=== PATIENT | male | born 1945 | race Caucasian/White ===

== ENCOUNTER 2018-02-15 22:03 | Emergency (ER) | payer MEDICARE ==
[2018-02-15 22:18] VITALS: RESP 20; TEMP 99.1
[2018-02-15] MEDS ORDERED: ORPHENADRINE 30 MG/ML 2 ML VIAL IVP STA (22:25)
--- NOTE | 2018-02-15 22:31 | ED ---
Back Pain HPI <BiankaosmelJakub - Last Filed: 02/16/18 02:01> - General Source: patient, RN notes reviewed Mode of arrival: EMS Limitations: no limitations <Teagan Rodney - Last Filed: 02/16/18 03:31> - General Chief Complaint: Back Pain/Injury Stated Complaint: lower back pain Time Seen by Provider: 02/15/18 22:05 - History of Present Illness Initial Comments: This is a 73-year-old male who presents to the emergency department with chief complaint of low back pain. Patient was transported to the emergency department via EMS. Patient does have mild dementia but is able to answer all questions appropriately. Patient reports a history of low back pain. He denies any recent injuries or trauma. Patient states this evening he was lying in bed, reached over to grab food and felt pain in his low back. He states pain is positional. Denies saddle paresthesias or loss of bladder or bowel function. Denies numbness or tingling or radiation of pain down the legs. Denies recent fevers or chills, chest pain or shortness of breath, abdominal pain, nausea or vomiting. EMS reports that patient was ambulatory. (Teagan Rodney) - Related Data Home Medications Medication Instructions Recorded Confirmed Acetaminophen [Tylenol] 1,000 mg PO Q6H PRN 02/15/18 02/15/18 Albuterol Inhaler [Ventolin Hfa 2 puff INHALATION RT-Q4H PRN 02/15/18 02/15/18 Inhaler] Ascorbic Acid [Vitamin C] 500 mg PO DAILY 02/15/18 02/15/18 Atorvastatin [Lipitor] 20 mg PO DAILY 02/15/18 02/15/18 Chlorhexidine Gluconate [Peridex] 15 ml PO BID 02/15/18 02/15/18 Cyanocobalamin (Vitamin B-12) 500 mcg PO DAILY 02/15/18 02/15/18 [Vitamin B-12] Diltiazem HCl [Diltiazem 24Hr ER] 120 mg PO DAILY 02/15/18 02/15/18 Ferrous Sulfate [Iron] 325 mg PO DAILY 02/15/18 02/15/18 Folic Acid 0.8 mg PO DAILY 02/15/18 02/15/18 Pantoprazole Sodium [Protonix] 40 mg PO HS 02/15/18 02/15/18 Polymyxin B-Trimeth Sulf Ophth 1 drop BOTH EYES Q3H 02/15/18 02/15/18 [Polytrim Opthalmic] QUEtiapine [SEROquel] 50 mg PO HS 02/15/18 02/15/18 Sucralfate [Carafate] 1 gm PO QID 02/15/18 02/15/18 Sulfamethoxazole/Trimethoprim 1 tab PO BID 02/15/18 02/15/18 [Bactrim DS 800-160 mg] levETIRAcetam [Keppra] 500 mg PO Q12HR 02/15/18 02/15/18 traZODone HCL [Desyrel] 100 mg PO HS 02/15/18 02/15/18 Allergies Allergy/AdvReac Type Severity Reaction Status Date / Time No Known Allergies Allergy Verified 02/15/18 22:41 Review of Systems ROS Other: All systems not noted in ROS Statement are negative. <Jakub Gramajo - Last Filed: 02/16/18 02:01> ROS Other: All systems not noted in ROS Statement are negative. <Teagan Rodney - Last Filed: 02/16/18 03:31> ROS Statement: Those systems with pertinent positive or pertinent negative responses have been documented in the HPI. Past Medical History Past Medical History: CVA/TIA, GERD/Reflux, Hyperlipidemia, Hypertension History of Any Multi-Drug Resistant Organisms: None Reported Past Psychological History: No Psychological Hx Reported Smoking Status: Never smoker Past Alcohol Use History: Occasional Past Drug Use History: None Reported <Teagan Rodney - Last Filed: 02/16/18 03:31> General Exam <Jakub Gramajo - Last Filed: 02/16/18 02:01> Limitations: no limitations Back exam: Present: normal inspection, other (Bilateral SI joint tenderness). Absent: paraspinal tenderness, vertebral tenderness <Teagan Rodney - Last Filed: 02/16/18 03:31> - General Exam Comments Initial Comments: General: Awake and alert, well-developed; in no apparent distress. Pleasant elderly male with moments of confusion. HEENT: Head atraumatic, normocephalic. Pupils are equal, round and reactive to light. Extraocular movements intact. Oropharynx moist without erythema or exudate. Neck: Supple. Normal ROM. Cardiovascular: Regular rate and rhythm. No murmurs, rubs or gallops. Chest symmetrical. Respiratory: Lungs clear to auscultation bilaterally. No wheezes, rales or rhonchi. Normal respiratory effort with no use of accessory muscles. Abdomen: Soft, non-tender, non-distended. No rigidity, rebound or guarding. Normal bowel sounds in all 4 quadrants. Musculoskeletal: Normal ROM, no tenderness bilateral upper and lower extremities. Ambulating normally. Skin: [place], warm and dry without rashes or lesions. Neurological: Alert and oriented x3 with moments of confusion. CN II-XII grossly intact. Speech is fluent and answers are appropriate. No focal neuro deficits. Psychiatric: Normal mood and affect. No overt signs of depression or anxiety noted. (Teagan Rodney) Vital Signs 02/15/18 02/16/18 22:11 01:10 Temperature 99.1 F 99.1 F Pulse Rate 87 90 Respiratory 20 20 Rate Blood Pressure 140/66 144/68 O2 Sat by Pulse 98 99 Oximetry Medical Decision Making <Jakub Gramajo - Last Filed: 02/16/18 02:01> - Radiology Data Radiology results: report reviewed <Teagan Rodney - Last Filed: 02/16/18 03:31> - Medical Decision Making I saw this patient in conjunction with the physician household personal assistant. I performed independent history and physical exam. Agree with case management. (Jakub Gramajo) This is a 73-year-old male who presents to the emergency department via EMS with chief complaint of low back pain. Patient denies any recent falls, injuries or trauma. 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 His son was contacted who stated that patient has been complaining of low back pain for a couple of days. There is mild tenderness on palpation of bilateral SI joints. An x-ray of the lumbar spine was obtained which revealed an old mild L4 compression fracture, however no acute abnormalities. Patient has been ambulatory in the emergency department. His vital signs are stable. He has no other complaints. He was given Norflex and patient states his symptoms have improved. He will be discharged back home at this time. All questions answered. (Teagan Rodney) - Radiology Data Lumbar spine x-ray impression: Old mild L4 compression fracture. No acute bony abnormality. (Teagan Rodney) Disposition <Jakub Gramajo - Last Filed: 02/16/18 02:01> Is patient prescribed a controlled substance at d/c from ED?: No Time of Disposition: 23:38 <Teagan Rodney - Last Filed: 02/16/18 03:31> Clinical Impression: Mechanical back pain Disposition: HOME SELF-CARE Condition: Good Instructions: Acute Low Back Pain (ED) Additional Instructions: Please follow up with primary care provider within 1-2 days. Return to emergency department if symptoms should worsen or any concerns arise. Referrals: None,Stated [Primary Care Provider] - 1-2 days Toy Benitez DO [Doctor of Osteopathic Medicine] - 1-2 days
--- NOTE | 2018-02-15 23:32 | XR ---
EXAMINATION TYPE: XR lumbar spine 2 or 3V DATE OF EXAM: 02/15/2018 COMPARISON: NONE HISTORY: Back pain TECHNIQUE: 3 views FINDINGS: There is 25% anterior wedging of L4. Vertebra have normal alignment. There is mild spurring of the endplates. Posterior elements are intact. Sacroiliac joints are normal. IMPRESSION: Old mild L4 compression fracture. No acute bony abnormality.
[2018-02-16 02:44] VITALS: BP 144/68; PULSE 90
== END 2018-02-16 01:10 | disposition home or self-care (01) ==
LOC: EC 22:03
DX: M54.5 Low back pain (principal); G30.0 Alzheimer's disease with early onset; F02.80 Dementia in other diseases classified elsewhere, unspecified severity, without behavioral disturbance, psychotic disturbance, mood disturbance, and anxiety; E78.5 Hyperlipidemia, unspecified; I10 Essential (primary) hypertension; K21.9 Gastro-esophageal reflux disease without esophagitis; Z79.899 Other long term (current) drug therapy
CPT/HCPCS: 72100; 99284; 96374; J2360

== ENCOUNTER 2019-03-26 14:31 | Emergency (ER) | payer MEDICARE, OTHER ==
[2019-03-26 14:40] VITALS: RESP 16; TEMP 98.1
[2019-03-26] MEDS ORDERED: MECLIZINE 12.5 MG TAB PO STA (15:34)
[2019-03-26] MEDS ORDERED: SODIUM CHLORIDE 0.9% 500 ML 500 ML IV STA (15:34)
--- NOTE | 2019-03-26 16:03 | ED ---
Dizziness HPI - General Chief Complaint: Dizziness Stated Complaint: dizziness Time Seen by Provider: 03/26/19 15:34 Source: patient, EMS, RN notes reviewed Mode of arrival: EMS Limitations: no limitations - History of Present Illness Initial Comments: This a 74-year-old male presents emergency Department from [facility] chief complaint episode of dizziness. Patient states that he was dizzy earlier today. Patient states he attempted to stand him up and states that he did have blood pressure or pulse was low. Patient states that currently he has no symptoms. Patient states that shortly after they tried to stand him all the symptoms had resolved. He has no current headache. He states when he was dizzy he had some blurred vision but that had resolved. Patient does have a history of dementia, prior CVA. General the room states that he seems to be at his normal baseline at this time. There is no focal weakness. Patient does have difficulty ambulating normally secondary to chronic knee pain. Patient had no reports of chest pain, shortness breath, nausea, vomiting, diarrhea constipation no recent fevers or chills. - Related Data Home Medications Medication Instructions Recorded Confirmed Atorvastatin [Lipitor] 20 mg PO HS 02/15/18 03/26/19 Ferrous Sulfate [Iron] 325 mg PO HS 02/15/18 03/26/19 Pantoprazole Sodium [Protonix] 40 mg PO HS 02/15/18 03/26/19 traZODone HCL [Desyrel] 100 mg PO HS 02/15/18 03/26/19 Albuterol Sulfate [Proair 2 puff PO RT-Q4H PRN 03/26/19 03/26/19 Respiclick] Artificial Tears-Hypromellose 2 drops BOTH EYES TID PRN 03/26/19 03/26/19 [Artificial Tear Drops] Aspirin EC [Ecotrin Low Dose] 81 mg PO HS 03/26/19 03/26/19 Donepezil [Aricept] 2.5 mg PO HS 03/26/19 03/26/19 Gabapentin [Neurontin] 300 mg PO BID 03/26/19 03/26/19 HYDROcodone/APAP 5-325MG [[place] 1 tab PO Q8H PRN 03/26/19 03/26/19 5-325] HYDROcodone/APAP 5-325MG [[place] 1 tab PO TID@0700,1300,1900 03/26/19 03/26/19 5-325] Ipratropium Nebulized [Atrovent 0.5 mg INHALATION RT-Q4H PRN 03/26/19 03/26/19 Nebulized 0.2 MG/ML] Ketoconazole 2% Cream [Nizoral 2%] 1 applic TOPICAL BID@0700,1600 03/26/19 03/26/19 Ketoconazole 2% Shampoo [Nizoral] 1 applic TOPICAL DIRECTED 03/26/19 03/26/19 LORazepam [Ativan] 0.5 mg PO TID@0000,0700,1600 03/26/19 03/26/19 LORazepam [Ativan] 1 mg PO DAILY@1700 03/26/19 03/26/19 Lidocaine HCl [Aspercreme] 1 applic TOPICAL TID 03/26/19 03/26/19 Magnesium Hydroxide [Milk of 2,400 mg PO Q72H PRN 03/26/19 03/26/19 Magnesia] Melatonin 3 mg PO HS PRN 03/26/19 03/26/19 Menthol [Biofreeze] 1 applic TOPICAL Q8H PRN 03/26/19 03/26/19 Mylanta 30 ml PO Q6H PRN 03/26/19 03/26/19 Polyethylene Glycol 3350 [Miralax] 17 gram PO DAILY@1600 03/26/19 03/26/19 Potassium Chloride 8 meq PO BID 03/26/19 03/26/19 Sennosides [Senna] 8.6 mg PO HS 03/26/19 03/26/19 Torsemide [Demadex] 40 mg PO BID 03/26/19 03/26/19 amLODIPine [Norvasc] 10 mg PO DAILY 03/26/19 03/26/19 risperiDONE [RisperDAL] 0.25 mg PO HS 03/26/19 03/26/19 Allergies Allergy/AdvReac Type Severity Reaction Status Date / Time cat dander Allergy Dyspnea Verified 03/26/19 16:11 Review of Systems ROS Statement: Those systems with pertinent positive or pertinent negative responses have been documented in the HPI. ROS Other: All systems not noted in ROS Statement are negative. Past Medical History Past Medical History: CVA/TIA, GERD/Reflux, Hyperlipidemia, Hypertension History of Any Multi-Drug Resistant Organisms: None Reported Past Surgical History: No Surgical Hx Reported Past Psychological History: No Psychological Hx Reported Smoking Status: Never smoker Past Alcohol Use History: Occasional Past Drug Use History: None Reported General Exam Limitations: no limitations General appearance: alert, in no apparent distress Head exam: Present: atraumatic, normocephalic, normal inspection Eye exam: Present: normal appearance, PERRL, EOMI. Absent: scleral icterus, conjunctival injection, periorbital swelling ENT exam: Present: normal exam, normal oropharynx, mucous membranes moist Neck exam: Present: normal inspection, full ROM. Absent: tenderness, meningismus, lymphadenopathy Respiratory exam: Present: normal lung sounds bilaterally. Absent: respiratory distress, wheezes, rales, rhonchi, stridor Cardiovascular Exam: Present: regular rate, normal rhythm, normal heart sounds. Absent: systolic murmur, diastolic murmur, rubs, gallop, clicks Neurological exam: Present: alert, oriented X3, CN II-XII intact, reflexes normal, other (Finger to nose intact bilaterally without over shooting). Absent: motor sensory deficit Skin exam: Present: warm, dry, intact, normal color. Absent: rash Course Vital Signs 03/26/19 14:33 Temperature 98.1 F Pulse Rate 83 Respiratory 16 Rate Blood Pressure 144/86 O2 Sat by Pulse 98 Oximetry Medical Decision Making - Medical Decision Making Patient's found to be mildly dehydrated was given a fluid bolus. Patient is asy mptomatic. Patient had a near syncopal episode at [facility]. Patient was symptom-free prior arrival. Patient's blood pressure, heart rate has been within normal limits. I did perform a CT, x-ray, urinalysis and labs. Patient will be discharged back to [facility]. Patient and family agree. - Lab Data Result diagrams: 03/26/19 15:49 03/26/19 15:49 Lab Results 03/26/19 03/26/19 03/26/19 Range/Units 15:49 15:49 15:49 WBC 6.7 (3.8-10.6) k/uL RBC 4.43 (4.30-5.90) m/uL Hgb 14.0 (13.0-17.5) gm/dL Hct 40.8 (39.0-53.0) % MCV 92.1 (80.0-100.0) fL MCH 31.6 (25.0-35.0) pg MCHC 34.3 (31.0-37.0) g/dL RDW 13.0 (11.5-15.5) % Plt Count 184 (150-450) k/uL Neutrophils % 66 % Lymphocytes % 20 % Monocytes % 9 % Eosinophils % 3 % Basophils % 1 % Neutrophils # 4.5 (1.3-7.7) k/uL Lymphocytes # 1.3 (1.0-4.8) k/uL Monocytes # 0.6 (0-1.0) k/uL Eosinophils # 0.2 (0-0.7) k/uL Basophils # 0.1 (0-0.2) k/uL Sodium 139 (137-145) mmol/L Potassium 3.9 (3.5-5.1) mmol/L Chloride 102 (98-107) mmol/L Carbon Dioxide 26 (22-30) mmol/L Anion Gap 11 mmol/L BUN 27 H (9-20) mg/dL Creatinine 1.59 H (0.66-1.25) mg/dL Est GFR (CKD-EPI)AfAm 49 (>60 ml/min/1.73 sqM) Est GFR (CKD-EPI)NonAf 42 (>60 ml/min/1.73 sqM) Glucose 118 H (74-99) mg/dL Calcium 9.1 (8.4-10.2) mg/dL Total Bilirubin 0.8 (0.2-1.3) mg/dL AST 35 (17-59) U/L ALT 20 L (21-72) U/L Alkaline Phosphatase 63 (38-126) U/L Troponin I <0.012 (0.000-0.034) ng/mL Total Protein 8.0 (6.3-8.2) g/dL Albumin 4.3 (3.5-5.0) g/dL Urine Color Urine Appearance (Clear) Urine pH (5.0-8.0) Ur Specific [place] (1.001-1.035) Urine Protein (Negative) Urine Glucose (UA) (Negative) Urine Ketones (Negative) Urine Blood (Negative) Urine Nitrite (Negative) Urine Bilirubin (Negative) Urine Urobilinogen (<2.0) mg/dL Ur Leukocyte Esterase (Negative) 03/26/19 Range/Units 16:30 WBC (3.8-10.6) k/uL RBC (4.30-5.90) m/uL Hgb (13.0-17.5) gm/dL Hct (39.0-53.0) % MCV (80.0-100.0) fL MCH (25.0-35.0) pg MCHC (31.0-37.0) g/dL RDW (11.5-15.5) % Plt Count (150-450) k/uL Neutrophils % % Lymphocytes % % Monocytes % % Eosinophils % % Basophils % % Neutrophils # (1.3-7.7) k/uL Lymphocytes # (1.0-4.8) k/uL Monocytes # (0-1.0) k/uL Eosinophils # (0-0.7) k/uL Basophils # (0-0.2) k/uL Sodium (137-145) mmol/L Potassium (3.5-5.1) mmol/L Chloride (98-107) mmol/L Carbon Dioxide (22-30) mmol/L Anion Gap mmol/L BUN (9-20) mg/dL Creatinine (0.66-1.25) mg/dL Est GFR (CKD-EPI)AfAm (>60 ml/min/1.73 sqM) Est GFR (CKD-EPI)NonAf (>60 ml/min/1.73 sqM) Glucose (74-99) mg/dL Calcium (8.4-10.2) mg/dL Total Bilirubin (0.2-1.3) mg/dL AST (17-59) U/L ALT (21-72) U/L Alkaline Phosphatase (38-126) U/L Troponin I (0.000-0.034) ng/mL Total Protein (6.3-8.2) g/dL Albumin (3.5-5.0) g/dL Urine Color Light Yellow Urine Appearance Clear (Clear) Urine pH 7.0 (5.0-8.0) Ur Specific [place] 1.008 (1.001-1.035) Urine Protein Negative (Negative) Urine Glucose (UA) Negative (Negative) Urine Ketones Negative (Negative) Urine Blood Negative (Negative) Urine Nitrite Negative (Negative) Urine Bilirubin Negative (Negative) Urine Urobilinogen <2.0 (<2.0) mg/dL Ur Leukocyte Esterase Negative (Negative) Disposition Clinical Impression: Dehydration, Near syncope Disposition: HOME SELF-CARE Condition: Stable Instructions (If sedation given, give patient instructions): Dizziness (ED) Additional Instructions: Please return to the Emergency Department if symptoms worsen or any other con cerns. Is patient prescribed a controlled substance at d/c from ED?: No Referrals: Jordi Oliver MD [Primary Care Provider] - 1-2 days Time of Disposition: 16:55
[2019-03-26 16:07] LABS: Basophils # (A) 0.1 k/uL (0-0.2); Basophils % (A) 1 %; Eosinophils # (A) 0.2 k/uL (0-0.7); Eosinophils % (A) 3 %; HCT 40.8 % (39.0-53.0); Lymphocytes # (A) 1.3 k/uL (1.0-4.8); Lymphocytes % (A) 20 %; MCH 31.6 pg (25.0-35.0); MCHC 34.3 g/dL (31.0-37.0); MCV 92.1 fL (80.0-100.0); Mean Platelet Volume 7.5; Monocytes # (A) 0.6 k/uL (0-1.0); Monocytes % (A) 9 %; Neutrophils # (A) 4.5 k/uL (1.3-7.7); Neutrophils % (A) 66 %; Platelet Count 184 k/uL (150-450); RBC 4.43 m/uL (4.30-5.90); WBC 6.7 k/uL (3.8-10.6)
--- NOTE | 2019-03-26 16:08 | XR ---
EXAMINATION TYPE: XR chest 2V DATE OF EXAM: 03/26/2019 COMPARISON: NONE HISTORY: Dizziness and weakness. TECHNIQUE: Frontal and lateral views of the chest are obtained. FINDINGS: There is chronic parenchymal change without suspicious focal air space opacity, pleural ef fusion, or pneumothorax seen. The cardiac silhouette size is enlarged. The osseous structures are demineralized. 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 Overlying epicardial pacer wires. Metallic density near aortic root of uncertain etiology perhaps fractured stent. IMPRESSION: Chronic changes and cardiomegaly without acute pulmonary process.
[2019-03-26 16:17] LABS: Albumin 4.3 g/dL (3.5-5.0); Calcium 9.1 mg/dL (8.4-10.2); Total Bilirubin 0.8 mg/dL (0.2-1.3)
[2019-03-26 16:24] LABS: Potassium 3.9 mmol/L (3.5-5.1)
--- NOTE | 2019-03-26 16:24 | CT ---
EXAMINATION TYPE: CT brain wo con DATE OF EXAM: 03/26/2019 HISTORY: Dizziness. CT DLP: 1143.4 mGycm. Automated Exposure Control for Dose Reduction was Utilized. TECHNIQUE: CT scan of the head is performed without contrast. COMPARISON: None. FINDINGS: There is no acute intracranial hemorrhage or midline shift identified. There is diffuse v entricular and sulcal prominence consistent with diffuse age-related cerebral atrophy. There is low- attenuation in the periventricular white matter consistent with chronic small vessel ischemic change. There is small mucous retention cyst or polyp in the posterior left ethmoid sinus axial image 41. Re mainder of visualized sinuses are clear. Globes are intact bilaterally. Vascular calcification distal internal carotid arteries bilaterally. IMPRESSION: No acute intracranial hemorrhage or midline shift. There is mild to moderate diffuse ag e-related cerebral atrophy and chronic small vessel ischemic change noted.
[2019-03-26 16:48] LABS: Appearance,Urine Clear (Clear); Bilirubin,Urine Negative (Negative); Blood,Urine Negative (Negative); Color,Urine Light Yellow; Glucose,Urine (UA) Negative (Negative); Ketones,Urine Negative (Negative); Leukocyte Esterase,Urine Negative (Negative); Nitrite,Urine Negative (Negative); Protein,Urine Negative (Negative); Specific Gravity,Urine 1.008 (1.001-1.035); Urobilinogen,Urine <2.0 mg/dL (<2.0)
[2019-03-26 17:09] VITALS: BP 141/79; PULSE 70
== END 2019-03-26 17:10 | disposition home or self-care (01) ==
LOC: EC 14:31
DX: E86.0 Dehydration (principal); R55 Syncope and collapse; G89.29 Other chronic pain; M25.569 Pain in unspecified knee; K21.9 Gastro-esophageal reflux disease without esophagitis; E78.5 Hyperlipidemia, unspecified; I10 Essential (primary) hypertension; Z91.048 Other nonmedicinal substance allergy status; Z79.82 Long term (current) use of aspirin; Z79.891 Long term (current) use of opiate analgesic; Z79.899 Other long term (current) drug therapy; Z86.73 Personal history of transient ischemic attack (TIA), and cerebral infarction without residual deficits
CPT/HCPCS: 36415; 70450; 71046; 80053; 81003; 84484; 85025; 99285

== ENCOUNTER 2020-06-09 04:39 | Inpatient (IN) | payer MEDICARE, OTHER ==
[2020-06-09] MEDS ORDERED: ACETAMINOPHEN TAB 325 MG TAB PO PRN ×2 (04:42→09:32)
--- NOTE | 2020-06-09 04:47 | ED ---
Recheck HPI - General Chief Complaint: Shortness of Breath Stated Complaint: SOB, +COVID Time Seen by Provider: 06/09/20 04:42 Source: patient, EMS, RN notes reviewed, old records reviewed Mode of arrival: EMS Limitations: altered mental status, physical limitation - History of Present Illness Initial Comments: This is a 75 show male DF for evaluation patient Dese for evaluation of known coronavirus infection with hypoxia. Patient requiring supplemental O2 which is a new symptom for him. Patient himself is a poor strain secondary severe dementia history obtained from chart MD Complaint: other (Known coronavirus with hypoxia) -: unknown Returns Today for: persistent/worsening pain related to initial visit, other (Worsening oxygenation) Symptoms Since Prior Visit: fever Associated Symptoms: none Treatments Prior to Arrival: other medications - Related Data Home Medications Medication Instructions Recorded Confirmed Atorvastatin [Lipitor] 20 mg PO HS 02/15/18 03/26/19 Ferrous Sulfate [Iron] 325 mg PO HS 02/15/18 03/26/19 Pantoprazole Sodium [Protonix] 40 mg PO HS 02/15/18 03/26/19 traZODone HCL [Desyrel] 100 mg PO HS 02/15/18 03/26/19 Albuterol Sulfate [Proair 2 puff PO RT-Q4H PRN 03/26/19 03/26/19 Respiclick] Artificial Tears-Hypromellose 2 drops BOTH EYES TID PRN 03/26/19 03/26/19 [Artificial Tear Drops] Aspirin EC [Ecotrin Low Dose] 81 mg PO HS 03/26/19 03/26/19 Donepezil [Aricept] 2.5 mg PO HS 03/26/19 03/26/19 Gabapentin [Neurontin] 300 mg PO BID 03/26/19 03/26/19 HYDROcodone/APAP 5-325MG [[place] 1 tab PO Q8H PRN 03/26/19 03/26/19 5-325] HYDROcodone/APAP 5-325MG [[place] 1 tab PO TID@0700,1300,1900 03/26/19 03/26/19 5-325] Ipratropium Nebulized [Atrovent 0.5 mg INHALATION RT-Q4H PRN 03/26/19 03/26/19 Nebulized 0.2 MG/ML] Ketoconazole 2% Cream [Nizoral 2%] 1 applic TOPICAL BID@0700,1600 03/26/19 03/26/19 Ketoconazole 2% Shampoo [Nizoral] 1 applic TOPICAL DIRECTED 03/26/19 03/26/19 LORazepam [Ativan] 0.5 mg PO TID@0000,0700,1600 03/26/19 03/26/19 LORazepam [Ativan] 1 mg PO DAILY@1700 03/26/19 03/26/19 Lidocaine HCl [Aspercreme] 1 applic TOPICAL TID 03/26/19 03/26/19 Magnesium Hydroxide [Milk of 2,400 mg PO Q72H PRN 03/26/19 03/26/19 Magnesia] Melatonin 3 mg PO HS PRN 03/26/19 03/26/19 Menthol [Biofreeze] 1 applic TOPICAL Q8H PRN 03/26/19 03/26/19 Mylanta 30 ml PO Q6H PRN 03/26/19 03/26/19 Potassium Chloride 8 meq PO BID 03/26/19 03/26/19 Sennosides [Senna] 8.6 mg PO HS 03/26/19 03/26/19 Torsemide [Demadex] 40 mg PO BID 03/26/19 03/26/19 amLODIPine [Norvasc] 10 mg PO DAILY 03/26/19 03/26/19 polyethylene glycoL 3350 [Miralax] 17 gram PO DAILY@1600 03/26/19 03/26/19 risperiDONE [RisperDAL] 0.25 mg PO HS 03/26/19 03/26/19 Allergies Allergy/AdvReac Type Severity Reaction Status Date / Time cat dander Allergy Dyspnea Verified 03/26/19 16:11 Review of Systems ROS Statement: Those systems with pertinent positive or pertinent negative responses have been documented in the HPI. ROS Other: All systems not noted in ROS Statement are negative. Past Medical History Past Medical History: CVA/TIA, GERD/Reflux, Hyperlipidemia, Hypertension History of Any Multi-Drug Resistant Organisms: None Reported Past Surgical History: No Surgical Hx Reported Past Psychological History: No Psychological Hx Reported Smoking Status: Unknown if ever smoked Past Alcohol Use History: Occasional Past Drug Use History: None Reported General Exam Limitations: altered mental status, physical limitation General appearance: alert, in no apparent distress Head exam: Present: atraumatic, normocephalic, normal inspection Eye exam: Present: normal appearance, PERRL, EOMI. Absent: scleral icterus, conjunctival injection, periorbital swelling ENT exam: Present: normal exam, mucous membranes moist Neck exam: Present: normal inspection. Absent: tenderness, meningismus, lymphadenopathy Respiratory exam: Present: normal lung sounds bilaterally. Absent: respiratory distress, wheezes, rales, rhonchi, stridor Cardiovascular Exam: Present: regular rate, normal rhythm, normal heart sounds. Absent: systolic murmur, diastolic murmur, rubs, gallop, clicks GI/Abdominal exam: Present: soft, normal bowel sounds. Absent: distended, tende rness, guarding, rebound, rigid Extremities exam: Present: normal inspection, full ROM, normal capillary refill. Absent: tenderness, pedal edema, joint swelling, calf tenderness Back exam: Present: normal inspection Neurological exam: Present: alert, oriented X3, CN II-XII intact Psychiatric exam: Present: normal affect, normal mood Skin exam: Present: warm, dry, intact, normal color. Absent: rash Course Vital Signs 06/09/20 04:41 Temperature 98.7 F Pulse Rate 100 Respiratory 18 Rate Blood Pressure 144/95 O2 Sat by Pulse 93 L Oximetry - Reevaluation(s) Reevaluation #1: 06/09/20 06:17 Medical record is reviewed Reevaluation #2: 06/09/20 06:17 Patient again oxygen improved with supplemental O2 Medical Decision Making - Medical Decision Making 75 male DEL with known coronavirus now with coronavirus and hypoxia. Improving with supplemental O2. Patient will place of - Lab Data Result diagrams: 06/09/20 05:03 06/09/20 05:03 Lab Results 06/09/20 06/09/20 06/09/20 Range/Units 05:03 05:03 05:03 WBC 11.1 H (3.8-10.6) k/uL RBC 5.16 (4.30-5.90) m/uL Hgb 16.0 (13.0-17.5) gm/dL Hct 47.9 (39.0-53.0) % MCV 92.8 (80.0-100.0) fL MCH 31.0 (25.0-35.0) pg MCHC 33.4 (31.0-37.0) g/dL RDW 13.8 (11.5-15.5) % Plt Count 189 (150-450) k/uL MPV 8.6 Neutrophils % 89 % Lymphocytes % 2 % Monocytes % 6 % Eosinophils % 1 % Basophils % 2 % Neutrophils # 9.9 H (1.3-7.7) k/uL Lymphocytes # 0.2 L (1.0-4.8) k/uL Monocytes # 0.6 (0-1.0) k/uL Eosinophils # 0.1 (0-0.7) k/uL Basophils # 0.2 (0-0.2) k/uL PT 11.3 (9.0-12.0) sec INR 1.1 (<1.2) APTT 26.0 (22.0-30.0) sec D-Dimer 1.00 H (<0.60) mg/L FEU Sodium 144 (137-145) mmol/L Potassium 5.5 H (3.5-5.1) mmol/L Chloride 103 (98-107) mmol/L Carbon Dioxide 30 (22-30) mmol/L Anion Gap 11 mmol/L BUN 63 H (9-20) mg/dL Creatinine 2.38 H (0.66-1.25) mg/dL Est GFR (CKD-EPI)AfAm 30 (>60 ml/min/1.73 sqM) Est GFR (CKD-EPI)NonAf 26 (>60 ml/min/1.73 sqM) Glucose 120 H (74-99) mg/dL Plasma Lactic Acid Dain (0.7-2.0) mmol/L Calcium 9.3 (8.4-10.2) mg/dL Magnesium 3.1 H (1.6-2.3) mg/dL Total Bilirubin 1.2 (0.2-1.3) mg/dL AST 60 H (17-59) U/L ALT 22 (4-49) U/L Alkaline Phosphatase 62 (38-126) U/L Lactate Dehydrogenase 1173 H (313-618) U/L C-Reactive Protein 67.6 H (<10.0) mg/L Total Protein 8.8 H (6.3-8.2) g/dL Albumin 4.3 (3.5-5.0) g/dL 06/09/20 Range/Units 05:03 WBC (3.8-10.6) k/uL RBC (4.30-5.90) m/uL Hgb (13.0-17.5) gm/dL Hct (39.0-53.0) % MCV (80.0-100.0) fL MCH (25.0-35.0) pg MCHC (31.0-37.0) g/dL RDW (11.5-15.5) % Plt Count (150-450) k/uL MPV Neutrophils % % Lymphocytes % % Monocytes % % Eosinophils % % Basophils % % Neutrophils # (1.3-7.7) k/uL Lymphocytes # (1.0-4.8) k/uL Monocytes # (0-1.0) k/uL Eosinophils # (0-0.7) k/uL Basophils # (0-0.2) k/uL PT (9.0-12.0) sec INR (<1.2) APTT (22.0-30.0) sec D-Dimer (<0.60) mg/L FEU Sodium (137-145) mmol/L Potassium (3.5-5.1) mmol/L Chloride (98-107) mmol/L Carbon Dioxide (22-30) mmol/L Anion Gap mmol/L BUN (9-20) mg/dL Creatinine (0.66-1.25) mg/dL Est GFR (CKD-EPI)AfAm (>60 ml/min/1.73 sqM) Est GFR (CKD-EPI)NonAf (>60 ml/min/1.73 sqM) Glucose (74-99) mg/dL Plasma Lactic Acid Dain 1.4 (0.7-2.0) mmol/L Calcium (8.4-10.2) mg/dL Magnesium (1.6-2.3) mg/dL Total Bilirubin (0.2-1.3) mg/dL AST (17-59) U/L ALT (4-49) U/L Alkaline Phosphatase (38-126) U/L Lactate Dehydrogenase (313-618) U/L C-Reactive Protein (<10.0) mg/L Total Protein (6.3-8.2) g/dL Albumin (3.5-5.0) g/dL - EKG Data -: EKG Interpreted by Me (EKG is sinus rhythm 87 [place] 184 QRS 84 QTc 442) - Radiology Data Radiology results: report reviewed (Chest x-rays negative for significant acute disease maybe retrocardiac opacity), image reviewed Critical Care Time Critical Care Time: Yes Total Critical Care Time: 31 Disposition Clinical Impression: COVID-19, Hypoxia, Weakness, Dementia Disposition: ADMITTED IP TO THIS [facility] Condition: Fair Is patient prescribed a controlled substance at d/c from ED?: No Referrals: Jordi Oliver MD [Primary Care Provider] - 1-2 days
[2020-06-09] MEDS: ACETAMINOPHEN TAB 500 MG TAB PO STA ×2 (05:11→05:14)
[2020-06-09] MEDS: IBUPROFEN 600 MG TAB PO STA ×2 (05:12→05:15)
[2020-06-09 05:17] LABS: Basophils # (A) 0.2 k/uL (0-0.2); Basophils % (A) 2 %; Eosinophils # (A) 0.1 k/uL (0-0.7); Eosinophils % (A) 1 %; HCT 47.9 % (39.0-53.0); Lymphocytes # (A) 0.2 k/uL (1.0-4.8); Lymphocytes % (A) 2 %; MCHC 33.4 g/dL (31.0-37.0); MCV 92.8 fL (80.0-100.0); Mean Platelet Volume 8.6; Monocytes # (A) 0.6 k/uL (0-1.0); Monocytes % (A) 6 %; Neutrophils # (A) 9.9 k/uL (1.3-7.7); Neutrophils % (A) 89 %; Platelet Count 189 k/uL (150-450); RBC 5.16 m/uL (4.30-5.90); RDW 13.8 % (11.5-15.5); WBC 11.1 k/uL (3.8-10.6)
[2020-06-09 05:30] LABS: INR 1.1 (<1.2); Prothrombin Time 11.3 sec (9.0-12.0)
[2020-06-09 05:32] LABS: Albumin 4.3 g/dL (3.5-5.0); C Reactive Protein 67.6 mg/L (<10.0); Calcium 9.3 mg/dL (8.4-10.2); Magnesium 3.1 mg/dL (1.6-2.3); Potassium 5.5 mmol/L (3.5-5.1); Total Bilirubin 1.2 mg/dL (0.2-1.3); Total Protein 8.8 g/dL (6.3-8.2)
--- NOTE | 2020-06-09 05:47 | XR ---
EXAM: XR Chest, 1 View CLINICAL HISTORY: ITS.REASON XR Reason: Suspected COVID-19 pneumonia TECHNIQUE: Frontal view of the chest. COMPARISON: 03/26/2019 FINDINGS: Lungs: Patchy retrocardiac opacity, new from 03/29/2019. Pleural space: Unchanged blunting of the left costophrenic angle. No pneumothorax. Heart: Mild cardiomegaly. Median sternotomy wires and surgical clips along the left heart border consistent with prior CABG. Mediastinum: Unremarkable. Bones/joints: Unremarkable. IMPRESSION: Patchy retrocardiac opacity which may represent aspiration or infection.
[2020-06-09] MEDS ORDERED: NALOXONE 0.4 MG/ML 1 ML VIAL IV PRN (06:14)
[2020-06-09] MEDS ORDERED: SODIUM CHLORIDE 0.9% 1,000 ML IV STA ×2 (06:15)
[2020-06-09] MEDS ORDERED: ENOXAPARIN 40 MG/0.4 ML SYRINGE SQ SCH (09:00)
[2020-06-09] MEDS ORDERED: ARTIFICIAL TEARS-HYPROMELLOSE DROPS 15 ML BTL BOTH EYES PRN (09:32)
[2020-06-09] MEDS ORDERED: MAG HYDROX/AL HYDROX/SIMETH 30 ML CUP PO PRN (09:32)
[2020-06-09] MEDS ORDERED: ALBUTEROL HFA INHALER INHALATION PRN (09:32)
[2020-06-09] MEDS ORDERED: MAGNESIUM HYDROXIDE 2,400 MG/10 ML CUP PO PRN (09:32)
[2020-06-09] MEDS ORDERED: SPIRONOLACTONE 25 MG TAB PO SCH (09:45)
[2020-06-09] MEDS: amLODIPine 10 MG TAB PO SCH (09:52)
[2020-06-09] MEDS: CHOLECALCIFEROL 1,000 UNIT TAB PO SCH (09:52)
[2020-06-09 10:08] LABS: Ferritin 1248.6 ng/mL (22.0-322.0)
[2020-06-09] MEDS: HYDROcodone/APAP 5-325MG 1 EACH TAB PO SCH ×2 (12:27→21:43)
--- NOTE | 2020-06-09 13:57 | NM ---
EXAMINATION TYPE: NM pul perfusion DATE OF EXAM: 06/09/2020 COMPARISON: Chest x-ray same date HISTORY: Covid, shortness of breath Following administration of 5.3 mCi Tc 99m MAA. Images obtained post injection. FINDINGS: Homogenous uptake of radiopharmaceutical. IMPRESSION: Low probability for pulmonary embolus
[2020-06-09] MEDS: LORazepam 0.5 MG TAB PO SCH (14:49)
[2020-06-09] MEDS: LORazepam 1 MG TAB PO SCH (14:50)
--- NOTE | 2020-06-09 15:17 | P.CNPUL ---
History of Present Illness Consult date: 06/09/20 Requesting physician: Michi Sullivan Reason for consult: dyspnea, abnormal CXR/CT Chief complaint: Altered mental status, hypoxemia History of present illness: This is a 75-year-old male patient with a history of previous CVA/TIA, gastroesophageal reflux disease, hyperlipidemia, hypertension, dementia. He was tested positive for CoVID 19 in the outpatient setting he was developing increasing shortness of breath and hypoxemia and seen in the emergency room earlier this morning for the same. Chest x-ray revealed patchy retrocardiac opacity possible aspiration versus infection. White count 11.1. Hemoglobin 16.0. Lymphocytes 0.2. D-dimer 1.00. INR 1.1. Sodium 134. Potassium 5.5. Creatinine 2.38. Ferritin 1248. LDH 1173. C-reactive proteins 67.6. VQ scan revealed low probability for pulmonary embolus. He did receive Lovenox. Initiated on dexamethasone. He is seen today in consultation on the regular medical floor. He is currently awake and alert. Continue O2 saturations in the 90s on 3 L/m per nasal cannula. He is afebrile. Swallow evaluation in progress. The patient is a poor historian. Review of Systems ROS unobtainable: due to mental status Past Medical History Past Medical History: CVA/TIA, Dementia, GERD/Reflux, Hyperlipidemia, Hypertension Additional Past Medical History / Comment(s): Per [facility] pt had +rapid covid test on 06/01/20 and + covid throat swab on 06/03/20. Other hx: Vascular dementia, TIA, chronic pain bilateral knees and back, unsteady gait, muscle weakness, falls, bilateral leg edema, anemia History of Any Multi-Drug Resistant Organisms: None Reported Past Surgical History: Coronary Bypass/CABG, Heart Catheterization, Heart Catheterization With Stent Additional Past Surgical History / Comment(s): Salo believes pt has 1-2 vessel CABG approximately 8-10 yrs ago in [place] and has had PCI/stent but salo does not know date. Past Anesthesia/Blood Transfusion Reactions: No Reported Reaction Date of Last Stent Placement:: unkn Smoking Status: Never smoker - Past Family History Father History Unknown: Yes Mother History Unknown: Yes Medications and Allergies Home Medications Medication Instructions Recorded Confirmed Type Atorvastatin [Lipitor] 20 mg PO HS 02/15/18 06/09/20 History Pantoprazole Sodium [Protonix] 40 mg PO AC-SUPPER 02/15/18 06/09/20 History Albuterol Sulfate [Proair 2 puff INHALATION RT-Q4H PRN 03/26/19 06/09/20 History Respiclick] Artificial Tears-Hypromellose 2 drops BOTH EYES Q8H PRN 03/26/19 06/09/20 History [Artificial Tear Drops] Aspirin EC [Ecotrin Low Dose] 81 mg PO HS 03/26/19 06/09/20 History Donepezil [Aricept] 2.5 mg PO HS 03/26/19 06/09/20 History HYDROcodone/APAP 5-325MG [[place] 1 tab PO Q8H PRN 03/26/19 06/09/20 History 5-325] HYDROcodone/APAP 5-325MG [[place] 1 tab PO TID@0700,1300,1900 03/26/19 06/09/20 History 5-325] LORazepam [Ativan] 0.5 mg PO TID@0000,0700,1600 03/26/19 06/09/20 History LORazepam [Ativan] 1 mg PO DAILY@1700 03/26/19 06/09/20 History Magnesium Hydroxide [Milk of 2,400 mg PO Q72H PRN 03/26/19 06/09/20 History Magnesia] Potassium Chloride 8 meq PO BID 03/26/19 06/09/20 History Torsemide [Demadex] 40 mg PO DIRECTED 03/26/19 06/09/20 History amLODIPine [Norvasc] 10 mg PO DAILY 03/26/19 06/09/20 History polyethylene glycoL 3350 [Miralax] 17 gram PO DAILY@1600 03/26/19 06/09/20 History Acetaminophen Tab [Tylenol] 650 mg PO Q6H PRN 06/09/20 06/09/20 History Cholecalciferol [Vitamin D3 (25 3,000 unit PO DAILY 06/09/20 06/09/20 History Mcg = 1000 Iu)] Mag Hydrox/Aluminum Hyd/Simeth 30 ml PO Q6H PRN 06/09/20 06/09/20 History [Mylanta Maximum Strength Liq] Spironolactone [Aldactone] 25 mg PO DAILY 06/09/20 06/09/20 History traZODone HCL 150 mg PO HS@2000 06/09/20 06/09/20 History Allergies Allergy/AdvReac Type Severity Reaction Status Date / Time cat dander Allergy Dyspnea Verified 03/26/19 16:11 Physical Exam Vitals: Vital Signs Temp Pulse Pulse Resp BP BP Pulse Ox 06/09/20 14:00 98.2 F 85 19 126/74 93 L 06/09/20 10:00 98.0 F 95 18 129/81 94 L 06/09/20 06:54 80 18 124/77 97 06/09/20 06:28 80 18 144/95 94 L 06/09/20 04:41 98.7 F 100 18 144/95 93 L Intake and Output 06/09/20 06/09/20 06/09/20 06:59 14:59 22:59 Other: Voiding Method Diaper # Voids 1 Weight 90.718 kg 90.718 kg GENERAL EXAM: Alert, pleasant 75-year-old gentleman, on 3 L nasal cannula, comfortable in no apparent distress. HEAD: Normocephalic. EYES: Normal reaction of pupils, equal size. NOSE: Clear with pink turbinates. THROAT: No erythema or exudates. NECK: No masses, no JVD. CHEST: No chest wall deformity. LUNGS: Equal air entry with bilateral scattered rhonchi CVS: S1 and S2 normal with no audible murmur, regular rhythm. ABDOMEN: No hepatosplenomegaly, normal bowel sounds, no guarding or rigidity. SPINE: No scoliosis or deformity SKIN: No rashes CENTRAL NERVOUS SYSTEM: No focal deficits, tone is normal in all 4 extremities. EXTREMITIES: There is no peripheral edema. No clubbing, no cyanosis. Peripheral pulses are intact. Results - Laboratory Findings CBC and BMP: 06/09/20 05:03 06/09/20 05:03 PT/INR, D-dimer PT 11.3 sec (9.0-12.0) 06/09/20 05:03 INR 1.1 (<1.2) 06/09/20 05:03 D-Dimer 1.00 mg/L FEU (<0.60) H 06/09/20 05:03 Abnormal lab findings: Abnormal Labs 06/09/20 06/09/20 06/09/20 05:03 05:03 05:03 WBC 11.1 H Neutrophils # 9.9 H Lymphocytes # 0.2 L D-Dimer 1.00 H Potassium 5.5 H BUN 63 H Creatinine 2.38 H Glucose 120 H Magnesium 3.1 H Ferritin 1248.6 H AST 60 H Lactate Dehydrogenase 1173 H C-Reactive Protein 67.6 H Total Protein 8.8 H - Diagnostic Findings Chest x-ray: image reviewed Assessment and Plan Assessment: 1 Acute hypoxic respiratory failure secondary to CoVID 19 pneumonia 2 Elevated inflammatory markers secondary to above 3 History of dementia 4 History of CVA/TIA 5 Gastroesophageal reflux disease 6 Hyperlipidemia 7 Hypertension Plan: The patient was seen and evaluated by Dr. Angulo Chest x-ray, VQ scan and labs reviewed Continue Decadron for a total of 10 days Lovenox for DVT prophylaxis Continue saline at 75 ML's per hour Titrate down the FiO2 as tolerated Code status to be addressed We will continue to follow and make further recommendations based on his clinical status I, the cosigning physician, performed a history & physical examination of the patient. Lungs sounds with bilateral scattered rhonchi. Maintaining good O2 saturations in the 90s on 2 L/m per nasal cannula. I discussed the assessment and plan of care with my nurse practitioner, Linh Mahan. I attest to the above consultation as dictated by her. Time with Patient: Greater than 30
[2020-06-09] MEDS: dexAMETHasone 2 MG TAB PO SCH (15:41)
[2020-06-09] MEDS: PANTOPRAZOLE 40 MG TABLET PO SCH (15:42)
[2020-06-09] MEDS: HEPARIN SODIUM,PORCINE 5,000 UNIT/ML 1 ML VIAL SQ SCH (15:42)
[2020-06-09] MEDS: ASCORBIC ACID 500 MG TAB PO SCH (15:42)
[2020-06-09] MEDS: polyethylene glycoL 3350 17 GM POWD.PACK PO SCH (15:42)
--- NOTE | 2020-06-09 15:45 | HP ---
HISTORY AND PHYSICAL DATE OF SERVICE: 06/09/2020 CHIEF COMPLAINT: Shortness of breath. HISTORY OF PRESENT ILLNESS: This 75-year-old gentleman with a past medical history of multiple medical problems including CVA, TIA, dementia, GERD, hypertension, hyperlipidemia, history of CAD, CABG, stent being followed by Dr. Oliver. He is a resident of [facility]. Apparently the patient tested positive for COVID on 05/30 and the patient was complaining of progressive shortness of breath and cough and the patient taken to [facility] and admitted for further evaluation and treatment. Patient is actually minimally communicative, unable to give coherent history, most of the history taken by my discussion with staff and also reviewed the notes. The chest x-ray showed bilateral COVID pneumonia. Patient admitted for further evaluation and treatment. Patient also had acute renal failure with creatinine 2.38 and hyperkalemia with potassium 5.5. There is no history of any trauma at this time. PAST MEDICAL HISTORY: History of CVA, TIA, dementia, GERD, hypertension, hyperlipidemia, history of CAD, CABG, stent. MEDICATIONS: Medications prior to admission include: 1. Trazodone. 2. MiraLAX. 3. Norvasc. 4. Demadex. 5. Aldactone. 6. KCl. 7. Protonix. 8. Milk of magnesia. 9. Mylanta. 10.Ativan. 11.Magnolia. 12.Aricept. 13.Vitamin D3. 14.Lipitor. 15.Ecotrin. 16.Artificial Tears. 17.Tylenol. ALLERGIES: CAT DANDER. FAMILY HISTORY, SOCIAL HISTORY AND REVIEW OF SYSTEMS: Could not be taken because of the patient's change in mental status. Per chart no history of smoking. Occasional alcohol intake. PHYSICAL EXAMINATION: The patient is conscious, oriented, nonverbal. Pulse 95, blood pressure 129/81, respiration 18, temperature 98 degrees, pulse ox 94% on 4 L. HEENT: Conjunctivae normal. Oral mucosa moist. NECK: No jugular venous distention. No carotid bruit. No lymph node enlargement. CARDIOVASCULAR: S1, S2 muffled. RESPIRATORY: Breath sounds diminished at the bases. Bilateral scattered rhonchi and crackles. ABDOMEN: Soft, nontender. LEGS: No edema, no swelling. NERVOUS SYSTEM: Higher functions as mentioned earlier. Moves all 4 limbs. Diffusely weak. LYMPHATICS: No lymphadenopathy of the neck, axillae or groin. SKIN: No ulcer, rash or bleeding. JOINTS: No active deforming arthropathy. LABS: Labs are at this time shows WBC 11.1, hemoglobin 16, and D-dimer is 1, potassium 5.5 creatinine is 2.38. Other labs are reviewed. Chest x-ray personally reviewed, bilateral pneumonia mostly in the lower lobes. ASSESSMENT: 1. Acute COVID-19 infection as well as bilateral viral interstitial COVID-19 pneumonia. 2. Increased WBC. 3. Elevated D-dimer with no evidence of pulmonary embolism with low probability of V/Q scan. 4. Acute renal failure, possible acute tubular necrosis, prerenal renal factors. 5. Hyperkalemia secondary to renal failure. 6. Elevated ferritin. 7. Elevated AST. 8. Elevated LDH. 9. Elevated CRP. 10.History of cerebrovascular accident, transient ischemic attack. 11.Dementia. 12.Gastroesophageal reflux disease. 13.Hypertension. 14.Hyperlipidemia. 15.History of vascular dementia. 16.History of degenerative joint disease. 17.History of coronary artery disease, coronary artery bypass grafting, stent. 18.History of anxiety. 19.FULL CODE. RECOMMENDATIONS AND DISCUSSION: This 75-year-old gentleman presented with multiple complex medical issues, at this time I recommend to continue current medications, continue with symptomatic treatment. Otherwise, I would recommend cautious IV fluids. Hold nephrotoxic medications. Bronchodilators. Symptomatic treatment for the COVID including zinc and dexamethasone. Infectious disease evaluation for possible consideration of remdesivir. Pulmonary consultation. Overall prognosis extremely guarded because of multiple complex medical issues. Further recommendations to follow. A copy of dictation forwarded to Dr. Oliver, who is the primary physician. MMODL / IJN: [id number] /
[2020-06-09] MEDS: SODIUM CHLORIDE 0.9% 1,000 ML IV SCH (15:48)
--- NOTE | 2020-06-09 16:08 | CONS ---
CONSULTATION This is a 75-year-old male who was admitted to the hospital from [facility]. Apparently patient is COVID positive. I believe this is prior to his admission. He is a poor historian. Blood pressure post admission has been around 124 to 129 mmHg systolic. Serum creatinine was 2.38 on 06/09/2020. Previous creatinine was 1.59 in 2019. The patient is currently incontinent and is wearing a diaper. Urine output is not charted. He has just come up from the ER. PAST MEDICAL HISTORY: CKD stage 3, hypertension, gastroesophageal reflux disease, history of TIA, hyperlipidemia. PAST SURGICAL HISTORY: None reported. SOCIAL HISTORY: Negative for smoking, drug abuse or alcohol abuse. MEDICATIONS: Medications prior to admission is a long list. Please see the list. No AMI inhibitors or NSAIDs. Patient was on Demadex and Aldactone. REVIEW OF SYSTEMS: As per HPI, other systems apparently negative. PHYSICAL EXAMINATION: Blood pressure was 129/81, heart rate 95 per minute. Patient is afebrile. Examination of the leg shows no significant edema. Abdomen is soft, nontender. Heart and lungs are not examined as patient is COVID positive. INSTRUMENTATION MANAGER exam shows patient has been moving his extremities. Detailed INSTRUMENTATION MANAGER exam is not performed. LABS: Labs show sodium 144, potassium 5.5, chloride 103, CO2 is 30. BUN 63, serum creatinine 2.38. Hemoglobin of 16, white cell count 11.1. ASSESSMENT: 1. Acute kidney injury, most likely prerenal, currently maintained on IV fluids which I will continue. 2. Hyperkalemia associated with acute kidney injury. Hold off on potassium and Demadex. I will also discontinue the Aldactone. Expect improvement and potassium with improving renal function. I would avoid Kayexalate at this time. Monitor urine output and rule out urine retention. 3. Chronic kidney disease stage 3. Previous creatinine 1.5 in 2019. Check urinalysis. 4. Hypermagnesemia associated with acute kidney injury. Discontinue milk of magnesia. 5. Hypertension currently controlled. Hold Norvasc for systolic blood pressure less than 105. PLAN: Agree with discontinuation of Motrin. I will also hold off on the Aldactone. Check postvoid residual. Check urinalysis. Repeat labs in a.m. Continue IV fluids. Discontinue milk of magnesia as well. Thank you for this consultation. Will continue to follow the patient with you during his hospitalization. MMODL / IJN: [id number] /
[2020-06-09 16:13] LABS: Appearance,Urine Clear (Clear); Bilirubin,Urine Negative (Negative); Blood,Urine Small (Negative); Color,Urine Yellow; Glucose,Urine (UA) Negative (Negative); Ketones,Urine Negative (Negative); Leukocyte Esterase,Urine Negative (Negative); Nitrite,Urine Negative (Negative); PH, Urine 6.5 (5.0-8.0); Protein,Urine 1+ (Negative); RBC,Urine 7 /hpf (0-5); Specific Gravity,Urine 1.014 (1.001-1.035); Squamous Epithelial Cell,Urine 2 /hpf (0-4); Urobilinogen,Urine <2.0 mg/dL (<2.0); WBC,Urine 1 /hpf (0-5)
[2020-06-09 17:04] LABS: Glucose,Whole Blood 107 mg/dL (75-99)
[2020-06-09] MEDS: INSULIN ASPART (NovoLOG) 100 UNIT/ML VIAL SQ SCH ×2 (17:34→21:44)
--- NOTE | 2020-06-09 18:16 | CT ---
EXAMINATION TYPE: CT chest wo con DATE OF EXAM: 06/09/2020 COMPARISON: None HISTORY: patient poor historian. Short of breath. CT DLP: 490.3 mGycm Automated exposure control for dose reduction was used. Images obtained from the thoracic inlet to the diaphragm with no contrast. There is coarse interstitial infiltrate and subsegmental atelectasis in the posterior lung silva. Up per lung silva are relatively clear. There is no mediastinal adenopathy. Thoracic aorta is atheromat ous. There are no hilar masses. Heart size is fairly normal. There is coronary artery calcification. There is previous cardiac surgery. There is no pleural effusion. Upper abdominal soft tissues appear intact. There is 20% anterior wedging of T4 vertebra that is probably old. IMPRESSION: Coarse infiltrates in atelectasis in the posterior lung silva consistent with inflammatory disease. No suspicious pulmonary mass. Atherosclerotic vascular disease. Old mild T4 compression fracture.
[2020-06-09 20:22] LABS: Glucose,Whole Blood 124 mg/dL (75-99)
[2020-06-09] MEDS: traZODone HCL 50 MG TAB PO SCH (21:42)
[2020-06-09] MEDS: ASPIRIN 81 MG PO SCH (21:43)
[2020-06-09] MEDS: ATORVASTATIN 20 MG TAB PO SCH (21:43)
[2020-06-09] MEDS: DONEPEZIL 5 MG TAB PO SCH (21:46)
[2020-06-10] MEDS: LORazepam 0.5 MG TAB PO SCH ×3 (00:34→16:07)
[2020-06-10] MEDS: HEPARIN SODIUM,PORCINE 5,000 UNIT/ML 1 ML VIAL SQ SCH ×3 (00:34→16:06)
--- NOTE | 2020-06-10 01:27 | CONS ---
CONSULTATION DATE OF SERVICE: 06/09/2020 REASON FOR CONSULTATION: Covid 19 pneumonia. HISTORY OF PRESENT ILLNESS: The patient is a 75-year-old male who is currently a resident of [facility]. The patient has been sent to the ER at [facility] this morning for evaluation of increasing shortness of breath in this patient apparently started getting sick on May 31 and has been tested June 04, 2020 came back positive for COVID- 19. The patient has been initially managed at the intermediate however with worsening hypoxemia, the patient has been sent to the [facility] ER for further evaluation. On arrival to the ER, patient sating 93% is documented. Is currently 90% on 3 L nasal cannula. No fever has been reported. The patient did have a white count 11.1 with mild lymphopenia. D-dimer was 1.0, creatinine is 2.38. Ferritin was 1248 and LDH was 1173. UA has been negative. The patient did have a chest x-ray, patchy retrocardiac culture which may represent aspiration or infection. CT of the chest shows coarse infiltrate in the posterior lung silva consistent with inflammatory disease. The patient has been started on dexamethasone, Lovenox. Infectious Disease was consulted for further management of antibiotic therapy. Most of the information has been obtained from review of the chart as the patient himself is not a very good historian and unable to provide reliable history. REVIEW OF SYMPTOMS: Review of systems could not be obtained. The positive points have been mentioned in HPI. PAST MEDICAL HISTORY: CVA, TIA, gastroesophageal reflux disease, hypertension, hyperlipidemia. PAST SURGICAL HISTORY: No major surgery reported. SOCIAL HISTORY: No history of smoking. No drinking. No drug use. Currently a intermediate resident. ALLERGIES: CAT DANDER. No known drug allergies. MEDICATIONS: The patient is currently on Desyrel, IV fluid, he is on MiraLAX, Protonix, Narcan, Ativan, NovoLog, heparin 5000 q8, dexamethasone 6 mg p.o. daily, Ascorbic acid, Maalox and [place]. PHYSICAL EXAMINATION: Blood pressure 126/74 with a pulse of 85, temperature 98.2. She is 93% on 3 L nasal cannula. General description is an elderly male lying in bed in no distress. No tachypnea or accessory muscles of respiration use. HEENT: Examination shows no pallor or scleral icterus. Oral mucosal membranes dry. Neck: Trachea central. No thyromegaly. Lungs unlabored breathing, decreased intensity in breath sounds. No wheeze. Heart S1, S2. Regular rate. ABDOMEN: Soft, no tenderness. No rigidity. Extremities: No edema of the feet. Skin examination: No rash or mass palpable. Neurological: The patient is awake, alert, oriented x1 wound. Mood and affect normal. LABS: Hemoglobin 16, white count 11.1, BUN of 63, creatinine 2.38, with elevated inflammatory markers. CT report mentioned above. DIAGNOSTIC IMPRESSION AND PLAN: Patient admitted to the hospital with hypoxemia, source likely acute COVID-19 pneumonia in this patient unfortunately, presented to the hospital day 9 of his symptoms started and also have renal insufficiency with a creatinine clearance around 30. Both of these factors will devoid us from use of Remdesivir to help this patient. PLAN: 1. The patient is currently covered with dexamethasone, heparin, ascorbic acid, to continue. 2. Droplet isolation/social support. 3. We will follow on his clinical condition to further adjust medication if needed. Thank you for this consultation. Will follow this patient along with you. MMODL / IJN: [id number] /
[2020-06-10] MEDS: SODIUM CHLORIDE 0.9% 1,000 ML IV SCH ×2 (05:24→16:08)
[2020-06-10 06:32] LABS: Basophils % (A) 0 %; Eosinophils % (A) 0 %; HCT 44.7 % (39.0-53.0); Lymphocytes # (A) 0.3 k/uL (1.0-4.8); Lymphocytes % (A) 6 %; MCH 31.6 pg (25.0-35.0); MCHC 33.5 g/dL (31.0-37.0); MCV 94.3 fL (80.0-100.0); Mean Platelet Volume 8.7; Monocytes # (A) 0.3 k/uL (0-1.0); Monocytes % (A) 7 %; Neutrophils # (A) 4.3 k/uL (1.3-7.7); Neutrophils % (A) 86 %; Platelet Count 200 k/uL (150-450); RBC 4.74 m/uL (4.30-5.90); RDW 13.8 % (11.5-15.5)
[2020-06-10 07:06] LABS: Glucose,Whole Blood 111 mg/dL (75-99)
[2020-06-10] MEDS: INSULIN ASPART (NovoLOG) 100 UNIT/ML VIAL SQ SCH ×4 (07:11→21:03)
[2020-06-10] MEDS: HYDROcodone/APAP 5-325MG 1 EACH TAB PO SCH ×3 (08:16→17:57)
[2020-06-10] MEDS: CHOLECALCIFEROL 1,000 UNIT TAB PO SCH (08:17)
[2020-06-10] MEDS: ASCORBIC ACID 500 MG TAB PO SCH (08:17)
[2020-06-10] MEDS: amLODIPine 10 MG TAB PO SCH (08:17)
[2020-06-10] MEDS: dexAMETHasone 2 MG TAB PO SCH (08:17)
--- NOTE | 2020-06-10 08:37 | XR ---
EXAMINATION TYPE: XR chest 1V portable DATE OF EXAM: 06/10/2020 COMPARISON: Prior chest x-ray 06/09/2020 HISTORY: Covid positive, abnormal chest x-ray, question CHF TECHNIQUE: Single frontal view of the chest is obtained. FINDINGS: Patient is post median sternotomy. There is no evident pneumothorax or pleural effusion. H eart size is upper limit of normal. Patchy basilar density noted. IMPRESSION: Correlate for lower lobe pneumonia.
[2020-06-10] MEDS: ZINC SULFATE 220 MG CAP PO SCH (09:19)
[2020-06-10] MEDS ORDERED: ONDANSETRON 4 MG/2 ML VIAL IVP PRN (11:02)
--- NOTE | 2020-06-10 11:17 | P.CRDCN ---
History of Present Illness Consult date: 06/10/20 History of present illness: CHIEF COMPLAINT: Elevated troponins HISTORY OF PRESENT ILLNESS: This is a 75-year-old male with a past medical history significant for hypertension, hyperlipidemia, GERD, CVA, and dementia. We have been asked to see the patient in consultation for abnormal troponin. The patient is currently admitted to the hospital secondary to Covid 19. Per nursing, the patient is confused. He denies any chest pain or pressure. He is on 3 L nasal cannula with oxygen saturations greater than 92%. Blood pressure 133/81. Heart rate in the 70s. DIAGNOSTICS: EKG reveals sinus rhythm with no evidence of acute ischemia Chest xray lower lobe pneumonia Laboratory data: WBC 5.0. Hemoglobin 15.0. Platelet count 200. D-dimer 0.68. Sodium 144. Potassium 5.5. BUN 63. Creatinine 2.38. Troponin 0.042. BNP 775. Current home cardiac medications include Norvasc 10 mg daily, Aldactone 25 mg daily, Lipitor 20 mg daily, aspirin 81 mg daily VQ scan: Negative for pulmonary emboli REVIEW OF SYSTEMS: Thorough review of systems not completed secondary to limited eval uation/examination and due to Covid19 PHYSICAL EXAM: Thorough physical exam not completed secondary to limited evaluation/examination and due to Covid19 ASSESSMENT: Covid 19 pneumonia Acute hypoxic respiratory failure Abnormal troponin, secondary to Covid 19 Hypertension Hyperlipidemia History of CVA/TIA GERD Dementia PLAN: An acute coronary event has been ruled out No further troponins are necessary. Mild troponin abnormality common with Covid 19. Continue current cardiac medications Obtain 2-D echo to assess cardiac structure and function We will follow on an as-needed basis. Please call with questions or concerns. Nurse practitioner note has been reviewed by physician. Signing provider agrees with the documented findings, assessment, and plan of care. Past Medical History Past Medical History: CVA/TIA, Dementia, GERD/Reflux, Hyperlipidemia, Hypertens ion Additional Past Medical History / Comment(s): Per [facility] pt had +rapid covid test on 06/01/20 and + covid throat swab on 06/03/20. Other hx: Vascular dementia, TIA, chronic pain bilateral knees and back, unsteady gait, muscle weakness, falls, bilateral leg edema, anemia History of Any Multi-Drug Resistant Organisms: None Reported Past Surgical History: Coronary Bypass/CABG, Heart Catheterization, Heart Catheterization With Stent Additional Past Surgical History / Comment(s): Salo believes pt has 1-2 vessel CABG approximately 8-10 yrs ago in [place] and has had PCI/stent but salo does not know date. Past Anesthesia/Blood Transfusion Reactions: No Reported Reaction Date of Last Stent Placement:: unkn Smoking Status: Never smoker - Past Family History Father History Unknown: Yes Mother History Unknown: Yes Medications and Allergies Home Medications Medication Instructions Recorded Confirmed Type Atorvastatin [Lipitor] 20 mg PO HS 02/15/18 06/09/20 History Pantoprazole Sodium [Protonix] 40 mg PO AC-SUPPER 02/15/18 06/09/20 History Albuterol Sulfate [Proair 2 puff INHALATION RT-Q4H PRN 03/26/19 06/09/20 History Respiclick] Artificial Tears-Hypromellose 2 drops BOTH EYES Q8H PRN 03/26/19 06/09/20 History [Artificial Tear Drops] Aspirin EC [Ecotrin Low Dose] 81 mg PO HS 03/26/19 06/09/20 History Donepezil [Aricept] 2.5 mg PO HS 03/26/19 06/09/20 History HYDROcodone/APAP 5-325MG [[place] 1 tab PO Q8H PRN 03/26/19 06/09/20 History 5-325] HYDROcodone/APAP 5-325MG [[place] 1 tab PO TID@0700,1300,1900 03/26/19 06/09/20 History 5-325] LORazepam [Ativan] 0.5 mg PO TID@0000,0700,1600 03/26/19 06/09/20 History LORazepam [Ativan] 1 mg PO DAILY@1700 03/26/19 06/09/20 History Magnesium Hydroxide [Milk of 2,400 mg PO Q72H PRN 03/26/19 06/09/20 History Magnesia] Potassium Chloride 8 meq PO BID 03/26/19 06/09/20 History Torsemide [Demadex] 40 mg PO DIRECTED 03/26/19 06/09/20 History amLODIPine [Norvasc] 10 mg PO DAILY 03/26/19 06/09/20 History polyethylene glycoL 3350 [Miralax] 17 gram PO DAILY@1600 03/26/19 06/09/20 History Acetaminophen Tab [Tylenol] 650 mg PO Q6H PRN 06/09/20 06/09/20 History Cholecalciferol [Vitamin D3 (25 3,000 unit PO DAILY 06/09/20 06/09/20 History Mcg = 1000 Iu)] Mag Hydrox/Aluminum Hyd/Simeth 30 ml PO Q6H PRN 06/09/20 06/09/20 History [Mylanta Maximum Strength Liq] Spironolactone [Aldactone] 25 mg PO DAILY 06/09/20 06/09/20 History traZODone HCL 150 mg PO HS@199906/09/20 06/09/20 History Allergies Allergy/AdvReac Type Severity Reaction Status Date / Time cat dander Allergy Dyspnea Verified 03/26/19 16:11 Physical Exam Vitals: Vital Signs Temp Pulse Resp BP Pulse Ox 06/10/20 10:00 97.5 F L 86 21 153/79 92 L 06/10/20 05:44 98.2 F 78 18 133/81 93 L 06/10/20 02:00 98.0 F 76 17 135/84 95 06/09/20 22:07 98.2 F 85 18 157/92 93 L 06/09/20 20:30 76 17 06/09/20 14:00 98.2 F 85 19 126/74 93 L Intake and Output 06/09/20 06/10/20 06/10/20 22:59 06:59 14:59 Output Total 600 1 Balance -600 -1 Output: Urine 600 Straight 300 Post Void Residual 1 Other: Voiding Method Diaper # Voids 1 1 Results 06/10/20 06:09 06/09/20 05:03 Cardiac Enzymes 06/09/20 Range/Units 15:18 Troponin I 0.042 H* (0.000-0.034) ng/mL CBC 06/10/20 Range/Units 06:09 WBC 5.0 (3.8-10.6) k/uL RBC 4.74 (4.30-5.90) m/uL Hgb 15.0 (13.0-17.5) gm/dL Hct 44.7 (39.0-53.0) % Plt Count 200 (150-450) k/uL Current Medications Generic Name Dose Route Start Last Admin Trade Name Freq PRN Reason Stop Dose Admin Acetaminophen 650 mg 06/09/20 09:32 Acetaminophen Tab 325 Mg Tab PO Q6H PRN Pain/FEVER>101 Hydrocodone Bitart/Acetaminophen 1 each 06/09/20 09:32 Hydrocodone/Apap 5-325mg 1 Each Tab PO Q8H PRN Pain Hydrocodone Bitart/Acetaminophen 1 each 06/09/20 13:00 06/10/20 08:16 Hydrocodone/Apap 5-325mg 1 Each Tab PO 1 each TID@0700,1300,1900 HARSHAL Administration Al Hydroxide/Mg Hydroxide 30 ml 06/09/20 09:32 Mag Hydrox/Al Hydrox/Simeth 30 Ml Cup PO Q6H PRN Indigestion Albuterol Sulfate 2 puff 06/09/20 09:32 Albuterol Hfa Inhaler INHALATION RT-Q4H PRN Shortness Of Breath Amlodipine Besylate 10 mg 06/09/20 09:45 06/10/20 08:17 Amlodipine 10 Mg Tab PO 10 mg DAILY HARSHAL Administration Artificial Tears 2 drops 06/09/20 09:32 Artificial Tears-Hypromellose Drops 15 Ml Btl BOTH EYES Q8H PRN Dry Eye(s) Ascorbic Acid 500 mg 06/09/20 15:00 06/10/20 08:17 Ascorbic Acid 500 Mg Tab PO 500 mg DAILY HARSHAL Administration Aspirin 81 mg 06/09/20 21:00 06/09/20 21:43 Aspirin 81 Mg PO 81 mg HS HARSHAL Administration Atorvastatin Calcium 20 mg 06/09/20 21:00 06/09/20 21:43 Atorvastatin 20 Mg Tab PO 20 mg HS HARSHAL Administration Cholecalciferol 3,000 unit 06/09/20 09:45 06/10/20 08:17 Cholecalciferol 1,000 Unit Tab PO 3,000 unit DAILY HARSHAL Administration Dexamethasone 6 mg 06/09/20 15:00 06/10/20 08:17 Dexamethasone 2 Mg Tab PO 6 mg DAILY HARSHAL Administration Donepezil HCl 2.5 mg 06/09/20 21:00 06/09/20 21:46 Donepezil 5 Mg Tab PO 2.5 mg HS HARSHAL Administration Heparin Sodium (Porcine) 5,000 unit 06/09/20 16:00 06/10/20 08:16 Heparin Sodium,Porcine 5,000 Unit/Ml 1 Ml Vial SQ 5,000 unit Q8HR HARSHAL Administration Sodium Chloride 1,000 mls @ 75 mls/hr 06/09/20 15:00 06/10/20 05:24 Saline 0.9% IV Not Given .[id number] [facility] Insulin Aspart 0 unit 06/09/20 17:30 06/10/20 07:11 Insulin Aspart (Novolog) 100 Unit/Ml Vial SQ Not Given ACHS [facility] Protocol Lorazepam 0.5 mg 06/09/20 16:00 06/10/20 08:17 Lorazepam 0.5 Mg Tab PO 0.5 mg TID@0000,0700,1600 [facility] Administration Lorazepam 1 mg 06/09/20 17:00 06/09/20 14:50 Lorazepam 1 Mg Tab PO Not Given DAILY@1700 [facility] Naloxone HCl 0.2 mg 06/09/20 06:14 Naloxone 0.4 Mg/Ml 1 Ml Vial IV Q2M PRN Opioid Reversal Ondansetron HCl 4 mg 06/10/20 11:02 Ondansetron 4 Mg/2 Ml Vial IVP Q6HR PRN Nausea And Vomiting Pantoprazole Sodium 40 mg 06/09/20 17:30 06/09/20 15:42 Pantoprazole 40 Mg Tablet PO 40 mg AC-SUPPER [facility] Administration Polyethylene Glycol 17 gm 06/09/20 16:00 06/09/20 15:42 Polyethylene Glycol 3350 17 Gm Powd.Pack PO 17 gm DAILY@1600 [facility] Administration Trazodone HCl 150 mg 06/09/20 20:00 06/09/20 21:42 Trazodone Hcl 50 Mg Tab PO 150 mg HS@2000 [facility] Administration Zinc Sulfate 220 mg 06/10/20 09:00 06/10/20 09:19 Zinc Sulfate 220 Mg Cap PO 220 mg DAILY HARSHAL Administration Intake and Output 06/09/20 06/10/20 06/10/20 22:59 06:59 14:59 Output Total 600 1 Balance -600 -1 Output: Urine 600 Straight 300 Post Void Residual 1 Other: Voiding Method Diaper # Voids 1 1 06/10/20 06:09 06/09/20 05:03
[2020-06-10 11:34] LABS: Glucose,Whole Blood 110 mg/dL (75-99)
[2020-06-10 11:43] VITALS: BMI 25.7
--- NOTE | 2020-06-10 12:45 | P.PN ---
Subjective Progress Note Date: 06/10/20 Principal diagnosis: Acute hypoxic respiratory failure secondary to CoVID 19 pneumonia This is a 75-year-old male patient with a history of previous CVA/TIA, gastroesophageal reflux disease, hyperlipidemia, hypertension, dementia. He was tested positive for CoVID 19 in the outpatient setting he was developing increasing shortness of breath and hypoxemia and seen in the emergency room earlier this morning for the same. Chest x-ray revealed patchy retrocardiac opacity possible aspiration versus infection. White count 11.1. Hemoglobin 16.0. Lymphocytes 0.2. D-dimer 1.00. INR 1.1. Sodium 134. Potassium 5.5. Creatinine 2.38. Ferritin 1248. LDH 1173. C-reactive proteins 67.6. VQ scan revealed low probability for pulmonary embolus. He did receive Lovenox. Init iated on dexamethasone. He is seen today in consultation on the regular medical floor. He is currently awake and alert. Continue O2 saturations in the 90s on 3 L/m per nasal cannula. He is afebrile. Swallow evaluation in progress. The patient is a poor historian. The patient is seen today 06/10/2020 in follow-up on the regular medical floor. He is currently resting in bed. Awake and alert in no acute distress. Maintaining O2 saturations in the 90s on 2 L/m per nasal cannula. He is cur rently afebrile. Blood cultures reveal no growth. White count 5.0. Hemoglobin 15.0. Lymphocytes 0.3. D-dimer 0.68. Glucose 111. He is currently on dexamethasone. Heparin subcutaneous for DVT prophylaxis. Vitamin supplements. Objective - Vital Signs Vital signs: Vital Signs Temp 97.5 F L 06/10/20 10:00 Pulse 86 06/10/20 10:00 Resp 21 06/10/20 10:00 BP 153/79 06/10/20 10:00 Pulse Ox 92 L 06/10/20 10:00 Intake & Output 06/09/20 06/10/20 06/10/20 18:59 06:59 18:59 Output Total 600 1 Balance -600 -1 Weight 90.718 kg 90.718 kg Output: Urine 600 Straight 300 Post Void Residual 1 Other: Voiding Method Diaper Diaper # Voids 1 1 1 - Exam GENERAL EXAM: Alert, pleasant 75-year-old gentleman, on 2 L nasal cannula, c omfortable in no apparent distress. HEAD: Normocephalic. EYES: Normal reaction of pupils, equal size. NOSE: Clear with pink turbinates. THROAT: No erythema or exudates. NECK: No masses, no JVD. CHEST: No chest wall deformity. LUNGS: Equal air entry with bilateral scattered rhonchi CVS: S1 and S2 normal with no audible murmur, regular rhythm. ABDOMEN: No hepatosplenomegaly, normal bowel sounds, no guarding or rigidity. SPINE: No scoliosis or deformity SKIN: No rashes CENTRAL NERVOUS SYSTEM: No focal deficits, tone is normal in all 4 extremities. EXTREMITIES: There is no peripheral edema. No clubbing, no cyanosis. Peripheral pulses are intact. - Labs CBC & Chem 7: 06/10/20 06:09 06/09/20 05:03 Labs: Abnormal Lab Results - Last 24 Hours (Table) 06/09/20 06/09/20 06/09/20 Range/Units 15:18 15:18 15:48 Lymphocytes # (1.0-4.8) k/uL D-Dimer (<0.60) mg/L FEU POC Glucose (mg/dL) (75-99) mg/dL Troponin I 0.042 H* (0.000-0.034) ng/mL Procalcitonin 0.34 H (0.02-0.09) ng/mL Urine Protein 1+ H (Negative) Urine Blood Small H (Negative) Urine RBC 7 H (0-5) /hpf 06/09/20 06/09/20 06/10/20 Range/Units 17:01 20:19 06:09 Lymphocytes # 0.3 L (1.0-4.8) k/uL D-Dimer (<0.60) mg/L FEU POC Glucose (mg/dL) 107 H 124 H (75-99) mg/dL Troponin I (0.000-0.034) ng/mL Procalcitonin (0.02-0.09) ng/mL Urine Protein (Negative) Urine Blood (Negative) Urine RBC (0-5) /hpf 06/10/20 06/10/20 06/10/20 Range/Units 06:09 07:04 11:33 Lymphocytes # (1.0-4.8) k/uL D-Dimer 0.68 H (<0.60) mg/L FEU POC Glucose (mg/dL) 111 H 110 H (75-99) mg/dL Troponin I (0.000-0.034) ng/mL Procalcitonin (0.02-0.09) ng/mL Urine Protein (Negative) Urine Blood (Negative) Urine RBC (0-5) /hpf Microbiology - Last 24 Hours (Table) 06/09/20 05:08 Blood Culture - Preliminary Blood No Growth after 24 hours 06/09/20 05:03 Blood Culture - Preliminary Blood No Growth after 24 hours Assessment and Plan Assessment: 1 Acute hypoxic respiratory failure secondary to CoVID 19 pneumonia 2 Elevated inflammatory markers secondary to above 3 History of dementia 4 History of CVA/TIA 5 Gastroesophageal reflux disease 6 Hyperlipidemia 7 Hypertension Plan: The patient was seen and evaluated by Dr. Kev Blake for a total of 10 days Heparin subcutaneous for DVT prophylaxis Vitamin supplements Titrate down the FiO2 as tolerated Code status to be addressed We will continue to follow and make further recommendations based on his clinical status I, the cosigning physician, performed a history & physical examination of the patient. Lungs sounds with bilateral scattered rhonchi. Maintaining good O2 saturations in the 90s on 2 L/m per nasal cannula. I discussed the assessment and plan of care with my nurse practitioner, Linh Mahan. I attest to the above note as dictated by her.
--- NOTE | 2020-06-10 15:25 | PN ---
PROGRESS NOTE Patient is seen for followup for acute kidney injury. The patient is currently maintained on IV fluids. I do not have any labs from today. Serum creatinine was 2.38 yesterday from a previous creatinine of 1.59 although from 2019. Overnight patient has been voiding. He is wearing a diaper/briefs. He is maintained on IV fluids. This morning, patient denies any significant complaints. PHYSICAL EXAMINATION: Today blood pressure was 153/79, heart rate 86 per minute. Patient is afebrile. ABDOMEN: Soft nontender. Exam of lower extremities shows no evidence of edema. Heart and lungs are not examined secondary to underlying Covid infection. LABS: Not available yet from today. CBC shows hemoglobin 15.0. ASSESSMENT: 1. Acute kidney injury prerenal associated with volume depletion, maintained on IV fluids. No labs available yet from today. The patient was also on nonsteroidal anti-inflammatory agents, which are now discontinued. Underlying Covid infection can also be contributing to the acute kidney injury. 2. Hyperkalemia associated with acute kidney injury, now off Aldactone, potassium supplementation. 3. Chronic kidney disease stage 3 previous creatinine 1.5 in 2019, etiology likely nephrosclerosis. UA shows 1+ protein, small blood is seen. 4. COVID-19 pneumonia, maintained on steroids. 5. Hypertension, currently on Norvasc. PLAN: Check labs today and then again in a.m. Encourage increased oral intake. Continue to avoid nonsteroidal anti-inflammatory agents. MMODL / IJN: [id number] /
[2020-06-10] MEDS: PANTOPRAZOLE 40 MG TABLET PO SCH (16:07)
[2020-06-10] MEDS: polyethylene glycoL 3350 17 GM POWD.PACK PO SCH (16:07)
[2020-06-10 16:51] LABS: Glucose,Whole Blood 114 mg/dL (75-99)
[2020-06-10] MEDS: LORazepam 1 MG TAB PO SCH (17:16)
--- NOTE | 2020-06-10 17:26 | PN ---
PROGRESS NOTE DATE OF SERVICE: 06/10/2020 This 75-year-old gentleman who was admitted with acute COVID-19 infection and bilateral interstitial pneumonia is being closely monitored at this time. The patient is not receiving remdesivir at this time. Multiple consultants are following the patient closely. The most recent chest x-ray, which was done today and reviewed personally by me, showed bilateral lesions, right more than left. Past medical history reviewed. REVIEW OF SYSTEMS: CARDIOVASCULAR SYSTEM: No angina, palpitations. RESPIRATORY SYSTEM: As mentioned earlier. GI: As mentioned earlier. : No dysuria or retention. NERVOUS SYSTEM: No numbness, weakness. CURRENT MEDICATIONS: Reviewed. They include Tylenol, [place], Maalox, Ventolin. Vitamin C, Lipitor. Doses are reviewed. PHYSICAL EXAMINATION: Patient is alert, oriented x2. Pulse 90, blood pressure 163/80, respiration 20, temperature 97.8, pulse ox 98% on 2 L. HEENT: Conjunctivae normal. NECK: No jugular venous distention. CARDIOVASCULAR SYSTEM: S1, S2 muffled. RESPIRATORY SYSTEM: Breath sounds diminished at the bases. Scattered rhonchi and crackles. ABDOMEN: Soft, non-tender. LEGS: No edema. No swelling. NERVOUS SYSTEM: No focal deficit. LABS: D-dimer is 0.68, glucose 111. ASSESSMENT: 1. Acute COVID-19 infection with bilateral interstitial pneumonia, right more than the left, with possible sepsis. 2. Increased white count. 3. Elevated D-dimer with no evidence of pulmonary embolism, with low probability V/Q scan. 4. Acute renal failure, possibly acute tubular necrosis, prerenal factors. 5. Hyperkalemia from renal failure. 6. Elevated ferritin. 7. Increased AST. 8. Increased LDH. 9. Increased CRP. 10.History of cerebrovascular accident, transient ischemic attack. 11.Dementia. 12.Gastroesophageal reflux disease. 13.Hypertension. 14.Hyperlipidemia. 15.History of vascular dementia. 16.History of degenerative joint disease. 17.History of coronary artery disease, coronary artery bypass grafting, stent. 18.History of anxiety. 19.FULL CODE. RECOMMENDATIONS AND DISCUSSION: In this 75-year-old gentleman who presented with multiple complex medical issues, we will monitor the patient closely, continue the current medications, continue symptomatic treatment. Patient is apparently not a candidate for remdesivir because of the at this time. I recommend to continue other consultations and management, including dexamethasone, zinc and heparin. The creatinine was elevated to 0.38. The most recent creatinine is not available at this time. Continue to monitor. Prognosis guarded because of multiple complex medical issues. Further recommendations to follow. MMODL / IJN: [id number] / MTDD
[2020-06-10] MEDS: ASPIRIN 81 MG PO SCH (20:18)
[2020-06-10] MEDS: DONEPEZIL 5 MG TAB PO SCH (20:18)
[2020-06-10] MEDS: traZODone HCL 50 MG TAB PO SCH (20:19)
[2020-06-10] MEDS: ATORVASTATIN 20 MG TAB PO SCH (20:19)
[2020-06-10 20:35] LABS: African American GFR (CKD) 44.4 (60.0-200.0); Albumin 3.9 g/dL (3.80-4.90); Albumin/Globulin Ratio 1.34 (1.60-3.17); C Reactive Protein 6.7 mg/dL (0.0-0.8); Calcium 8.6 mg/dL (8.7-10.3); Globulin 2.9 g/dL (1.6-3.3); Non-African American GFR(CKD) 38.3 (60.0-200.0); Potassium 4.5 mmol/L (3.5-5.5); Total Bilirubin 0.8 mg/dL (0.3-1.2); Total Protein 6.8 g/dL (6.2-8.2)
[2020-06-10 20:55] LABS: Glucose,Whole Blood 108 mg/dL (75-99)
--- NOTE | 2020-06-10 22:38 | PN ---
PROGRESS NOTE DATE OF SERVICE: 06/10/2020 REASON FOR FOLLOWUP: COVID-19 pneumonia. INTERVAL HISTORY: The patient is currently afebrile. The patient is pleasantly confused. He is unable to provide any history. The patient is hemodynamically stable and is currently on room air. No vomiting, diarrhea or any other changes reported by the nursing staff. PHYSICAL EXAMINATION: Blood pressure 158/80 with a pulse of 82, temperature 98. He is 99% on room air. General description is an elderly male lying in bed in no distress. RESPIRATORY SYSTEM: Unlabored breathing with decreased intensity of breath sounds. No wheeze. HEART: S1, S2. Regular rate and rhythm. ABDOMEN: Soft. No tenderness. LABS: Hemoglobin is 15, white count 5.0. BUN of 51, creatinine 1.7. DIAGNOSTIC IMPRESSION AND PLAN: Patient admitted to hospital with acute COVID-19 pneumonia in this patient currently remdesivir. The patient is covered with zinc, vitamin C, dexamethasone, and heparin; to continue along with respiratory support and monitor his clinical course closely. MMODL / IJN: [id number] / MTDD
[2020-06-11] MEDS: SODIUM CHLORIDE 0.9% 1,000 ML IV SCH ×2 (00:15→13:04)
[2020-06-11] MEDS: LORazepam 0.5 MG TAB PO SCH ×4 (01:17→23:24)
[2020-06-11] MEDS: HEPARIN SODIUM,PORCINE 5,000 UNIT/ML 1 ML VIAL SQ SCH ×4 (01:17→23:24)
[2020-06-11 06:43] LABS: Basophils % (A) 0 %; Eosinophils % (A) 0 %; HCT 42.9 % (39.0-53.0); HGB 14.3 gm/dL (13.0-17.5); Lymphocytes # (A) 0.5 k/uL (1.0-4.8); Lymphocytes % (A) 4 %; MCH 31.3 pg (25.0-35.0); MCHC 33.4 g/dL (31.0-37.0); MCV 93.6 fL (80.0-100.0); Mean Platelet Volume 8.5; Monocytes # (A) 0.6 k/uL (0-1.0); Monocytes % (A) 5 %; Neutrophils # (A) 10.5 k/uL (1.3-7.7); Neutrophils % (A) 89 %; Platelet Count 246 k/uL (150-450); RBC 4.59 m/uL (4.30-5.90); RDW 13.7 % (11.5-15.5); WBC 11.7 k/uL (3.8-10.6)
[2020-06-11] MEDS: HYDROcodone/APAP 5-325MG 1 EACH TAB PO SCH ×3 (07:22→19:16)
[2020-06-11] MEDS: amLODIPine 10 MG TAB PO SCH (07:22)
[2020-06-11] MEDS: CHOLECALCIFEROL 1,000 UNIT TAB PO SCH (07:22)
[2020-06-11] MEDS: dexAMETHasone 2 MG TAB PO SCH (07:22)
[2020-06-11] MEDS: ZINC SULFATE 220 MG CAP PO SCH (07:22)
[2020-06-11] MEDS: ASCORBIC ACID 500 MG TAB PO SCH (07:23)
[2020-06-11 07:29] LABS: Glucose,Whole Blood 108 mg/dL (75-99)
[2020-06-11] MEDS: INSULIN ASPART (NovoLOG) 100 UNIT/ML VIAL SQ SCH ×4 (08:42→20:41)
[2020-06-11 09:41] LABS: African American GFR (CKD) 61.4 (60.0-200.0); Anion Gap 9.8 mmol/L (4.00-12.00); C Reactive Protein 2.3 mg/dL (0.0-0.8); Calcium 8.6 mg/dL (8.7-10.3); Carbon Dioxide 19.2 mmol/L (21.6-31.8); Potassium 4.9 mmol/L (3.5-5.5)
[2020-06-11 12:21] LABS: Glucose,Whole Blood 111 mg/dL (75-99)
--- NOTE | 2020-06-11 12:42 | P.PN ---
Subjective Progress Note Date: 06/11/20 Principal diagnosis: Acute hypoxic respiratory failure secondary to CoVID 19 pneumonia This is a 75-year-old male patient with a history of previous CVA/TIA, gastroesophageal reflux disease, hyperlipidemia, hypertension, dementia. He was tested positive for CoVID 19 in the outpatient setting he was developing increasing shortness of breath and hypoxemia and seen in the emergency room earlier this morning for the same. Chest x-ray revealed patchy retrocardiac opacity possible aspiration versus infection. White count 11.1. Hemoglobin 16.0. Lymphocytes 0.2. D-dimer 1.00. INR 1.1. Sodium 134. Potassium 5.5. Creatinine 2.38. Ferritin 1248. LDH 1173. C-reactive proteins 67.6. VQ scan revealed low probability for pulmonary embolus. He did receive Lovenox. Init iated on dexamethasone. He is seen today in consultation on the regular medical floor. He is currently awake and alert. Continue O2 saturations in the 90s on 3 L/m per nasal cannula. He is afebrile. Swallow evaluation in progress. The patient is a poor historian. The patient is seen today 06/10/2020 in follow-up on the regular medical floor. He is currently resting in bed. Awake and alert in no acute distress. Maintaining O2 saturations in the 90s on 2 L/m per nasal cannula. He is cur rently afebrile. Blood cultures reveal no growth. White count 5.0. Hemoglobin 15.0. Lymphocytes 0.3. D-dimer 0.68. Glucose 111. He is currently on dexamethasone. Heparin subcutaneous for DVT prophylaxis. Vitamin supplements. The patient is seen today 06/11/2019 in follow-up on the regular medical floor. He is awake and alert. Resting comfortably in bed. Currently maintaining O2 saturations in the low 90s on room air. Afebrile. Hemodynamically stable. White count 11.7. Hemoglobin 14.3. Lymphocytes 0.5. D-dimer 0.7. Sodium 140. Potassium 4.9. Creatinine 1.3. Protein 2.3. He remains on dexamethasone, Heparin subcutaneous for DVT prophylaxis. Vitamin supplements. Objective - Vital Signs Vital signs: Vital Signs Temp 97.9 F 06/11/20 05:30 Pulse 77 06/11/20 05:30 Resp 20 06/11/20 05:30 BP 166/77 06/11/20 05:30 Pulse Ox 90 L 06/11/20 05:30 Intake & Output 06/10/20 06/11/20 06/11/20 18:59 06:59 18:59 Intake Total 600 100 Output Total 123 Balance 477 100 Weight 90.718 kg Intake: IV 600 Sodium Chloride 0.9% 1, 600 000 ml @ 75 mls/hr IV . [id number] HARSHAL Rx#:[id number] Oral 100 Output: Post Void Residual 123 Other: Voiding Method Diaper Diaper Incontinent Incontinent # Voids 1 2 - Exam GENERAL EXAM: Alert, pleasant 75-year-old gentleman, on room air, comfortable in no apparent distress. HEAD: Normocephalic. EYES: Normal reaction of pupils, equal size. NOSE: Clear with pink turbinates. THROAT: No erythema or exudates. NECK: No masses, no JVD. CHEST: No chest wall deformity. LUNGS: Equal air entry with bilateral scattered rhonchi CVS: S1 and S2 normal with no audible murmur, regular rhythm. ABDOMEN: No hepatosplenomegaly, normal bowel sounds, no guarding or rigidity. SPINE: No scoliosis or deformity SKIN: No rashes CENTRAL NERVOUS SYSTEM: No focal deficits, tone is normal in all 4 extremities. EXTREMITIES: There is no peripheral edema. No clubbing, no cyanosis. Peripheral pulses are intact. - Labs CBC & Chem 7: 06/11/20 06:28 06/11/20 06:28 Labs: Abnormal Lab Results - Last 24 Hours (Table) 06/10/20 06/10/20 06/10/20 Range/Units 06:09 16:48 20:43 WBC (3.8-10.6) k/uL Neutrophils # (1.3-7.7) k/uL Lymphocytes # (1.0-4.8) k/uL D-Dimer (<0.60) mg/L FEU Sodium 146 H (135-145) mmol/L Chloride 111 H (96-109) mmol/L Carbon Dioxide (21.6-31.8) mmol/L BUN 51.0 H (9.0-27.0) mg/dL Creatinine 1.7 H (0.6-1.5) mg/dL Est GFR (CKD-EPI)AfAm 44.4 L (60.0-200.0) Est GFR (CKD-EPI)NonAf 38.3 L (60.0-200.0) BUN/Creatinine Ratio 30.00 H (12.00-20.00) Ratio Glucose 125 H (70-110) mg/dL POC Glucose (mg/dL) 114 H 108 H (75-99) mg/dL Calcium 8.6 L (8.7-10.3) mg/dL C-Reactive Protein 6.7 H (0.0-0.8) mg/dL Albumin/Globulin Ratio 1.34 L (1.60-3.17) g/dL 06/11/20 06/11/20 06/11/20 Range/Units 06:28 06:28 06:28 WBC 11.7 H (3.8-10.6) k/uL Neutrophils # 10.5 H (1.3-7.7) k/uL Lymphocytes # 0.5 L (1.0-4.8) k/uL D-Dimer 0.70 H (<0.60) mg/L FEU Sodium (135-145) mmol/L Chloride 111 H (96-109) mmol/L Carbon Dioxide 19.2 L (21.6-31.8) mmol/L BUN 39.0 H (9.0-27.0) mg/dL Creatinine (0.6-1.5) mg/dL Est GFR (CKD-EPI)AfAm (60.0-200.0) Est GFR (CKD-EPI)NonAf 53.0 L (60.0-200.0) BUN/Creatinine Ratio 30.00 H (12.00-20.00) Ratio Glucose (70-110) mg/dL POC Glucose (mg/dL) (75-99) mg/dL Calcium 8.6 L (8.7-10.3) mg/dL C-Reactive Protein 2.3 H (0.0-0.8) mg/dL Albumin/Globulin Ratio (1.60-3.17) g/dL 06/11/20 06/11/20 Range/Units 07:26 12:18 WBC (3.8-10.6) k/uL Neutrophils # (1.3-7.7) k/uL Lymphocytes # (1.0-4.8) k/uL D-Dimer (<0.60) mg/L FEU Sodium (135-145) mmol/L Chloride (96-109) mmol/L Carbon Dioxide (21.6-31.8) mmol/L BUN (9.0-27.0) mg/dL Creatinine (0.6-1.5) mg/dL Est GFR (CKD-EPI)AfAm (60.0-200.0) Est GFR (CKD-EPI)NonAf (60.0-200.0) BUN/Creatinine Ratio (12.00-20.00) Ratio Glucose (70-110) mg/dL POC Glucose (mg/dL) 108 H 111 H (75-99) mg/dL Calcium (8.7-10.3) mg/dL C-Reactive Protein (0.0-0.8) mg/dL Albumin/Globulin Ratio (1.60-3.17) g/dL Microbiology - Last 24 Hours (Table) 06/09/20 05:08 Blood Culture - Preliminary Blood No Growth after 48 hours 06/09/20 05:03 Blood Culture - Preliminary Blood No Growth after 48 hours Assessment and Plan Assessment: 1 Acute hypoxic respiratory failure secondary to CoVID 19 pneumonia 2 Elevated inflammatory markers secondary to above 3 History of dementia 4 History of CVA/TIA 5 Gastroesophageal reflux disease 6 Hyperlipidemia 7 Hypertension Plan: The patient was seen and evaluated by Dr. Kev Blake for a total of 10 days Heparin subcutaneous for DVT prophylaxis Vitamin supplements Repeat chest x-ray in a.m. We will continue to follow and make further recommendations based on his clinical status I, the cosigning physician, performed a history & physical examination of the patient. Lungs sounds with bilateral scattered rhonchi. Maintaining good O2 saturations in the 90s on room air. I discussed the assessment and plan of care with my nurse practitioner, Linh Mahan. I attest to the above note as dictated by her.
[2020-06-11] MEDS: polyethylene glycoL 3350 17 GM POWD.PACK PO SCH (15:01)
--- NOTE | 2020-06-11 16:21 | PN ---
PROGRESS NOTE Patient is seen for followup for acute kidney injury. He is currently lying in bed. Patient has underlying COVID-19 pneumonia. His renal function has improved with creatinine going down to 1.3 from 2.38 on initial admission. The patient is maintained on IV fluids. PHYSICAL EXAMINATION: On examination today, blood pressure is 134/63, heart rate 82 per minute, he is afebrile. Examination of the lower extremities shows no significant edema. Abdomen is soft, nontender. G[employer]OLINE CATALYST OPERATOR exam grossly intact. Heart and lungs not examined due to COVID pneumonia. GASOLINE CATALYST OPERATOR exam is grossly intact. LABS: Show sodium 140, potassium 4.9, chloride 111. CO2 is 19.2, BUN 39, creatinine 1.3, hemoglobin of 14.3 g/dL. ASSESSMENT: 1. Acute kidney injury, prerenal, currently improving. The patient is maintained on IV fluids. 2. COVID-19 pneumonia, fairly stable, maintained on steroids. 3. Hypertension, blood pressure is slightly on the high side secondary to steroids. The patient is maintained on Norvasc. 4. Hyperkalemia associated with acute kidney injury, currently off Aldactone and potassium supplementation. 5. Chronic kidney disease stage 3. Previous creatinine 1.5 in 2019. UA shows 1+ protein, small blood is seen. Etiology is likely nephrosclerosis. UA will be repeated down the road. Previous UA showed no protein in 2019. PLAN: Continue IV fluids. Continue to encourage increased oral intake. Repeat labs in a.m. MMODL / IJN: [id number] /
--- NOTE | 2020-06-11 17:21 | PN ---
PROGRESS NOTE DATE OF SERVICE: 06/11/2020 REASON FOR FOLLOWUP: COVID-19 pneumonia. INTERVAL HISTORY: Patient is currently afebrile. The patient seemed to be slightly more awake and alert today. He is breathing comfortably on room air, not a very good historian. No vomiting or diarrhea has been reported. PHYSICAL EXAMINATION: Blood pressure is 166/77, pulse of 77, temperature 97.9, 92% on room air. General description is an elderly male lying in bed in no distress. Respiratory system: Unlabored breathing with decreased breath sounds at bases, no wheeze. Heart S1, S2. Regular rate and rhythm. Abdomen is soft, no tenderness. LABS: Hemoglobin 14.8, white count 11.7, BUN of 39, creatinine 1.3. Blood culture has been negative. DIAGNOSTIC IMPRESSION AND PLAN: Patient with acute COVID-19 infection, mild pneumonia. Patient clinically responded to the dexamethasone, Lovenox and zinc to continue along with respiratory support and monitor clinical course closely. MMODL / IJN: [id number] /
[2020-06-11 17:35] LABS: Glucose,Whole Blood 121 mg/dL (75-99)
[2020-06-11] MEDS: PANTOPRAZOLE 40 MG TABLET PO SCH (17:51)
[2020-06-11] MEDS: LORazepam 1 MG TAB PO SCH (17:51)
--- NOTE | 2020-06-11 18:42 | PN ---
PROGRESS NOTE DATE OF SERVICE: 06/11/2020 This 75-year-old gentleman admitted with acute COVID-19 infection and as well as bilateral pneumonia, continues to be confused. The patient also had multiple medical issues, including renal failure, as well. The patient is being treated symptomatically at this point. Multiple consultants following the patient closely. The most recent chest x-ray done yesterday which was reviewed personally by me, showed evidence of some infiltrate, right more than the left. The patient closely monitored. Patient is a custodial resident. Past medical history reviewed. REVIEW OF SYSTEMS: Could not be taken. CURRENT MEDICATIONS ARE: Current medications are reviewed and include: Tylenol, Freedom, Maalox, Ventolin. Norvasc. Vitamin C, Lipitor, Hexadrol, Aricept, other medication and doses reviewed. PHYSICAL EXAM: Patient is conscious, confused. Pulse 77, blood pressure 160/77, respiration 20, temperature 97.2, pulse ox 98% on room air. HEENT: Conjunctivae normal. NECK: No JVD. CARDIOVASCULAR: S1, S2 muffled. RESPIRATORY SYSTEM: Breath sounds diminished at the bases. A few scattered rhonchi and crackles. ABDOMEN: Soft. Nontender. Legs are no edema, no swelling. NERVOUS SYSTEM: No focal deficits. LAB STUDIES: WBC 11.7. D-dimer is 0.7 and BUN and creatinine noted. C-reactive protein is procalcitonin 0.34. CRP is 2.3, much improved. ASSESSMENT: 1. Acute COVID-19 infection with bilateral interstitial pneumonia, right more than the left with possible sepsis present on admission. 2. Possible suppurative bacterial pneumonia. 3. Increased WBC. 4. Elevated D-dimer with no evidence of pulmonary embolism with low probability V/Q scan. 5. Acute renal failure, possibly acute tubular necrosis, prerenal factors. 6. Hyperkalemia from renal failure. 7. Elevated ferritin. 8. Increased AST. 9. Increased LDH. 10.Increased CRP. 11.Elevated inflammatory markers of Covid 19. 12.History of cerebrovascular accident/transient ischemic attack. 13.Dementia. 14.Gastroesophageal reflux disease. 15.Hypertension. 16.Hyperlipidemia. 17.History of vascular dementia. 18.History of degenerative joint disease. 19.History of coronary artery disease/coronary artery bypass grafting/stent. 20.History of anxiety. 21.FULL CODE. RECOMMENDATIONS AND DISCUSSION: Recommend to continue current medications, management and symptomatic treatment. Continue with continue the rest of medication, Decadron for 10 days. Prognosis guarded. Further recommendations to follow. MMODL / IJN: [id number] /
[2020-06-11 20:31] LABS: Glucose,Whole Blood 103 mg/dL (75-99)
[2020-06-11] MEDS: DONEPEZIL 5 MG TAB PO SCH (20:45)
[2020-06-11] MEDS: ATORVASTATIN 20 MG TAB PO SCH (20:45)
[2020-06-11] MEDS: ASPIRIN 81 MG PO SCH (20:45)
[2020-06-11] MEDS: traZODone HCL 50 MG TAB PO SCH (20:45)
[2020-06-12] MEDS: HYDROcodone/APAP 5-325MG 1 EACH TAB PO PRN ×2 (01:52→14:58)
[2020-06-12 06:34] LABS: Basophils # (A) 0.1 k/uL (0-0.2); Basophils % (A) 1 %; Eosinophils % (A) 0 %; HCT 44.4 % (39.0-53.0); HGB 14.8 gm/dL (13.0-17.5); Lymphocytes # (A) 0.4 k/uL (1.0-4.8); Lymphocytes % (A) 3 %; MCH 31.4 pg (25.0-35.0); MCHC 33.4 g/dL (31.0-37.0); Mean Platelet Volume 8.7; Monocytes # (A) 0.6 k/uL (0-1.0); Monocytes % (A) 5 %; Neutrophils # (A) 11.7 k/uL (1.3-7.7); Neutrophils % (A) 91 %; Platelet Count 254 k/uL (150-450); RBC 4.73 m/uL (4.30-5.90); RDW 13.6 % (11.5-15.5); WBC 12.9 k/uL (3.8-10.6)
--- NOTE | 2020-06-12 06:45 | XR ---
EXAMINATION TYPE: XR chest 1V portable DATE OF EXAM: 06/12/2020 CLINICAL HISTORY: Difficulty breathing progress study. Covid 19 positive possible CHF. TECHNIQUE: Single AP portable upright view of the chest is obtained. COMPARISON: Chest x-ray from 2 days earlier and older studies. CT chest 3 days ago. FINDINGS: Overlying sternal wires and mediastinal clips redemonstrated. Chronic parenchymal changes and low lung volumes with increased multifocal lower lung opacities bilaterally redemonstrated. No pl eural effusion or pneumothorax seen. Cardiac silhouette size stable and upper limits of normal. [place] structures remain intact. IMPRESSION: Chronic changes with multifocal bilateral lower lung acute infiltrates consistent with co vid 19 infection. No significant change from most recent prior studies.
[2020-06-12 07:15] LABS: Glucose,Whole Blood 97 mg/dL (75-99)
--- NOTE | 2020-06-12 07:59 | P.PN ---
Subjective Progress Note Date: 06/12/20 Principal diagnosis: this is a 75-year-old male admitted with Quan pneumonia and followed up for acute kidney injury and chronic kidney disease. He is a prison resident and is somewhat confused and has dementia other than that he is known with hypertension and heart disease. Currently he is awake alert confused denies any complaints no chest pain shortness of breath fever chills nausea vomiting. He is on room air. The nursing staff tells me that he is eating poorly. NO diarrhea. on admission his creatinine was 2.38 and is down to 1.3 as of yesterday dict ated he has 1+ proteinuria His baseline creatinine is 1.59 as of 03/26/2019. Objective - Vital Signs Vital signs: Vital Signs Temp 98 F 06/12/20 06:23 Pulse 55 L 06/12/20 06:23 Resp 20 06/12/20 06:23 BP 159/77 06/12/20 06:23 Pulse Ox 95 06/12/20 06:23 Intake & Output 06/11/20 06/12/20 06/12/20 18:59 06:59 18:59 Intake Total 400 Output Total 2 Balance -2 400 Intake: Oral 400 Output: Stool 2 Other: Voiding Method Diaper Incontinent # Voids 3 3 # Bowel Movements 1 1 examination awake alert this oriented but able to answer many questions. HEENT exam no JVP neck is supple no facial asymmetry Lungs are clear to auscultation good air entry bilaterally Heart sounds are unremmarkable no murmur rub gallop abdomen soft nontender no organomegaly status masses Extremity exam was no edema Skin shows scratching call Neurologically awake alert but disoriented - Labs CBC & Chem 7: 06/12/20 06:17 06/11/20 06:28 Labs: Abnormal Lab Results - Last 24 Hours (Table) 06/11/20 06/11/20 06/11/20 Range/Units 06:28 12:18 17:33 WBC (3.8-10.6) k/uL Neutrophils # (1.3-7.7) k/uL Lymphocytes # (1.0-4.8) k/uL D-Dimer (<0.60) mg/L FEU Chloride 111 H (96-109) mmol/L Carbon Dioxide 19.2 L (21.6-31.8) mmol/L BUN 39.0 H (9.0-27.0) mg/dL Est GFR (CKD-EPI)NonAf 53.0 L (60.0-200.0) BUN/Creatinine Ratio 30.00 H (12.00-20.00) Ratio POC Glucose (mg/dL) 111 H 121 H (75-99) mg/dL Calcium 8.6 L (8.7-10.3) mg/dL C-Reactive Protein 2.3 H (0.0-0.8) mg/dL 06/11/20 06/12/20 06/12/20 Range/Units 20:11 06:17 06:17 WBC 12.9 H (3.8-10.6) k/uL Neutrophils # 11.7 H (1.3-7.7) k/uL Lymphocytes # 0.4 L (1.0-4.8) k/uL D-Dimer 0.88 H (<0.60) mg/L FEU Chloride (96-109) mmol/L Carbon Dioxide (21.6-31.8) mmol/L BUN (9.0-27.0) mg/dL Est GFR (CKD-EPI)NonAf (60.0-200.0) BUN/Creatinine Ratio (12.00-20.00) Ratio POC Glucose (mg/dL) 103 H (75-99) mg/dL Calcium (8.7-10.3) mg/dL C-Reactive Protein (0.0-0.8) mg/dL Microbiology - Last 24 Hours (Table) 06/09/20 05:08 Blood Culture - Preliminary Blood No Growth after 72 hours 06/09/20 05:03 Blood Culture - Preliminary Blood No Growth after 72 hours Assessment and Plan Assessment: impression 1. acute kidney injury secondary to colon pneumonia improved with hydration creatinine down from 2.38-1.3 2. History of Covid pneumonia. Stable. 3. Chronic kidney disease , stage III Baseline creatinine was 1.59 03/26/2019 1+ proteinuria likely nephrosclerosis 4. Hypertension slightly about target 5. Mild review of non-gap acidosis from acute kidney injury and chronic kidney disease likely made worse by the normal saline 6. Hyperkalemia resolved etiology was acute kidney injury. Recommendation 1. Continue IV normal saline and this intake is adequate 2. Will watch his bicarb and see if it will improve otherwise start him on sodium bicarb
[2020-06-12] MEDS: CHOLECALCIFEROL 1,000 UNIT TAB PO SCH (08:05)
[2020-06-12] MEDS: amLODIPine 10 MG TAB PO SCH (08:05)
[2020-06-12] MEDS: ZINC SULFATE 220 MG CAP PO SCH (08:05)
[2020-06-12] MEDS: INSULIN ASPART (NovoLOG) 100 UNIT/ML VIAL SQ SCH ×4 (08:05→20:27)
[2020-06-12] MEDS: LORazepam 0.5 MG TAB PO SCH ×3 (08:05→23:06)
[2020-06-12] MEDS: HYDROcodone/APAP 5-325MG 1 EACH TAB PO SCH ×3 (08:05→19:12)
[2020-06-12] MEDS: ASCORBIC ACID 500 MG TAB PO SCH (08:05)
[2020-06-12] MEDS: dexAMETHasone 2 MG TAB PO SCH (08:05)
[2020-06-12] MEDS: HEPARIN SODIUM,PORCINE 5,000 UNIT/ML 1 ML VIAL SQ SCH ×3 (08:06→23:06)
[2020-06-12 09:36] LABS: African American GFR (CKD) 56.2 (60.0-200.0); Anion Gap 9.4 mmol/L (4.00-12.00); BUN/Creat Ratio 26.43 Ratio (12.00-20.00); C Reactive Protein 0.9 mg/dL (0.0-0.8); Carbon Dioxide 17.6 mmol/L (21.6-31.8); Non-African American GFR(CKD) 48.5 (60.0-200.0); Potassium 5.3 mmol/L (3.5-5.5)
[2020-06-12 11:31] LABS: Glucose,Whole Blood 97 mg/dL (75-99)
--- NOTE | 2020-06-12 13:00 | P.PN ---
Subjective Progress Note Date: 06/12/20 Principal diagnosis: Acute hypoxic respiratory failure secondary to CoVID 19 pneumonia This is a 75-year-old male patient with a history of previous CVA/TIA, gastroesophageal reflux disease, hyperlipidemia, hypertension, dementia. He was tested positive for CoVID 19 in the outpatient setting he was developing increasing shortness of breath and hypoxemia and seen in the emergency room earlier this morning for the same. Chest x-ray revealed patchy retrocardiac opacity possible aspiration versus infection. White count 11.1. Hemoglobin 16.0. Lymphocytes 0.2. D-dimer 1.00. INR 1.1. Sodium 134. Potassium 5.5. Creatinine 2.38. Ferritin 1248. LDH 1173. C-reactive proteins 67.6. VQ scan revealed low probability for pulmonary embolus. He did receive Lovenox. Init iated on dexamethasone. He is seen today in consultation on the regular medical floor. He is currently awake and alert. Continue O2 saturations in the 90s on 3 L/m per nasal cannula. He is afebrile. Swallow evaluation in progress. The patient is a poor historian. The patient is seen today 06/10/2020 in follow-up on the regular medical floor. He is currently resting in bed. Awake and alert in no acute distress. Maintaining O2 saturations in the 90s on 2 L/m per nasal cannula. He is cur rently afebrile. Blood cultures reveal no growth. White count 5.0. Hemoglobin 15.0. Lymphocytes 0.3. D-dimer 0.68. Glucose 111. He is currently on dexamethasone. Heparin subcutaneous for DVT prophylaxis. Vitamin supplements. The patient is seen today 06/11/2019 in follow-up on the regular medical floor. He is awake and alert. Resting comfortably in bed. Currently maintaining O2 saturations in the low 90s on room air. Afebrile. Hemodynamically stable. White count 11.7. Hemoglobin 14.3. Lymphocytes 0.5. D-dimer 0.7. Sodium 140. Potassium 4.9. Creatinine 1.3. Protein 2.3. He remains on dexamethasone, Heparin subcutaneous for DVT prophylaxis. Vitamin supplements. The patient is seen today 06/12/2019 in follow-up on the regular medical floor. He is currently resting comfortably in bed. Awake and alert in no acute distress. Maintaining O2 saturations in the low 90s on room air. He's been afebrile. Hemodynamically stable. The cultures reveal no growth. White count 12.9. Hemoglobin 14.8. Lymphocytes 0.4. D-dimer 0.88. Sodium 141. Potassium 5.3. Creatinine 1.4. C-reactive protein 0.9. Pro-Calcitonin 0.14. Chest x- ray continues show chronic changes with multifocal bilateral lower lung acute infiltrates consistent with CoVID 19 infection. No significant change compared to previous. He remains on dexamethasone, Heparin subcutaneous for DVT prophyla xis. Vitamin supplements. Objective - Vital Signs Vital signs: Vital Signs Temp 98.2 F 06/12/20 10:05 Pulse 75 06/12/20 10:05 Resp 18 06/12/20 10:05 BP 142/81 06/12/20 10:05 Pulse Ox 92 L 06/12/20 10:05 Intake & Output 06/11/20 06/12/20 06/12/20 18:59 06:59 18:59 Intake Total 400 Output Total 2 Balance -2 400 Intake: Oral 400 Output: Stool 2 Other: Voiding Method Diaper Incontinent # Voids 3 3 # Bowel Movements 1 1 - Exam GENERAL EXAM: Alert, pleasant 75-year-old gentleman, on room air, comfortable in no apparent distress. HEAD: Normocephalic. EYES: Normal reaction of pupils, equal size. NOSE: Clear with pink turbinates. THROAT: No erythema or exudates. NECK: No masses, no JVD. CHEST: No chest wall deformity. LUNGS: Equal air entry with bilateral scattered rhonchi CVS: S1 and S2 normal with no audible murmur, regular rhythm. ABDOMEN: No hepatosplenomegaly, normal bowel sounds, no guarding or rigidity. SPINE: No scoliosis or deformity SKIN: No rashes CENTRAL NERVOUS SYSTEM: No focal deficits, tone is normal in all 4 extremities. EXTREMITIES: There is no peripheral edema. No clubbing, no cyanosis. Peripheral pulses are intact. - Labs CBC & Chem 7: 06/12/20 06:17 06/12/20 06:17 Labs: Abnormal Lab Results - Last 24 Hours (Table) 06/11/20 06/11/20 06/12/20 Range/Units 17:33 20:11 06:17 WBC (3.8-10.6) k/uL Neutrophils # (1.3-7.7) k/uL Lymphocytes # (1.0-4.8) k/uL D-Dimer (<0.60) mg/L FEU Chloride (96-109) mmol/L Carbon Dioxide (21.6-31.8) mmol/L BUN (9.0-27.0) mg/dL Est GFR (CKD-EPI)AfAm (60.0-200.0) Est GFR (CKD-EPI)NonAf (60.0-200.0) BUN/Creatinine Ratio (12.00-20.00) Ratio POC Glucose (mg/dL) 121 H 103 H (75-99) mg/dL C-Reactive Protein (0.0-0.8) mg/dL Procalcitonin 0.14 H (0.02-0.09) ng/mL 06/12/20 06/12/20 06/12/20 Range/Units 06:17 06:17 06:17 WBC 12.9 H (3.8-10.6) k/uL Neutrophils # 11.7 H (1.3-7.7) k/uL Lymphocytes # 0.4 L (1.0-4.8) k/uL D-Dimer 0.88 H (<0.60) mg/L FEU Chloride 114 H (96-109) mmol/L Carbon Dioxide 17.6 L (21.6-31.8) mmol/L BUN 37.0 H (9.0-27.0) mg/dL Est GFR (CKD-EPI)AfAm 56.2 L (60.0-200.0) Est GFR (CKD-EPI)NonAf 48.5 L (60.0-200.0) BUN/Creatinine Ratio 26.43 H (12.00-20.00) Ratio POC Glucose (mg/dL) (75-99) mg/dL C-Reactive Protein 0.9 H (0.0-0.8) mg/dL Procalcitonin (0.02-0.09) ng/mL Microbiology - Last 24 Hours (Table) 06/09/20 05:08 Blood Culture - Preliminary Blood No Growth after 72 hours 06/09/20 05:03 Blood Culture - Preliminary Blood No Growth after 72 hours Assessment and Plan Assessment: 1 Acute hypoxic respiratory failure secondary to CoVID 19 pneumonia, improving on room air 2 Elevated inflammatory markers secondary to above 3 History of dementia 4 History of CVA/TIA 5 Gastroesophageal reflux disease 6 Hyperlipidemia 7 Hypertension Plan: The patient was seen and evaluated by Dr. Angulo Chest x-ray and labs reviewed Continue Decadron for a total of 10 days Heparin subcutaneous for DVT prophylaxis Vitamin supplements Discharge once cleared medically I, the cosigning physician, performed a history & physical examination of the p atient. Lungs sounds with bilateral scattered rhonchi. Maintaining good O2 saturations in the 90s on room air. I discussed the assessment and plan of care with my nurse practitioner, Linh Mahan. I attest to the above note as dictated by her.
[2020-06-12] MEDS: SODIUM CHLORIDE 0.9% 1,000 ML IV SCH (13:15)
--- NOTE | 2020-06-12 15:58 | PN ---
PROGRESS NOTE DATE OF SERVICE: 06/12/2020 INTERVAL HISTORY: This is a 75-year-old gentleman who was admitted with acute COVID-19 infection, also had bilateral interstitial pneumonia. The patient also had possible super added bacterial pneumonia also. Patient on broad spectrum IV antibiotics. Most recent chest x-ray which was reviewed personally by me showed bilateral infiltrates, right more than the left and the patient continues to be confused. PAST MEDICAL HISTORY: Reviewed. REVIEW OF SYMPTOMS: Could not be taken. The patient is confused. CURRENT MEDICATIONS: Noted including Tylenol, [place], Lanoxin, Norvasc, vitamin C, aspirin, Hexadrol, Narcan Protonix. Medication doses are reviewed. PHYSICAL EXAM: GENERAL: Patient is conscious but confused. VITAL SIGNS: Pulse 75, blood pressure 143/81, respirations 18, temperature 98.2, pulse ox 92% on room air HEENT: Conjunctivae normal. Oral mucosa moist. NECK: No jugular venous distention. No carotid bruits. No lymph node enlargement. RESPIRATORY: Breath sounds diminished at the bases. No rhonchi, no crackles. HEART: S1 and S2, muffled. ABDOMEN: Soft, no tenderness. No masses palpable. EXTREMITIES: No edema, no swelling. NERVOUS: No focal deficits. LAB STUDIES: WBC 12.9. D-dimer is 0.88 and procalcitonin 0.14. ASSESSMENT: 1. Acute COVID-19 infection with bilateral interstitial pneumonia, right more than the left with possible sepsis present on admission. 2. Possible super added bacterial pneumonia. 3. Increased WBC. 4. Elevated D-dimer with no evidence of pulmonary embolism and low probability V/Q scan. 5. Acute renal failure possible acute tubular necrosis with prerenal factors. 6. Hyperkalemia from renal failure. 7. Elevated ferritin. 8. Increased AST. 9. Increase LDH. 10.Increased CRP. 11.Elevated inflammatory markers of COVID-19 .. 12.History of cerebrovascular accident, transient ischemic attack. 13.Dementia. 14.Gastroesophageal reflux disease. 15.Hypertension. 16.Hyperlipidemia. 17.History of vascular dementia. 18.History of degenerative joint disease. 19.History of coronary artery disease with coronary artery bypass graft and stent. 20.History of anxiety. 21.FULL CODE. RECOMMENDATIONS AND DISCUSSION: Recommend to continue current medications, management and symptomatic treatment. Otherwise, at this time I recommend to continue with current medications and continue the broad-spectrum IV antibiotics. Repeat labs. I would also recommend antibiotics. Guarded prognosis. Further recommendations to follow. MMODL / IJN: [id number] /
[2020-06-12 16:18] LABS: Glucose,Whole Blood 113 mg/dL (75-99)
[2020-06-12] MEDS: polyethylene glycoL 3350 17 GM POWD.PACK PO SCH (16:25)
[2020-06-12] MEDS: LORazepam 1 MG TAB PO SCH (16:48)
[2020-06-12] MEDS: PANTOPRAZOLE 40 MG TABLET PO SCH (16:48)
[2020-06-12 20:13] LABS: Glucose,Whole Blood 127 mg/dL (75-99)
[2020-06-12] MEDS: DONEPEZIL 5 MG TAB PO SCH (20:29)
[2020-06-12] MEDS: traZODone HCL 50 MG TAB PO SCH (20:29)
[2020-06-12] MEDS: ATORVASTATIN 20 MG TAB PO SCH (20:29)
[2020-06-12] MEDS: ASPIRIN 81 MG PO SCH (20:29)
--- NOTE | 2020-06-12 23:20 | PN ---
PROGRESS NOTE DATE OF SERVICE: 06/12/2020 REASON FOR FOLLOWUP: COVID-19 pneumonia. The patient is currently afebrile. The patient is breathing comfortably. He seems to be slightly more awake and alert however, not a very good historian to provide any information. No vomiting, diarrhea or any other changes reported by nursing staff. PHYSICAL EXAMINATION: Blood pressure 124/70 with a pulse of 68, temperature 98.8. He is 94% on room air. General description: The patient is an elderly male lying in bed in no distress. Respiratory system: Unlabored breathing, decreased breath sounds at bases. No wheeze. HEART: S1, S2. Regular rate and rhythm. ABDOMEN: Soft, no tenderness. LABS: Hemoglobin 14, white count 12.9. Procalcitonin 0.14, CRP 0.9. DIAGNOSTIC IMPRESSION/PLAN: The patient admitted to the hospital with Covid 19 infection, treated conservatively. The patient is currently not hypoxic and is on Dexamethasone, Lovenox with Rocephin and Zithromax. to continue and monitor clinical course closely. MMJEROMEL / IJN: [id number] / MTDD
[2020-06-13] MEDS: HYDROcodone/APAP 5-325MG 1 EACH TAB PO PRN ×2 (03:47→10:42)
[2020-06-13 07:09] LABS: Glucose,Whole Blood 101 mg/dL (75-99)
[2020-06-13] MEDS: amLODIPine 10 MG TAB PO SCH (08:13)
[2020-06-13] MEDS: ZINC SULFATE 220 MG CAP PO SCH (08:13)
[2020-06-13] MEDS: HYDROcodone/APAP 5-325MG 1 EACH TAB PO SCH ×3 (08:14→20:32)
[2020-06-13] MEDS: CHOLECALCIFEROL 1,000 UNIT TAB PO SCH (08:14)
[2020-06-13] MEDS: ASCORBIC ACID 500 MG TAB PO SCH (08:14)
[2020-06-13] MEDS: HEPARIN SODIUM,PORCINE 5,000 UNIT/ML 1 ML VIAL SQ SCH ×3 (08:14→23:07)
[2020-06-13] MEDS: LORazepam 0.5 MG TAB PO SCH ×3 (08:14→23:07)
[2020-06-13] MEDS: dexAMETHasone 2 MG TAB PO SCH (08:14)
[2020-06-13] MEDS: INSULIN ASPART (NovoLOG) 100 UNIT/ML VIAL SQ SCH ×4 (09:00→20:18)
[2020-06-13] MEDS: SODIUM CHLORIDE 0.9% 1,000 ML IV SCH ×2 (09:00→13:32)
--- NOTE | 2020-06-13 09:23 | P.PN ---
Subjective Progress Note Date: 06/13/20 Principal diagnosis: this is a 75-year-old male admitted with Covid pneumonia and followed up for acute kidney injury and chronic kidney disease. 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 Other than that he is known with hypertension and heart disease. Currently he is awake alert confused denies any complaints no chest pain shortness of breath fever chills nausea vomiting. Spoke to the nurse who stated that she his complaining of right-sided shoulder and jaw pain. He is eating very little he has an external [place] on admission his creatinine was 2.38 and is down to 1.3 > 1.4 as of yesterday, he has 1+ proteinuria His baseline creatinine is 1.59 as of 03/26/2019. Objective - Vital Signs Vital signs: Vital Signs Temp 97.6 F 06/13/20 06:16 Pulse 79 06/13/20 06:16 Resp 22 06/13/20 06:16 BP 158/89 06/13/20 06:16 Pulse Ox 94 L 06/13/20 06:16 Intake & Output 06/12/20 06/13/20 06/13/20 18:59 06:59 18:59 Output Total 500 1600 Balance -500 -1600 Output: Urine 500 1600 Other: Voiding Method Diaper Diaper Incontinent Incontinent External Catheter # Voids 4 # Bowel Movements 1 Patient was examined from the door of the room because of the Covid He is awake alert but complaining of pain. He has no edema Vital signs are stable. Adequate urine output He remains confused - Labs CBC & Chem 7: 06/12/20 06:17 06/12/20 06:17 Labs: Abnormal Lab Results - Last 24 Hours (Table) 06/12/20 06/12/20 06/12/20 Range/Units 06:17 06:17 16:14 Chloride 114 H (96-109) mmol/L Carbon Dioxide 17.6 L (21.6-31.8) mmol/L BUN 37.0 H (9.0-27.0) mg/dL Est GFR (CKD-EPI)AfAm 56.2 L (60.0-200.0) Est GFR (CKD-EPI)NonAf 48.5 L (60.0-200.0) BUN/Creatinine Ratio 26.43 H (12.00-20.00) Ratio POC Glucose (mg/dL) 113 H (75-99) mg/dL C-Reactive Protein 0.9 H (0.0-0.8) mg/dL Procalcitonin 0.14 H (0.02-0.09) ng/mL 06/12/20 06/13/20 Range/Units 20:11 07:07 Chloride (96-109) mmol/L Carbon Dioxide (21.6-31.8) mmol/L BUN (9.0-27.0) mg/dL Est GFR (CKD-EPI)AfAm (60.0-200.0) Est GFR (CKD-EPI)NonAf (60.0-200.0) BUN/Creatinine Ratio (12.00-20.00) Ratio POC Glucose (mg/dL) 127 H 101 H (75-99) mg/dL C-Reactive Protein (0.0-0.8) mg/dL Procalcitonin (0.02-0.09) ng/mL Microbiology - Last 24 Hours (Table) 06/09/20 05:08 Blood Culture - Preliminary Blood No Growth after 96 hours 06/09/20 05:03 Blood Culture - Preliminary Blood No Growth after 96 hours 06/11/20 18:24 Blood Culture - Preliminary Blood No Growth after 24 hours Assessment and Plan Assessment: impression 1. acute kidney injury secondary to Covid pneumonia improved with hydration creatinine down from 2.38-1.3 > 1.4 on 06/12/2020. No labs available yet today 2. History of Covid pneumonia. Stable. on room air 3. Chronic kidney disease , stage III Baseline creatinine was 1.59 03/26/2019 1+ proteinuria likely nephrosclerosis 4. Hypertension slightly about target 5. Mild review of non-gap acidosis from acute kidney injury and chronic kidney disease likely made worse by the normal saline 6. Hyperkalemia resolved etiology was acute kidney injury. Recommendation 1. Continue IV normal saline as hisintake is inadequate 2. Start oral bicarb 650 4 times a day
[2020-06-13] MEDS: SODIUM BICARBONATE TAB 650 MG TAB PO SCH ×4 (10:41→23:07)
[2020-06-13 11:34] LABS: Glucose,Whole Blood 103 mg/dL (75-99)
--- NOTE | 2020-06-13 12:07 | P.PN ---
Subjective Progress Note Date: 06/13/20 Principal diagnosis: Acute hypoxic respiratory failure secondary to CoVID 19 pneumonia This is a 75-year-old male patient with a history of previous CVA/TIA, gastroesophageal reflux disease, hyperlipidemia, hypertension, dementia. He was tested positive for CoVID 19 in the outpatient setting he was developing increasing shortness of breath and hypoxemia and seen in the emergency room earlier this morning for the same. Chest x-ray revealed patchy retrocardiac opacity possible aspiration versus infection. White count 11.1. Hemoglobin 16.0. Lymphocytes 0.2. D-dimer 1.00. INR 1.1. Sodium 134. Potassium 5.5. Creatinine 2.38. Ferritin 1248. LDH 1173. C-reactive proteins 67.6. VQ scan revealed low probability for pulmonary embolus. He did receive Lovenox. Init iated on dexamethasone. He is seen today in consultation on the regular medical floor. He is currently awake and alert. Continue O2 saturations in the 90s on 3 L/m per nasal cannula. He is afebrile. Swallow evaluation in progress. The patient is a poor historian. The patient is seen today 06/10/2020 in follow-up on the regular medical floor. He is currently resting in bed. Awake and alert in no acute distress. Maintaining O2 saturations in the 90s on 2 L/m per nasal cannula. He is cur rently afebrile. Blood cultures reveal no growth. White count 5.0. Hemoglobin 15.0. Lymphocytes 0.3. D-dimer 0.68. Glucose 111. He is currently on dexamethasone. Heparin subcutaneous for DVT prophylaxis. Vitamin supplements. The patient is seen today 06/11/2019 in follow-up on the regular medical floor. He is awake and alert. Resting comfortably in bed. Currently maintaining O2 saturations in the low 90s on room air. Afebrile. Hemodynamically stable. White count 11.7. Hemoglobin 14.3. Lymphocytes 0.5. D-dimer 0.7. Sodium 140. Potassium 4.9. Creatinine 1.3. Protein 2.3. He remains on dexamethasone, Heparin subcutaneous for DVT prophylaxis. Vitamin supplements. The patient is seen today 06/12/2019 in follow-up on the regular medical floor. He is currently resting comfortably in bed. Awake and alert in no acute distress. Maintaining O2 saturations in the low 90s on room air. He's been afebrile. Hemodynamically stable. The cultures reveal no growth. White count 12.9. Hemoglobin 14.8. Lymphocytes 0.4. D-dimer 0.88. Sodium 141. Potassium 5.3. Creatinine 1.4. C-reactive protein 0.9. Pro-Calcitonin 0.14. Chest x- ray continues show chronic changes with multifocal bilateral lower lung acute infiltrates consistent with CoVID 19 infection. No significant change compared to previous. He remains on dexamethasone, Heparin subcutaneous for DVT prophyla xis. Vitamin supplements. The patient is seen today 06/13/2019 in follow-up on the regular medical floor. He is awake and alert in no acute distress. Maintaining O2 saturations in the 90s on room air. 0.9 normal saline at 75 ML's per hour. He is confused. He is a poor historian. Blood glucose 103. He remains on dexamethasone. Heparin subcu for DVT prophylaxis. Vitamin supplements. Objective - Vital Signs Vital signs: Vital Signs Temp 97.2 F L 06/13/20 10:32 Pulse 74 06/13/20 10:32 Resp 18 06/13/20 10:32 BP 149/77 06/13/20 10:32 Pulse Ox 92 L 06/13/20 10:32 Intake & Output 06/12/20 06/13/20 06/13/20 18:59 06:59 18:59 Output Total 500 1600 550 Balance -500 -1600 -550 Output: Urine 500 1600 550 Other: Voiding Method Diaper Diaper Incontinent Incontinent External Catheter # Voids 4 # Bowel Movements 1 - Exam GENERAL EXAM: Alert, pleasant , confused 75-year-old gentleman, on room air, comfortable in no apparent distress. HEAD: Normocephalic. EYES: Normal reaction of pupils, equal size. NOSE: Clear with pink turbinates. THROAT: No erythema or exudates. NECK: No masses, no JVD. CHEST: No chest wall deformity. LUNGS: Equal air entry with bilateral scattered rhonchi CVS: S1 and S2 normal with no audible murmur, regular rhythm. ABDOMEN: No hepatosplenomegaly, normal bowel sounds, no guarding or rigidity. SPINE: No scoliosis or deformity SKIN: No rashes CENTRAL NERVOUS SYSTEM: No focal deficits, tone is normal in all 4 extremities. EXTREMITIES: There is no peripheral edema. No clubbing, no cyanosis. P eripheral pulses are intact. - Labs CBC & Chem 7: 06/12/20 06:17 06/12/20 06:17 Labs: Abnormal Lab Results - Last 24 Hours (Table) 06/12/20 06/12/20 06/13/20 Range/Units 16:14 20:11 07:07 POC Glucose (mg/dL) 113 H 127 H 101 H (75-99) mg/dL 06/13/20 Range/Units 11:32 POC Glucose (mg/dL) 103 H (75-99) mg/dL Microbiology - Last 24 Hours (Table) 06/09/20 05:08 Blood Culture - Preliminary Blood No Growth after 96 hours 06/09/20 05:03 Blood Culture - Preliminary Blood No Growth after 96 hours 06/11/20 18:24 Blood Culture - Preliminary Blood No Growth after 24 hours Assessment and Plan Assessment: 1 Acute hypoxic respiratory failure secondary to CoVID 19 pneumonia, improving on room air 2 Elevated inflammatory markers secondary to above 3 History of dementia 4 History of CVA/TIA 5 Gastroesophageal reflux disease 6 Hyperlipidemia 7 Hypertension Plan: The patient was seen and evaluated by Dr. Kev Blake for a total of 10 days Heparin subcutaneous for DVT prophylaxis Vitamin supplements Discharge once cleared medically I, the cosigning physician, performed a history & physical examination of the patient. Lungs sounds with bilateral scattered rhonchi. Maintaining good O2 saturations in the 90s on room air. I discussed the assessment and plan of care with my nurse practitioner, Linh Mahan. I attest to the above note as dictated by her.
[2020-06-13] MEDS: polyethylene glycoL 3350 17 GM POWD.PACK PO SCH (15:15)
[2020-06-13 16:26] LABS: Glucose,Whole Blood 118 mg/dL (75-99)
--- NOTE | 2020-06-13 16:50 | PN ---
PROGRESS NOTE DATE OF SERVICE: 06/13/2020 This 75-year-old gentleman who was admitted with acute Covid 19 showed bilateral interstitial pneumonia. The patient also super added bacterial pneumonia, which is being treated with IV antibiotics also. Most recent chest x-ray reviewed personally by me. Patient being closely monitored. Patient is rather emotional at this time. Patient is confused. Past medical history reviewed. REVIEW OF SYSTEMS: Could not be taken, the patient is confused as baseline. CURRENT MEDICATIONS: Tylenol, [place], Maalox, Ventolin. Norvasc, Artificial Tears, vitamin C, aspirin, Lipitor. Doses are reviewed. PHYSICAL EXAM: Patient is conscious, confused. Pulse 74, blood pressure 149/76, respiration 18, temperature 97.2, pulse ox 92 percent room air. HEENT: Conjunctivae normal. Neck: No JVD. CARDIOVASCULAR: S1, S2 muffled. Respiration: Breath sounds diminished in the bases. A few scattered rhonchi and crackles. ABDOMEN: Soft. Nontender. Legs no edema. Nervous system: Diffusely weak. LAB: Accu-Cheks 103. WBC 12.9. Other labs are noted. ASSESSMENT: 1. Acute COVID-19 infection with bilateral interstitial pneumonia, right more the left with possible sepsis, present on admission. 2. Possible super added bacterial pneumonia. 3. Increased WBC. 4. Elevated D-dimer with no evidence of pulmonary embolism, low probability V/Q scan. 5. Acute renal failure with possible acute tubular necrosis with prerenal factors. 6. Hyperkalemia from renal failure. 7. Elevated ferritin. 8. Increased AST. 9. Increased LDH. 10.Increased CRP. 11.Elevated inflammatory markers of Covid 19. 12.History of cerebrovascular accident, transient ischemic attack. 13.Dementia. 14.Gastroesophageal reflux disease. 15.Hypertension. 16.Hyperlipidemia. 17.History of vascular dementia. 18.History of degenerative joint disease. 19.History of coronary artery disease/coronary artery bypass grafting/stent. 20.History of anxiety. 21.FULL CODE. RECOMMENDATIONS AND DISCUSSION: I recommend to continue current management and symptomatic treatment. Otherwise, at this time, I recommend to follow closely. Empiric antibiotics. I would also recommend ultrasound of the both legs, to rule out DVT to complete the workup. Prognosis guarded. Further recommendations to follow. The patient has multiple complex medical issues related to COVID-19 infection. MMODL / IJN: [id number] /
[2020-06-13] MEDS: LORazepam 1 MG TAB PO SCH (17:04)
[2020-06-13] MEDS: PANTOPRAZOLE 40 MG TABLET PO SCH (17:04)
--- NOTE | 2020-06-13 17:20 | US ---
EXAMINATION TYPE: US venous doppler duplex LE BI DATE OF EXAM: 06/13/2020 5:02 PM COMPARISON: NONE CLINICAL HISTORY: covid, sob SIDE PERFORMED: Bilateral TECHNIQUE: The lower extremity deep venous system is examined utilizing real time linear array sonog [place] with graded compression, doppler sonography and color-flow sonography. VESSELS IMAGED: Common Femoral Vein Deep Femoral Vein Greater Saphenous Vein * Femoral Vein Popliteal Vein Small Saphenous Vein * Proximal Calf Veins (* superficial vessels) Right Leg: Negative for DVT Left Leg: Negative for DVT IMPRESSION: No sign of deep vein thrombosis in both legs.
[2020-06-13 20:16] LABS: Glucose,Whole Blood 104 mg/dL (75-99)
[2020-06-13] MEDS: ASPIRIN 81 MG PO SCH (20:32)
[2020-06-13] MEDS: traZODone HCL 50 MG TAB PO SCH (20:32)
[2020-06-13] MEDS: ATORVASTATIN 20 MG TAB PO SCH (20:33)
[2020-06-13] MEDS: DONEPEZIL 5 MG TAB PO SCH (20:33)
[2020-06-13 22:22] VITALS: RESP 18
--- NOTE | 2020-06-13 22:41 | PN ---
PROGRESS NOTE DATE OF SERVICE: 06/13/2020 REASON FOR FOLLOWUP: COVID-19 pneumonia. INTERVAL HISTORY: Patient is currently afebrile. Patient is breathing comfortably on room air. He seems to be slightly more awake, however, remains to be pleasantly confused, unable to provide any history. No vomiting or diarrhea has been reported. PHYSICAL EXAMINATION: Blood pressure 153/96. Pulse of 81, temperature 98.8. He is 94% on room air. General description is an elderly male lying in bed in no distress. Respiratory system: Unlabored breathing, decreased breath sounds at bases. No wheeze. Heart S1, S2. Regular rate and rhythm. Abdomen soft. No tenderness. LABS: No new labs have been obtained today. DIAGNOSTIC IMPRESSION AND PLAN: Patient with acute COVID-19 infection in this patient overall improvement. Currently on dexamethasone, Lovenox and zinc, Rocephin and Zithromax. Continue showing overall clinical improvement and continue supportive care. MMODL / IJN: [id number] / MTDD
[2020-06-14 06:39] LABS: Basophils % (A) 0 %; Eosinophils % (A) 0 %; HCT 43.8 % (39.0-53.0); Lymphocytes # (A) 0.5 k/uL (1.0-4.8); Lymphocytes % (A) 5 %; MCH 31.6 pg (25.0-35.0); MCHC 34.3 g/dL (31.0-37.0); MCV 92.3 fL (80.0-100.0); Mean Platelet Volume 8.8; Monocytes # (A) 0.7 k/uL (0-1.0); Monocytes % (A) 6 %; Neutrophils # (A) 9.5 k/uL (1.3-7.7); Neutrophils % (A) 88 %; Platelet Count 253 k/uL (150-450); RBC 4.75 m/uL (4.30-5.90); RDW 13.2 % (11.5-15.5); WBC 10.8 k/uL (3.8-10.6)
[2020-06-14 07:23] LABS: Glucose,Whole Blood 85 mg/dL (75-99)
[2020-06-14] MEDS: INSULIN ASPART (NovoLOG) 100 UNIT/ML VIAL SQ SCH ×2 (08:57→11:45)
[2020-06-14] MEDS: LORazepam 0.5 MG TAB PO SCH (09:22)
[2020-06-14] MEDS: HYDROcodone/APAP 5-325MG 1 EACH TAB PO SCH ×2 (09:22→14:47)
[2020-06-14] MEDS: ZINC SULFATE 220 MG CAP PO SCH (09:23)
[2020-06-14] MEDS: ASCORBIC ACID 500 MG TAB PO SCH (09:23)
[2020-06-14] MEDS: SODIUM BICARBONATE TAB 650 MG TAB PO SCH (09:23)
[2020-06-14] MEDS: HEPARIN SODIUM,PORCINE 5,000 UNIT/ML 1 ML VIAL SQ SCH (09:23)
[2020-06-14] MEDS: dexAMETHasone 2 MG TAB PO SCH (09:23)
[2020-06-14] MEDS: amLODIPine 10 MG TAB PO SCH (09:23)
[2020-06-14] MEDS: CHOLECALCIFEROL 1,000 UNIT TAB PO SCH (09:23)
[2020-06-14] MEDS: SODIUM CHLORIDE 0.9% 1,000 ML IV SCH (09:24)
[2020-06-14 09:27] VITALS: BP 141/89; PULSE 87; TEMP 97.6
[2020-06-14 09:43] LABS: African American GFR (CKD) 75.2 (60.0-200.0); Anion Gap 10.1 mmol/L (4.00-12.00); BUN/Creat Ratio 25.45 Ratio (12.00-20.00); Calcium 8.8 mg/dL (8.7-10.3); Carbon Dioxide 17.9 mmol/L (21.6-31.8); Non-African American GFR(CKD) 64.9 (60.0-200.0); Potassium 4.8 mmol/L (3.5-5.5)
[2020-06-14 11:40] LABS: Glucose,Whole Blood 109 mg/dL (75-99)
[2020-06-14] MEDS ORDERED: SODIUM BICARB 8.4% 50 ML SYR (1 MEQ/ML) IV STA (12:06)
--- NOTE | 2020-06-14 12:33 | P.DS ---
Providers Date of admission: 06/09/20 06:14 Expected date of discharge: 06/14/20 Attending physician: Michi Sullivan Consults: 06/09/20 06:15 Consult Physician Routine Consulting Provider: Vivian Laughlin Consult Reason/Comments: covidHypoxia Do you want consulting provider notified?: Yes Consult Physician Urgent Consulting Provider: Jory Vasquez Consult Reason/Comments: arf Do you want consulting provider notified?: Yes 06/09/20 12:06 Consult Physician Routine Consulting Provider: Pradeep Macias Consult Reason/Comments: COVID + Do you want consulting provider notified?: Yes 06/09/20 16:27 Consult Physician Urgent Consulting Provider: Shelton Bravo Consult Reason/Comments: ELEVATED TROPS Do you want consulting provider notified?: Yes Primary care physician: Jordi Oliver [facility] Course: Final diagnosis Acute code with 19 infection with bilateral interstitial pneumonia, right more than left with possible sepsis, present on admission Possible superadded bacterial pneumonia Increased white blood count Elevated d-dimer with no evidence of pulmonary embolism, low probability VQ scan Acute renal failure with possible acute tubular necrosis with prerenal factors Hyperkalemia from renal failure Elevated ferritin Increased AST Increased LDH Increased CRP Elevated inflammatory markers of Covid 19 History of CVA, TIA Dementia Gastroesophageal reflux disease Hypertension Hyperlipidemia history of vascular dementia History of degenerative joint disease History of coronary artery disease, CABG, stent history of anxiety Full code Discharge disposition Patient is being discharged in a stable condition with guarded prognosis to [facility]. Patient will follow-up with Dr. Oliver upon discharge. Patient will continue with a short course of oral antibiotics in the form of Ceftin 500 mg twice daily next 4 days to complete the course. Patient will also continue with dexamethasone 6 mg daily for the next 4 days to complete the course. Total time taken is greater than 35 minutes. History of present illness This is an 75-year-old male who was recently admitted with acute code with 19 pneumonia and was being closely monitored. Chest x-ray showed bilateral interstitial pneumonia as well as bacterial pneumonia and was placed on IV antibiotics. Infectious disease was following. Patient will continue with oral antibiotics in the form of Ceftin 500 mg twice daily for next 4 days to complete the course along with oral dexamethasone 6 mg daily. Currently no reports of chest pain, shortness of breath, or palpitations. Patient is afebrile. No reports of nausea or vomiting and patient is tolerating diet. Patient will be going to [facility]. Guarded prognosis. On exam vital signs are stable. Temp is 97.6F, pulse is 87, respirations are 18, blood pressure is 141/89, oxygen saturation is 92-94% on room air. Cardio S1, S2 are muffled. Respiratory shows diminished breath sounds at the bases with a few scattered rhonchi noted. Abdomen is soft and nontender. Nervous system shows mild diffuse weakness. Please refer to medication reconciliation sheet for a list of medications. Patient Condition at Discharge: Fair Plan - Discharge Summary Discharge Rx Participant: No New Discharge Prescriptions: New Cefuroxime Axetil [Ceftin] 500 mg PO BID 4 Days #8 tab dexAMETHasone [Hexadrol] 6 mg PO DAILY 4 Days #4 tab INSULIN ASPART (NovoLOG) [NovoLOG (formulary)] 0 unit SQ ACHS vial Zinc Sulfate [Orazinc] 220 mg PO DAILY cap Sodium Bicarbonate Tab 650 mg PO QID tab Ascorbic Acid [Vitamin C] 500 mg PO DAILY tab Continue Atorvastatin [Lipitor] 20 mg PO HS Pantoprazole Sodium [Protonix] 40 mg PO AC-SUPPER Artificial Tears-Hypromellose [Artificial Tear Drops] 2 drops BOTH EYES Q8H PRN PRN Reason: Dry Eye(S) Magnesium Hydroxide [Milk of Magnesia] 2,400 mg PO Q72H PRN PRN Reason: Constipation Albuterol Sulfate [Proair Respiclick] 2 puff INHALATION RT-Q4H PRN PRN Reason: Shortness Of Breath polyethylene glycoL 3350 [Miralax] 17 gram PO DAILY@1600 Donepezil [Aricept] 2.5 mg PO HS amLODIPine [Norvasc] 10 mg PO DAILY Aspirin EC [Ecotrin Low Dose] 81 mg PO HS Acetaminophen Tab [Tylenol] 650 mg PO Q6H PRN PRN Reason: Pain Mag Hydrox/Aluminum Hyd/Simeth [Mylanta Maximum Strength Liq] 30 ml PO Q6H PRN PRN Reason: Indigestion traZODone HCL 150 mg PO HS@2000 Cholecalciferol [Vitamin D3 (25 Mcg = 1000 Iu)] 3,000 unit PO DAILY LORazepam [Ativan] 1 mg PO DAILY@1700 #4 tab LORazepam [Ativan] 0.5 mg PO TID@0000,0700,1600 #6 tab HYDROcodone/APAP 5-325MG [[place] 5-325] 1 tab PO Q8H PRN #10 tab PRN Reason: Pain HYDROcodone/APAP 5-325MG [[place] 5-325] 1 tab PO TID@0700,1300,1900 #12 tab Discontinued Torsemide [Demadex] 40 mg PO DIRECTED Potassium Chloride 8 meq PO BID Spironolactone [Aldactone] 25 mg PO DAILY Discharge Medication List Atorvastatin [Lipitor] 20 mg PO HS 02/15/18 [History] Pantoprazole Sodium [Protonix] 40 mg PO AC-SUPPER 02/15/18 [History] Albuterol Sulfate [Proair Respiclick] 2 puff INHALATION RT-Q4H PRN 03/26/19 [History] Artificial Tears-Hypromellose [Artificial Tear Drops] 2 drops BOTH EYES Q8H PRN 03/26/19 [History] Aspirin EC [Ecotrin Low Dose] 81 mg PO HS 03/26/19 [History] Donepezil [Aricept] 2.5 mg PO HS 03/26/19 [History] Magnesium Hydroxide [Milk of Magnesia] 2,400 mg PO Q72H PRN 03/26/19 [History] amLODIPine [Norvasc] 10 mg PO DAILY 03/26/19 [History] polyethylene glycoL 3350 [Miralax] 17 gram PO DAILY@1600 03/26/19 [History] Acetaminophen Tab [Tylenol] 650 mg PO Q6H PRN 06/09/20 [History] Cholecalciferol [Vitamin D3 (25 Mcg = 1000 Iu)] 3,000 unit PO DAILY 06/09/20 [History] Mag Hydrox/Aluminum Hyd/Simeth [Mylanta Maximum Strength Liq] 30 ml PO Q6H PRN 06/09/20 [History] traZODone HCL 150 mg PO HS@2000 06/09/20 [History] Ascorbic Acid [Vitamin C] 500 mg PO DAILY tab 06/14/20 [Rx] Cefuroxime Axetil [Ceftin] 500 mg PO BID 4 Days #8 tab 06/14/20 [Rx] HYDROcodone/APAP 5-325MG [[place] 5-325] 1 tab PO Q8H PRN #10 tab 06/14/20 [Rx] HYDROcodone/APAP 5-325MG [[place] 5-325] 1 tab PO TID@0700,1300,1900 #12 tab 06/14/20 [Rx] INSULIN ASPART (NovoLOG) [NovoLOG (formulary)] 0 unit SQ ACHS vial 06/14/20 [Rx] LORazepam [Ativan] 0.5 mg PO TID@0000,0700,1600 #6 tab 06/14/20 [Rx] LORazepam [Ativan] 1 mg PO DAILY@1700 #4 tab 06/14/20 [Rx] Sodium Bicarbonate Tab 650 mg PO QID tab 06/14/20 [Rx] Zinc Sulfate [Orazinc] 220 mg PO DAILY cap 06/14/20 [Rx] dexAMETHasone [Hexadrol] 6 mg PO DAILY 4 Days #4 tab 06/14/20 [Rx] Follow up Appointment(s)/Referral(s): Jordi Oliver MD [Primary Care Provider] - 1-2 days [facility], [NON-STAFF] - As Needed Ambulatory/Diagnostic Orders: Basic Metabolic Panel [LAB.AMB] Time Frame: 3 Days, Location: None Selected Complete Blood Count w/diff [LAB.AMB] Time Frame: 3 Days, Location: None Selected Activity/Diet/Wound Care/Special Instructions: Patient is going to [facility] Activity as tolerated Continue dexamethasone for the next 4 days and then may discontinue Continue with antibiotics for the next 4 days and then may discontinue Continue holding diuretics until follow-up Repeat CBC and BMP in 2-3 days Continue monitoring blood sugars before meals and at bedtime and treat accordingly with sliding scale Discharge Disposition: TRANSFER TO SNF/ECF
--- NOTE | 2020-06-14 12:48 | P.PN ---
Subjective Patient is seen in follow-up for acute kidney injury. Renal function continues to improve. Currently on room air. Denies chest pain or shortness of breath. Blood pressure stable. Vital signs are stable. General: The patient appeared well nourished and normally developed. HEENT: Head exam is unremarkable. Neck is without jugular venous distension. LUNGS: Breath sounds decreased. HEART: Rate and Rhythm are regular. ABDOMEN: Soft, nontender. EXTREMITITES: No edema. Objective - Vital Signs Vital signs: Vital Signs Temp 97.6 F 06/14/20 09:26 Pulse 87 06/14/20 09:26 Resp 18 06/14/20 09:26 BP 141/89 06/14/20 09:26 Pulse Ox 92 L 06/14/20 09:26 Intake & Output 06/13/20 06/14/20 06/14/20 18:59 06:59 18:59 Intake Total 50 Output Total 1150 1325 Balance -1100 -1325 Intake: Intake, IV Titration 50 Amount cefTRIAXone 1 gm In 50 Sodium Chloride 0.9% 50 ml @ 100 mls/hr IVPB Q24H [facility] Rx#:[id number] Output: Urine 1150 1325 Other: Voiding Method Diaper Diaper External Catheter Incontinent Incontinent External Catheter External Catheter - Labs CBC & Chem 7: 06/14/20 05:44 06/14/20 05:44 Labs: Abnormal Lab Results - Last 24 Hours (Table) 06/13/20 06/13/20 06/14/20 Range/Units 16:25 20:15 05:44 WBC 10.8 H (3.8-10.6) k/uL Neutrophils # 9.5 H (1.3-7.7) k/uL Lymphocytes # 0.5 L (1.0-4.8) k/uL Chloride (96-109) mmol/L Carbon Dioxide (21.6-31.8) mmol/L BUN (9.0-27.0) mg/dL BUN/Creatinine Ratio (12.00-20.00) Ratio POC Glucose (mg/dL) 118 H 104 H (75-99) mg/dL 06/14/20 06/14/20 Range/Units 05:44 11:37 WBC (3.8-10.6) k/uL Neutrophils # (1.3-7.7) k/uL Lymphocytes # (1.0-4.8) k/uL Chloride 111 H (96-109) mmol/L Carbon Dioxide 17.9 L (21.6-31.8) mmol/L BUN 28.0 H (9.0-27.0) mg/dL BUN/Creatinine Ratio 25.45 H (12.00-20.00) Ratio POC Glucose (mg/dL) 109 H (75-99) mg/dL Microbiology - Last 24 Hours (Table) 06/09/20 05:08 Blood Culture - Preliminary Blood No Growth after 120 hours 06/09/20 05:03 Blood Culture - Preliminary Blood No Growth after 120 hours 06/11/20 18:24 Blood Culture - Preliminary Blood No Growth after 48 hours Assessment and Plan Plan: Assessment: 1. Acute kidney injury mostly prerenal secondary to infection. Renal function improving. Creatinine 1.1 today. 2. Chronic kidney disease. Establish baseline renal function. Etiology is likely nephrosclerosis. 3. COVID-19 pneumonia maintained on steroids and zinc. 4. Metabolic acidosis secondary to acute kidney injury and IV fluids maintained on oral bicarb. 5. Hypertension with chronic kidney disease. Controlled. Plan: Hep-Lock IV fluids. Encouraged oral intake. Decrease bicarb to 650 mg twice daily. Avoid nephrotoxins. Follow up outpatient in 2 weeks.
--- NOTE | 2020-06-14 13:19 | PN ---
PROGRESS NOTE DATE OF SERVICE: 06/14/2020 REASON FOR FOLLOWUP: Pneumonia. INTERVAL HISTORY: The patient is currently afebrile. The patient is breathing comfortably, currently on room air. He is more awake and alert. Denies any chest pain or cough. No abdominal pain or diarrhea has been reported. PHYSICAL EXAMINATION: Blood pressure 141/89 with a pulse of 87, temperature 97.6. He is 92% on room air. General description is an elderly male lying in bed in no distress. RESPIRATORY SYSTEM: Unlabored breathing, decreased intensity of breath sounds. No wheeze. HEART: S1, S2. Regular rate and rhythm. ABDOMEN: Soft, no tenderness. LABS: Hemoglobin 15, white count 10.8, BUN of 28, creatinine 1.1. DIAGNOSTIC IMPRESSION AND PLAN: Patient admitted to the hospital with pneumonia with COVID positive. Patient being treated supportively possible component of bacterial. Will finish therapy with short course of oral Ceftin. Close outpatient followup. MMODL / IJN: [id number] / MTDGene
--- NOTE | 2020-06-14 14:52 | P.PN ---
Subjective Progress Note Date: 06/14/20 Principal diagnosis: Acute hypoxic rest pelvis security to covid19 pneumonia This is a 75-year-old male patient with a history of previous CVA/TIA, gastroesophageal reflux disease, hyperlipidemia, hypertension, dementia. He was tested positive for CoVID 19 in the outpatient setting he was developing increasing shortness of breath and hypoxemia and seen in the emergency room prachi woodard this morning for the same. Chest x-ray revealed patchy retrocardiac opacity possible aspiration versus infection. White count 11.1. Hemoglobin 16.0. Lymphocytes 0.2. D-dimer 1.00. INR 1.1. Sodium 134. Potassium 5.5. Creatinine 2.38. Ferritin 1248. LDH 1173. C-reactive proteins 67.6. VQ scan revealed low probability for pulmonary embolus. He did receive Lovenox. Initiated on dexamethasone. He is seen today in consultation on the regular medical floor. He is currently awake and alert. Continue O2 saturations in the 90s on 3 L/m per nasal cannula. He is afebrile. Swallow evaluation in progress. The patient is a poor historian. The patient is seen today 06/10/2020 in follow-up on the regular medical floor. He is currently resting in bed. Awake and alert in no acute distress. Maintaining O2 saturations in the 90s on 2 L/m per nasal cannula. He is currently afebrile. Blood cultures reveal no growth. White count 5.0. Hemoglobin 15.0. Lymphocytes 0.3. D-dimer 0.68. Glucose 111. He is currently on dexamethasone. Heparin subcutaneous for DVT prophylaxis. Vitamin supplements. The patient is seen today 06/11/2019 in follow-up on the regular medical floor. He is awake and alert. Resting comfortably in bed. Currently maintaining O2 saturations in the low 90s on room air. Afebrile. Hemodynamically stable. White count 11.7. Hemoglobin 14.3. Lymphocytes 0.5. D-dimer 0.7. Sodium 140. Potassium 4.9. Creatinine 1.3. Protein 2.3. He remains on dexamethasone, Heparin subcutaneous for DVT prophylaxis. Vitamin supplements. The patient is seen today 06/12/2019 in follow-up on the regular medical floor. He is currently resting comfortably in bed. Awake and alert in no acute distress. Maintaining O2 saturations in the low 90s on room air. He's been afebrile. Hemodynamically stable. The cultures reveal no growth. White count 12.9. Hemoglobin 14.8. Lymphocytes 0.4. D-dimer 0.88. Sodium 141. Potassium 5.3. Creatinine 1.4. C-reactive protein 0.9. Pro-Calcitonin 0.14. Chest x- ray continues show chronic changes with multifocal bilateral lower lung acute infiltrates consistent with CoVID 19 infection. No significant change compared to previous. He remains on dexamethasone, Heparin subcutaneous for DVT prophylaxis. Vitamin supplements. The patient is seen today 06/13/2019 in follow-up on the regular medical floor. He is awake and alert in no acute distress. Maintaining O2 saturations in the 90s on room air. 0.9 normal saline at 75 ML's per hour. He is confused. He is a poor historian. Blood glucose 103. He remains on dexamethasone. Heparin subcu for DVT prophylaxis. Vitamin supplements. On 06/14/2020 patient seen in follow-up on the regular medical floor, he is awake and alert, in no acute distress, she is on room air, he is breathing comfortably, his pulse ox is 92%. He remains on oral Decadron, had no acute events overnight, no complete chest discomfort or cough, nausea vomiting or diarrhea. His been on Rocephin for empiric antibiotic coverage. Cultures have been negative, his had no fevers. His labs have been reviewed. Renal profile has improved since admission, his sodium is 139, potassium is 4.8, his white blood cell count is 10.8, his lymphocyte count is 0.5 Objective - Vital Signs Vital signs: Vital Signs Temp 97.6 F 06/14/20 09:26 Pulse 87 06/14/20 09:26 Resp 18 06/14/20 09:26 BP 141/89 06/14/20 09:26 Pulse Ox 92 L 06/14/20 09:26 Intake & Output 06/13/20 06/14/20 06/14/20 18:59 06:59 18:59 Intake Total 50 Output Total 1150 1325 Balance -1100 -1325 Weight 90.718 kg Intake: Intake, IV Titration 50 Amount cefTRIAXone 1 gm In 50 Sodium Chloride 0.9% 50 ml @ 100 mls/hr IVPB Q24H [facility] Rx#:[id number] Output: Urine 1150 1325 Other: Voiding Method Diaper Diaper External Catheter Incontinent Incontinent External Catheter External Catheter - Exam GENERAL EXAM: Alert, pleasant, 75-year-old white male, 2 L of oxygen a pulse ox of 92% comfortable in no apparent distress. HEAD: Normocephalic/atraumatic. EYES: Normal reaction of pupils, equal size. Conjunctiva pink, sclera white. NOSE: Clear with pink turbinates. THROAT: No erythema or exudates. NECK: No masses, no JVD, no thyroid enlargement, no adenopathy. CHEST: No chest wall deformity. Symmetrical expansion. LUNGS: Equal air entry with no crackles, wheeze, rhonchi or dullness. CVS: Regular rate and rhythm, normal S1 and S2, no gallops, no murmurs, no rubs ABDOMEN: Soft, nontender. No hepatosplenomegaly, normal bowel sounds, no guarding or rigidity. EXTREMITIES: No clubbing, no edema, no cyanosis, 2+ pulses and upper and lower extremities. MUSCULOSKELETAL: Muscle strength and tone normal. SPINE: No scoliosis or deformity SKIN: No rashes CENTRAL NERVOUS SYSTEM: Alert and oriented -2. No focal deficits, tone is normal in all 4 extremities. PSYCHIATRIC: Alert and oriented -2. Appropriate affect. Intact judgment and insight. - Labs CBC & Chem 7: 06/14/20 05:44 06/14/20 05:44 Labs: Abnormal Lab Results - Last 24 Hours (Table) 06/13/20 06/13/20 06/14/20 Range/Units 16:25 20:15 05:44 WBC 10.8 H (3.8-10.6) k/uL Neutrophils # 9.5 H (1.3-7.7) k/uL Lymphocytes # 0.5 L (1.0-4.8) k/uL Chloride (96-109) mmol/L Carbon Dioxide (21.6-31.8) mmol/L BUN (9.0-27.0) mg/dL BUN/Creatinine Ratio (12.00-20.00) Ratio POC Glucose (mg/dL) 118 H 104 H (75-99) mg/dL 06/14/20 06/14/20 Range/Units 05:44 11:37 WBC (3.8-10.6) k/uL Neutrophils # (1.3-7.7) k/uL Lymphocytes # (1.0-4.8) k/uL Chloride 111 H (96-109) mmol/L Carbon Dioxide 17.9 L (21.6-31.8) mmol/L BUN 28.0 H (9.0-27.0) mg/dL BUN/Creatinine Ratio 25.45 H (12.00-20.00) Ratio POC Glucose (mg/dL) 109 H (75-99) mg/dL Microbiology - Last 24 Hours (Table) 06/09/20 05:08 Blood Culture - Preliminary Blood No Growth after 120 hours 06/09/20 05:03 Blood Culture - Preliminary Blood No Growth after 120 hours 06/11/20 18:24 Blood Culture - Preliminary Blood No Growth after 48 hours Assessment and Plan Plan: Assessment: #1. Acute hypoxic rest or a failure secondary to cold 19 pneumonia, improving, and patient is currently on room air. Was treated conservatively with oral Decadron and supplements #2. Elevated inflammatory markers second to the above #3. History of dementia #4. History of CVA/TIA #5. GERD/reflux #6. Hyperlipidemia #7. Hypertension Plan: Patient is doing well, improving, he remains on room air, vital signs have been stable through the night, no acute events, patient is being discharged to [facility] today, from pulmonary perspective patient is stable for discharge on course of oral Decadron for a total of 10 days. I performed a history & physical examination of the patient and discussed their management with my nurse practitioner, Delia Reagan. I reviewed the nurse practitioner's note and agree with the documented findings and plan of care. Lung sounds are positive for diminished breath sounds The findings and the impression was discussed with the patient. I attest to the documentation by the nurse practitioner. Time with Patient: Less than 30
[2020-06-14] MEDS ORDERED: SODIUM BICARBONATE TAB 650 MG TAB PO SCH (21:00)
== END 2020-06-14 14:44 | DRG 871 ==
LOC: EC 04:39 → 4SSUR 06:14
PROVIDERS: ADMIT Hospitalist; ATTEND Hospitalist
DX: A41.89 Other specified sepsis (principal); U07.1 COVID-19; J12.82 Pneumonia due to coronavirus disease 2019; J96.01 Acute respiratory failure with hypoxia; N17.0 Acute kidney failure with tubular necrosis; J15.9 Unspecified bacterial pneumonia; E87.2 Acidosis; E83.41 Hypermagnesemia; F01.50 Vascular dementia, unspecified severity, without behavioral disturbance, psychotic disturbance, mood disturbance, and anxiety; D72.810 Lymphocytopenia; E78.5 Hyperlipidemia, unspecified; E86.9 Volume depletion, unspecified; E87.5 Hyperkalemia; I12.9 Hypertensive chronic kidney disease with stage 1 through stage 4 chronic kidney disease, or unspecified chronic kidney disease; I25.10 Atherosclerotic heart disease of native coronary artery without angina pectoris; K21.9 Gastro-esophageal reflux disease without esophagitis; N18.30 Chronic kidney disease, stage 3 unspecified; T38.0X5A Adverse effect of glucocorticoids and synthetic analogues, initial encounter; R26.9 Unspecified abnormalities of gait and mobility; M25.562 Pain in left knee; M25.561 Pain in right knee; M54.9 Dorsalgia, unspecified; G89.29 Other chronic pain; R26.81 Unsteadiness on feet; Z79.52 Long term (current) use of systemic steroids; Z79.899 Other long term (current) drug therapy; Z86.73 Personal history of transient ischemic attack (TIA), and cerebral infarction without residual deficits; Z87.01 Personal history of pneumonia (recurrent); Z95.1 Presence of aortocoronary bypass graft; Z95.5 Presence of coronary angioplasty implant and graft
CPT/HCPCS: 36415; 71045; 71250; 78580; 80048; 80053; 81001; 82728; 83605; 83615; 83735; 83880; 84145; 84484; 85025; 85379; 85610; 85730; 86140; 87040; 93005; 93970; 99291

== ENCOUNTER 2021-06-20 15:49 | Emergency (ER) | payer MEDICARE, OTHER ==
[2021-06-20] MEDS ORDERED: SODIUM CHLORIDE 0.9% 500 ML 500 ML IV STA (16:09)
[2021-06-20] MEDS ORDERED: SODIUM CHLORIDE 0.9% 1,000 ML IV STA (16:09)
[2021-06-20 16:18] VITALS: TEMP 98.3
[2021-06-20 16:44] LABS: Basophils % (A) 0 %; Eosinophils # (A) 0.1 k/uL (0-0.7); Eosinophils % (A) 1 %; HCT 42.6 % (39.0-53.0); HGB 14.1 gm/dL (13.0-17.5); Lymphocytes # (A) 0.9 k/uL (1.0-4.8); Lymphocytes % (A) 9 %; MCH 31.8 pg (25.0-35.0); MCHC 33.2 g/dL (31.0-37.0); Mean Platelet Volume 8.9; Monocytes # (A) 0.9 k/uL (0-1.0); Monocytes % (A) 9 %; Neutrophils # (A) 8.4 k/uL (1.3-7.7); Neutrophils % (A) 80 %; Platelet Count 172 k/uL (150-450); RBC 4.43 m/uL (4.30-5.90); RDW 12.7 % (11.5-15.5); WBC 10.4 k/uL (3.8-10.6)
[2021-06-20 16:52] LABS: INR 1.1 (<1.2); Partial Thromboplastin Time 24.3 sec (22.0-30.0); Prothrombin Time 11.2 sec (9.0-12.0)
[2021-06-20 16:53] LABS: Appearance,Urine Clear (Clear); Bacteria,Urine Rare /hpf; Bilirubin,Urine Negative (Negative); Blood,Urine Trace (Negative); Color,Urine Light Yellow; Glucose,Urine (UA) Negative (Negative); Ketones,Urine Negative (Negative); Leukocyte Esterase,Urine Negative (Negative); Mucus,Urine Rare /hpf; Nitrite,Urine Negative (Negative); Protein,Urine Trace (Negative); RBC,Urine 1 /hpf (0-5); Urobilinogen,Urine <2.0 mg/dL (<2.0); WBC,Urine <1 /hpf (0-5)
[2021-06-20 16:56] LABS: Albumin 4.2 g/dL (3.5-5.0); Calcium 9.8 mg/dL (8.4-10.2); Potassium 4.2 mmol/L (3.5-5.1); Total Bilirubin 0.9 mg/dL (0.2-1.3); Total Protein 7.7 g/dL (6.3-8.2)
--- NOTE | 2021-06-20 17:10 | ED ---
General Adult HPI - General Chief complaint: Fall Stated complaint: hypertension Time Seen by Provider: 06/20/21 16:02 Source: patient, EMS Mode of arrival: EMS Limitations: physical limitation - History of Present Illness Initial comments: This 76-year-old demented male presents for evaluation from the ECF. He apparently fell 3 times today which is abnormal for him. All history is essentially obtained per EMS as well as ECF records. The patient apparently has been incontinent of urine and stool. The patient is demented and it is difficult to obtain any relevant history from him. He is denying any traumatic injuries other than a mild right arm abrasion. He does not remember hitting his head. He denies any chest pain, shortness breath, cough, difficulty breathing, fevers, chills. Once again, history is somewhat limited due to patient's dementia. - Related Data Home Medications Medication Instructions Recorded Confirmed Atorvastatin [Lipitor] 20 mg PO HS 02/15/18 06/09/20 Pantoprazole Sodium [Protonix] 40 mg PO AC-SUPPER 02/15/18 06/09/20 Albuterol Sulfate [Proair 2 puff INHALATION RT-Q4H PRN 03/26/19 06/09/20 Respiclick] Artificial Tears-Hypromellose 2 drops BOTH EYES Q8H PRN 03/26/19 06/09/20 [Artificial Tear Drops] Aspirin EC [Ecotrin Low Dose] 81 mg PO HS 03/26/19 06/09/20 Donepezil [Aricept] 2.5 mg PO HS 03/26/19 06/09/20 Magnesium Hydroxide [Milk of 2,400 mg PO Q72H PRN 03/26/19 06/09/20 Magnesia] amLODIPine [Norvasc] 10 mg PO DAILY 03/26/19 06/09/20 polyethylene glycoL 3350 [Miralax] 17 gram PO DAILY@1600 03/26/19 06/09/20 Acetaminophen Tab [Tylenol] 650 mg PO Q6H PRN 06/09/20 06/09/20 Cholecalciferol [Vitamin D3 (25 3,000 unit PO DAILY 06/09/20 06/09/20 Mcg = 1000 Iu)] Mag Hydrox/Aluminum Hyd/Simeth 30 ml PO Q6H PRN 06/09/20 06/09/20 [Mylanta Maximum Strength Liq] traZODone HCL 150 mg PO HS@199906/09/20 06/09/20 Previous Rx's Medication Instructions Recorded Ascorbic Acid [Vitamin C] 500 mg PO DAILY tab 06/14/20 Cefuroxime Axetil [Ceftin] 500 mg PO BID 4 Days #8 tab 06/14/20 HYDROcodone/APAP 5-325MG [[place] 1 tab PO Q8H PRN #10 tab 06/14/20 5-325] HYDROcodone/APAP 5-325MG [[place] 1 tab PO TID@0700,1300,1900 #12 tab 06/14/20 5-325] INSULIN ASPART (NovoLOG) [NovoLOG 0 unit SQ ACHS vial 06/14/20 (formulary)] LORazepam [Ativan] 0.5 mg PO TID@0000,0700,1600 #6 tab 06/14/20 LORazepam [Ativan] 1 mg PO DAILY@1700 #4 tab 06/14/20 Sodium Bicarbonate Tab 650 mg PO QID tab 06/14/20 Zinc Sulfate [Orazinc] 220 mg PO DAILY cap 06/14/20 dexAMETHasone ORAL [Hexadrol] 6 mg PO DAILY 4 Days #4 tab 06/14/20 Allergies Allergy/AdvReac Type Severity Reaction Status Date / Time cat dander Allergy Dyspnea Verified 06/20/21 16:18 Review of Systems ROS Statement: Those systems with pertinent positive or pertinent negative responses have been documented in the HPI. ROS Other: All systems not noted in ROS Statement are negative. Past Medical History Past Medical History: CVA/TIA, Dementia, GERD/Reflux, Hyperlipidemia, Hyperten christina Additional Past Medical History / Comment(s): Per [facility] pt had +rapid covid test on 06/01/20 and + covid throat swab on 06/03/20. Other hx: Vascular dementia, TIA, chronic pain bilateral knees and back, unsteady gait, muscle weakness, falls, bilateral leg edema, anemia History of Any Multi-Drug Resistant Organisms: None Reported Past Surgical History: Coronary Bypass/CABG, Heart Catheterization, Heart Catheterization With Stent Additional Past Surgical History / Comment(s): [facility]o believes pt has 1-2 vessel CABG approximately 8-10 yrs ago in [place] and has had PCI/stent but salo does not know date. Past Anesthesia/Blood Transfusion Reactions: No Reported Reaction Date of Last Stent Placement:: unkn Past Psychological History: Anxiety Smoking Status: Never smoker Past Alcohol Use History: None Reported Past Drug Use History: None Reported - Past Family History Father History Unknown: Yes Mother History Unknown: Yes General Exam - General Exam Comments Initial Comments: GENERAL: The patient is well nourished and well hydrated. VITAL SIGNS: Heart rate, blood pressure, respiratory rate reviewed as recorded in nurse's notes. EYES: Pupils are round and reactive. Extraocular movements are intact. No conjunctival / lid redness or swelling. ENT: No external evidence of injury, swelling, or ecchymosis. Airway is patent. Throat is clear. NECK: Nontender. No swelling or evidence of injury. No subcutaneous emphysema. Trachea is midline. No thyroid mass. HEART: Regular rate and rhythm. Good peripheral pulses. LUNGS/CHEST: Breath sounds clear and equal bilaterally. No rales, rhonchi, or wheezes. No ecchymosis, subcutaneous emphysema, or tenderness. ABDOMEN: Abdomen soft without tenderness. No palpable masses or organomegaly. No peritoneal signs. No abdominal wall swelling or ecchymosis. EXTREMITIES: No extremity tenderness. Normal muscle tone and function. No thoracolumbar tenderness. NEUROLOGIC: Sensation is grossly intact. Cranial nerve exam reveals face is symmetrical, tongue is midline, speech is clear. SKIN: Mild abrasion noted to the right forearm. PSYCHIATRIC: Alert and pleasant but significantly demented. Limitations: physical limitation Course Vital Signs 06/20/21 06/20/21 16:06 17:18 Temperature 98.3 F Pulse Rate 79 89 Respiratory 18 16 Rate Blood Pressure 141/85 151/101 O2 Sat by Pulse 96 96 Oximetry Medical Decision Making - Medical Decision Making The patient was seen and examined. All diagnostics are reviewed. EKG shows a normal sinus rhythm at a rate of 80. Multiple PVCs are noted. VT interval is 270, QRS duration is 88, and QTC intervals 468. No ST elevation identified. The laboratory does not show any overt significant abnormalities. There is no evidence of urinary tract infection. Computed tomography scan of the brain was done as it is difficult to exclude a head injury due to patient's dementia and history of recent falls. The computed tomography scan of the brain does not show any acute abnormalities as well. The exact cause of patient's multiple falls is not definitively determined. Nevertheless, it is not felt as though he would require admission to the hospital for any reason. He will be returned to the ECF. - Lab Data Result diagrams: 06/20/21 16:34 06/20/21 16:34 Lab Results 06/20/21 06/20/21 06/20/21 Range/Units 16:34 16:34 16:34 WBC 10.4 (3.8-10.6) k/uL RBC 4.43 (4.30-5.90) m/uL Hgb 14.1 (13.0-17.5) gm/dL Hct 42.6 (39.0-53.0) % MCV 96.0 (80.0-100.0) fL MCH 31.8 (25.0-35.0) pg MCHC 33.2 (31.0-37.0) g/dL RDW 12.7 (11.5-15.5) % Plt Count 172 (150-450) k/uL MPV 8.9 Neutrophils % 80 % Lymphocytes % 9 % Monocytes % 9 % Eosinophils % 1 % Basophils % 0 % Neutrophils # 8.4 H (1.3-7.7) k/uL Lymphocytes # 0.9 L (1.0-4.8) k/uL Monocytes # 0.9 (0-1.0) k/uL Eosinophils # 0.1 (0-0.7) k/uL Basophils # 0.0 (0-0.2) k/uL PT 11.2 (9.0-12.0) sec INR 1.1 (<1.2) APTT 24.3 (22.0-30.0) sec Sodium (137-145) mmol/L Potassium (3.5-5.1) mmol/L Chloride (98-107) mmol/L Carbon Dioxide (22-30) mmol/L Anion Gap mmol/L BUN (9-20) mg/dL Creatinine (0.66-1.25) mg/dL Est GFR (CKD-EPI)AfAm (>60 ml/min/1.73 sqM) Est GFR (CKD-EPI)NonAf (>60 ml/min/1.73 sqM) Glucose (74-99) mg/dL Calcium (8.4-10.2) mg/dL Phosphorus (2.5-4.5) mg/dL Magnesium (1.6-2.3) mg/dL Total Bilirubin (0.2-1.3) mg/dL AST (17-59) U/L ALT (4-49) U/L Alkaline Phosphatase (38-126) U/L Total Protein (6.3-8.2) g/dL Albumin (3.5-5.0) g/dL TSH (0.465-4.680) mIU/L Urine Color Light Yellow Urine Appearance Clear (Clear) Urine pH 7.0 (5.0-8.0) Ur Specific [place] 1.010 (1.001-1.035) Urine Protein Trace H (Negative) Urine Glucose (UA) Negative (Negative) Urine Ketones Negative (Negative) Urine Blood Trace H (Negative) Urine Nitrite Negative (Negative) Urine Bilirubin Negative (Negative) Urine Urobilinogen <2.0 (<2.0) mg/dL Ur Leukocyte Esterase Negative (Negative) Urine RBC 1 (0-5) /hpf Urine WBC <1 (0-5) /hpf Urine Bacteria Rare H (None) /hpf Urine Mucus Rare H (None) /hpf 06/20/21 Range/Units 16:34 WBC (3.8-10.6) k/uL RBC (4.30-5.90) m/uL Hgb (13.0-17.5) gm/dL Hct (39.0-53.0) % MCV (80.0-100.0) fL MCH (25.0-35.0) pg MCHC (31.0-37.0) g/dL RDW (11.5-15.5) % Plt Count (150-450) k/uL MPV Neutrophils % % Lymphocytes % % Monocytes % % Eosinophils % % Basophils % % Neutrophils # (1.3-7.7) k/uL Lymphocytes # (1.0-4.8) k/uL Monocytes # (0-1.0) k/uL Eosinophils # (0-0.7) k/uL Basophils # (0-0.2) k/uL PT (9.0-12.0) sec INR (<1.2) APTT (22.0-30.0) sec Sodium 140 (137-145) mmol/L Potassium 4.2 (3.5-5.1) mmol/L Chloride 106 (98-107) mmol/L Carbon Dioxide 26 (22-30) mmol/L Anion Gap 8 mmol/L BUN 16 (9-20) mg/dL Creatinine 1.10 (0.66-1.25) mg/dL Est GFR (CKD-EPI)AfAm 75 (>60 ml/min/1.73 sqM) Est GFR (CKD-EPI)NonAf 65 (>60 ml/min/1.73 sqM) Glucose 100 H (74-99) mg/dL Calcium 9.8 (8.4-10.2) mg/dL Phosphorus 3.0 (2.5-4.5) mg/dL Magnesium 2.0 (1.6-2.3) mg/dL Total Bilirubin 0.9 (0.2-1.3) mg/dL AST 45 (17-59) U/L ALT 15 (4-49) U/L Alkaline Phosphatase 56 (38-126) U/L Total Protein 7.7 (6.3-8.2) g/dL Albumin 4.2 (3.5-5.0) g/dL TSH 0.890 (0.465-4.680) mIU/L Urine Color Urine Appearance (Clear) Urine pH (5.0-8.0) Ur Specific [place] (1.001-1.035) Urine Protein (Negative) Urine Glucose (UA) (Negative) Urine Ketones (Negative) Urine Blood (Negative) Urine Nitrite (Negative) Urine Bilirubin (Negative) Urine Urobilinogen (<2.0) mg/dL Ur Leukocyte Esterase (Negative) Urine RBC (0-5) /hpf Urine WBC (0-5) /hpf Urine Bacteria (None) /hpf Urine Mucus (None) /hpf Disposition Clinical Impression: Fall, Weakness, Hypertension, Urinary incontinence, Dementia Disposition: HOME SELF-CARE Condition: Good Instructions (If sedation given, give patient instructions): Fall Prevention for Older Adults (ED) Is patient prescribed a controlled substance at d/c from ED?: No Referrals: Jordi Oliver MD [Primary Care Provider] - 1-2 days Time of Disposition: 18:01
--- NOTE | 2021-06-20 17:14 | CT ---
EXAM: CT brain wo con CLINICAL HISTORY: Weakness. COMPARISON: 03/26/2019 TECHNIQUE: Contiguous axial noncontrast images of the brain were obtained. Coronal and sagittal refor mats were generated and reviewed. Automated dose control was used for this exam. FINDINGS: There is no evidence for intracranial hemorrhage, mass effect or midline shift. There is mild white m atter disease and parenchymal volume loss. Ventricular size and configuration is within normal limits for degree of parenchymal volume. The paranasal sinuses are clear. The mastoid air cells are clear. No evidence for calvarial fracture. IMPRESSION: No acute intracranial abnormality.
[2021-06-20 17:42] VITALS: BP 151/101; PULSE 89; RESP 16
== END 2021-06-20 19:18 | disposition home or self-care (01) ==
LOC: EC 15:49
DX: S50.811A Abrasion of right forearm, initial encounter (principal); I10 Essential (primary) hypertension; F03.90 Unspecified dementia, unspecified severity, without behavioral disturbance, psychotic disturbance, mood disturbance, and anxiety; R32 Unspecified urinary incontinence; R53.1 Weakness; E78.5 Hyperlipidemia, unspecified; K21.9 Gastro-esophageal reflux disease without esophagitis; F41.9 Anxiety disorder, unspecified; Z79.4 Long term (current) use of insulin; Z79.899 Other long term (current) drug therapy; W18.39XA Other fall on same level, initial encounter
CPT/HCPCS: 36415; 70450; 80053; 81001; 83735; 84100; 84443; 85025; 85610; 85730; 93005; 99284

== ENCOUNTER 2023-11-02 17:15 | Emergency (ER) | payer MEDICARE, OTHER ==
--- NOTE | 2023-11-02 17:29 | ED ---
GI Bleed HPI - General Chief complaint: GI Bleed Stated complaint: GI issue Time Seen by Provider: 11/02/23 17:18 Source: EMS, RN notes reviewed, old records reviewed Mode of arrival: EMS Limitations: altered mental status, physical limitation - History of Present Illness Initial comments: This is a 78-year-old male post right upper GI bleed. Dark stools with low hemoglobin MD complaint: melena, blood streaked stool -: unknown Quality: painless Consistency: constant Improves with: none Worsens with: none Context: history of GI bleed, other (History of anemia) Associated Symptoms: denies other symptoms - Related Data Home Medications Medication Instructions Recorded Confirmed Donepezil [Aricept] 5 mg PO HS@199903/26/19 11/02/23 Magnesium Hydroxide [Milk of 2,400 mg PO DAILY PRN 03/26/19 11/02/23 Magnesia] amLODIPine [Norvasc] 10 mg PO DAILY@0700 03/26/19 11/02/23 polyethylene glycoL 3350 [Miralax] 17 gram PO HS 03/26/19 11/02/23 Acetaminophen Tab [Tylenol Tab] 500 mg PO BID 11/02/23 11/02/23 Atorvastatin [Lipitor] 40 mg PO HS@199911/02/23 11/02/23 DULoxetine HCL [Cymbalta] 60 mg PO HS 11/02/23 11/02/23 Docusate [Colace] 100 mg PO DAILY@0700 11/02/23 11/02/23 Famotidine [Pepcid] 10 mg PO DAILY@0500 11/02/23 11/02/23 HYDROcodone/APAP 5-325MG [[place] 1 tab PO Q6H 11/02/23 11/02/23 5-325] Health Shake 1 dose PO TID@0800,1200,1600 11/02/23 11/02/23 LORazepam [Ativan] 1 mg PO TID@0700,1300,1900 11/02/23 11/02/23 Melatonin 3 mg PO HS PRN 11/02/23 11/02/23 Memantine HCl [Namenda] 5 mg PO BID@0700,1600 11/02/23 11/02/23 Naloxone HCl [Narcan] 4 mg NASAL DIRECTED PRN 11/02/23 11/02/23 Naloxone [Narcan] 1 mg IM DIRECTED PRN 11/02/23 11/02/23 Ondansetron [Zofran] 4 mg PO Q6H PRN 11/02/23 11/02/23 traZODone HCL [Desyrel] 200 mg PO HS@199911/02/23 11/02/23 Allergies Allergy/AdvReac Type Severity Reaction Status Date / Time cat dander Allergy Dyspnea Verified 11/02/23 19:57 Review of Systems ROS Statement: Those systems with pertinent positive or pertinent negative responses have been documented in the HPI. ROS Other: All systems not noted in ROS Statement are negative. Past Medical History Past Medical History: CVA/TIA, Dementia, GERD/Reflux, Hyperlipidemia, Hypertension Additional Past Medical History / Comment(s): Per [facility] pt had +rapid covid test on 06/01/20 and + covid throat swab on 06/03/20. Other hx: Vascular dementia, TIA, chronic pain bilateral knees and back, unsteady gait, muscle weakness, falls, bilateral leg edema, anemia History of Any Multi-Drug Resistant Organisms: None Reported Past Surgical History: Coronary Bypass/CABG, Heart Catheterization, Heart Catheterization With Stent Additional Past Surgical History / Comment(s): Salo believes pt has 1-2 vesse l CABG approximately 8-10 yrs ago in [place] and has had PCI/stent but salo does not know date. Past Anesthesia/Blood Transfusion Reactions: No Reported Reaction Date of Last Stent Placement:: unkn Past Psychological History: Anxiety Smoking Status: Never smoker Past Alcohol Use History: None Reported Past Drug Use History: None Reported - Past Family History Father History Unknown: Yes Mother History Unknown: Yes General Exam General appearance: alert, in no apparent distress Head exam: Present: atraumatic, normocephalic, normal inspection Eye exam: Present: normal appearance, PERRL, EOMI. Absent: scleral icterus, conjunctival injection, periorbital swelling ENT exam: Present: normal exam, mucous membranes moist Neck exam: Present: normal inspection. Absent: tenderness, meningismus, lymphadenopathy Respiratory exam: Present: normal lung sounds bilaterally. Absent: respiratory distress, wheezes, rales, rhonchi, stridor Cardiovascular Exam: Present: regular rate, normal rhythm, normal heart sounds. Absent: systolic murmur, diastolic murmur, rubs, gallop, clicks GI/Abdominal exam: Present: soft, normal bowel sounds. Absent: distended, tenderness, guarding, rebound, rigid Extremities exam: Present: normal inspection, full ROM, normal capillary refill. Absent: tenderness, pedal edema, joint swelling, calf tenderness Back exam: Present: normal inspection Neurological exam: Present: alert, oriented X3, CN II-XII intact Psychiatric exam: Present: normal affect, normal mood Skin exam: Present: warm, dry, intact, normal color. Absent: rash Course Vital Signs 11/02/23 11/02/23 11/02/23 17:18 19:20 21:35 Temperature 99.9 F H Pulse Rate 50 L 86 75 Respiratory 18 18 16 Rate Blood Pressure 128/69 111/82 144/76 O2 Sat by Pulse 97 97 100 Oximetry - Reevaluation(s) Reevaluation #1: 11/02/23 17:28 Medical records reviewed Reevaluation #2: 11/02/23 17:28 Patient has no change in symptoms Reevaluation #3: 11/02/23 17:29 Patient informed of results questions answered Reevaluation #4: Was pt. sent in by a medical professional or institution (, PA, UPHOLSTERER HELPER, urgent care, hospital, or senior living...) When possible be specific @ -no Did you speak to anyone other than the patient for history (EMS, parent, family, police, friend...)? What history was obtained from this source @ -no Did you review nursing and triage notes (agree or disagree)? Why? @ -agree Are old charts reviewed (outside hosp., previous admission, EMS record, old EKG, old radiological studies, urgent care reports/EKG's, senior living records)? Report findings @ -yes Differential Diagnosis (chest pain, altered mental status, abdominal pain women, abdominal pain men, vaginal bleeding, weakness, fever, dyspnea, syncope, heada wilfredo, dizziness, GI bleed, back pain, seizure, CVA, palpatations, mental health, musculoskeletal)? @ -prior EKG interpreted by me (3pts min.). @ -no X-rays interpreted by me (1pt min.). @ -no CT interpreted by me (1pt min.). @ -no U/S interpreted by me (1pt. min.). @ -no What testing was considered but not performed or refused? (CT, X-rays, U/S, labs)? Why? @ -none What meds were considered but not given or refused? Why? @ -none Did you discuss the management of the patient with other professionals (professionals i.e. , PA, UPHOLSTERER HELPER, lab, RT, psych nurse, social scientist, supply officer, teacher, alumni relations officer, case supervisor)? Give summary @ -no Was smoking cessation discussed for >3mins.? @ -no Was critical care preformed (if so, how long)? @ -no Were there social determinants of health that impacted care today? How? (Homelessness, low income, unemployed, alcoholism, drug addiction, transp ortation, low edu. Level, literacy, decrease access to med. care, longterm, rehab)? @ -none Was there de-escalation of care discussed even if they declined (Discuss DNR or withdrawal of care, Hospice)? DNR status @ -no What co-morbidities impacted this encounter? (DM, HTN, Smoking, COPD, CAD, Cancer, CVA, ARF, Chemo, Hep., AIDS, mental health diagnosis, sleep apnea, morbid obesity)? @ -none Was patient admitted / discharged? Hospital course, mention meds given and route, prescriptions, significant lab abnormalities, going to OR and other pertinent info. @ - 78 male to ER for evaluation of anemia with dark bowel movements. Patient at this time will be transferred back to facility with improving hemoglobin from yesterday Discharge Undiagnosed new problem with uncertain prognosis? @ -no Drug Therapy requiring intensive monitoring for toxicity (Heparin, Nitro, Insulin, Cardizem)? @ -no Were any procedures done? @ -no Diagnosis/symptom? @ -Anemia Acute, or Chronic, or Acute on Chronic? @ -Acute Uncomplicated (without systemic symptoms) or Complicated (systemic symptoms)? @ -Complicated Side effects of treatment? @ -no Exacerbation, Progression, or Severe Exacerbation? @ -exacerbation Poses a threat to life or bodily function? How? (Chest pain, USA, ND, pneumonia, PE, COPD, DKA, ARF, appy, cholecystitis, CVA, Diverticulitis, Homicidal, Suicidal, threat to staff... and all critical care pts) @ -yes concern for GI bleed Reevaluation #5: Differential GI Bleed: Esophageal varices, aortoenteric fistula, Elysia-Way, gastritis, peptic ulcer disease, diverticulosis, inflammatory bowel disease, hemorrhoids, fissure, colitis, malignancy, Meckels diverticulum, this is not meant to be an all- inclusive list. Medical Decision Making - Medical Decision Making 78 male to ER for evaluation of anemia with dark bowel movements. Patient at this time will be transferred back to facility with improving hemoglobin from yesterday - Lab Data Result diagrams: 11/02/23 18:30 11/02/23 18:30 Lab Results 11/02/23 11/02/23 11/02/23 Range/Units 18:25 18:30 18:30 WBC 12.7 H (3.8-10.6) k/uL RBC 2.63 L (4.30-5.90) m/uL Hgb 8.0 L (13.0-17.5) gm/dL Hct 25.3 L (39.0-53.0) % MCV 96.2 (80.0-100.0) fL MCH 30.6 (25.0-35.0) pg MCHC 31.8 (31.0-37.0) g/dL RDW 14.1 (11.5-15.5) % Plt Count 245 (150-450) k/uL MPV 9.8 Neutrophils % 72 % Lymphocytes % 17 % Monocytes % 8 % Eosinophils % 1 % Basophils % 0 % Neutrophils # 9.1 H (1.3-7.7) k/uL Lymphocytes # 2.2 (1.0-4.8) k/uL Monocytes # 1.0 (0-1.0) k/uL Eosinophils # 0.2 (0-0.7) k/uL Basophils # 0.0 (0-0.2) k/uL Hypochromasia Slight Poikilocytosis Slight APTT 21.1 L (22.0-30.0) sec Sodium (137-145) mmol/L Potassium (3.5-5.1) mmol/L Chloride (98-107) mmol/L Carbon Dioxide (22-30) mmol/L Anion Gap mmol/L BUN (9-20) mg/dL Creatinine (0.66-1.25) mg/dL Est GFR (CKD-EPI)AfAm (>60 ml/min/1.73 sqM) Est GFR (CKD-EPI)NonAf (>60 ml/min/1.73 sqM) Glucose (74-99) mg/dL Calcium (8.4-10.2) mg/dL Magnesium (1.6-2.3) mg/dL Total Bilirubin (0.2-1.3) mg/dL AST (17-59) U/L ALT (4-49) U/L Alkaline Phosphatase (38-126) U/L Troponin I (0.000-0.034) ng/mL Total Protein (6.3-8.2) g/dL Albumin (3.5-5.0) g/dL Lipase (23-300) U/L Blood Type Blood Type Confirm A Positive Blood Type Recheck Bld Type Recheck Status Antibody Screen Spec Expiration Date 11/02/23 11/02/23 11/02/23 Range/Units 18:30 18:30 18:30 WBC (3.8-10.6) k/uL RBC (4.30-5.90) m/uL Hgb (13.0-17.5) gm/dL Hct (39.0-53.0) % MCV (80.0-100.0) fL MCH (25.0-35.0) pg MCHC (31.0-37.0) g/dL RDW (11.5-15.5) % Plt Count (150-450) k/uL MPV Neutrophils % % Lymphocytes % % Monocytes % % Eosinophils % % Basophils % % Neutrophils # (1.3-7.7) k/uL Lymphocytes # (1.0-4.8) k/uL Monocytes # (0-1.0) k/uL Eosinophils # (0-0.7) k/uL Basophils # (0-0.2) k/uL Hypochromasia Poikilocytosis APTT (22.0-30.0) sec Sodium 138 (137-145) mmol/L Potassium 4.1 (3.5-5.1) mmol/L Chloride 106 (98-107) mmol/L Carbon Dioxide 22 (22-30) mmol/L Anion Gap 10 mmol/L BUN 21 H (9-20) mg/dL Creatinine 1.17 (0.66-1.25) mg/dL Est GFR (CKD-EPI)AfAm 68 (>60 ml/min/1.73 sqM) Est GFR (CKD-EPI)NonAf 59 (>60 ml/min/1.73 sqM) Glucose 80 (74-99) mg/dL Calcium 9.0 (8.4-10.2) mg/dL Magnesium 2.6 H (1.6-2.3) mg/dL Total Bilirubin 0.6 (0.2-1.3) mg/dL AST 24 (17-59) U/L ALT 18 (4-49) U/L Alkaline Phosphatase 51 (38-126) U/L Troponin I 0.032 (0.000-0.034) ng/mL Total Protein 6.7 (6.3-8.2) g/dL Albumin 3.7 (3.5-5.0) g/dL Lipase 248 (23-300) U/L Blood Type A Positive Blood Type Confirm Blood Type Recheck No Previous Record Bld Type Recheck Status CABO Indicated Antibody Screen NEGATIVE Spec Expiration Date 11/05/20232329 Disposition Clinical Impression: Weakness, Dementia, Anemia Disposition: HOME SELF-CARE Condition: Fair Instructions (If sedation given, give patient instructions): Anemia (ED) Is patient prescribed a controlled substance at d/c from ED?: No Referrals: Gala Ibarra DO [Primary Care Provider] - 1-2 days Time of Disposition: 19:35
[2023-11-02 17:35] VITALS: TEMP 99.9
[2023-11-02] MEDS: PANTOPRAZOLE 40 MG/10 ML VIAL IVP STA (18:21)
[2023-11-02] MEDS: ONDANSETRON 4 MG/2 ML VIAL IVP STA (18:23)
[2023-11-02] MEDS: SODIUM CHLORIDE 0.9% 500 ML 500 ML IV STA (18:42)
[2023-11-02 18:51] LABS: Basophils % (A) 0 %; Eosinophils # (A) 0.2 k/uL (0-0.7); Eosinophils % (A) 1 %; HCT 25.3 % (39.0-53.0); Hypochromasia Slight; Lymphocytes # (A) 2.2 k/uL (1.0-4.8); Lymphocytes % (A) 17 %; MCH 30.6 pg (25.0-35.0); MCHC 31.8 g/dL (31.0-37.0); MCV 96.2 fL (80.0-100.0); Mean Platelet Volume 9.8; Monocytes % (A) 8 %; Neutrophils # (A) 9.1 k/uL (1.3-7.7); Neutrophils % (A) 72 %; Platelet Count 245 k/uL (150-450); Poikilocytosis Slight; RBC 2.63 m/uL (4.30-5.90); RDW 14.1 % (11.5-15.5); WBC 12.7 k/uL (3.8-10.6)
[2023-11-02 18:59] LABS: ALT 18 U/L (4-49); AST 24 U/L (17-59); African American GFR (CKD) 68 (>60 ml/min/1.73 sqM); Albumin 3.7 g/dL (3.5-5.0); Alkaline Phosphatase 51 U/L (38-126); Anion Gap 10 mmol/L; Blood Urea Nitrogen 21 mg/dL (9-20); Carbon Dioxide 22 mmol/L (22-30); Chloride 106 mmol/L (98-107); Glucose 80 mg/dL (74-99); Lipase 248 U/L (23-300); Magnesium 2.6 mg/dL (1.6-2.3); Non-African American GFR(CKD) 59 (>60 ml/min/1.73 sqM); Potassium 4.1 mmol/L (3.5-5.1); Sodium 138 mmol/L (137-145); Total Bilirubin 0.6 mg/dL (0.2-1.3); Total Protein 6.7 g/dL (6.3-8.2)
[2023-11-02] MEDS: HYDROmorphone 1 MG/ML 1 ML SYRINGE IVP STA (19:16)
[2023-11-02 22:26] VITALS: BP 144/76; PULSE 75; RESP 16
== END 2023-11-02 21:36 | disposition home or self-care (01) ==
LOC: EC 17:15
DX: D64.9 Anemia, unspecified (principal); F03.94 Unspecified dementia, unspecified severity, with anxiety; Z88.8 Allergy status to other drugs, medicaments and biological substances
CPT/HCPCS: 36415; 86900; 86901; 80053; 83690; 83735; 84484; 85025; 85730; 86850; 99285; 96374; 96375 ×2; J2405; J1170; C9113

== ENCOUNTER 2024-01-08 07:20 | Day surgery (SDC) | payer MEDICARE, OTHER ==
[2024-01-08] MEDS: IV FLUID CONTINUATION 1,000 ML IV ONE (07:51)
[2024-01-08 07:54] VITALS: RESP 16; TEMP 98.6
[2024-01-08] MEDS: LACTATED RINGERS 1,000 ML IV SCH (08:01)
[2024-01-08] MEDS ORDERED: LIDOCAINE 2% (PF) 20 MG/ML 5 ML VIAL ONE (08:40)
[2024-01-08] MEDS ORDERED: PROPOFOL 10 MG/ML 20 ML VIAL IV ONE (08:40)
--- NOTE | 2024-01-08 09:11 | P.PCN ---
Date of Procedure: 01/08/24 Procedure(s) Performed: Brief history: Patient is a pleasant 78-year-old white male scheduled for an elective upper endoscopy as well as colonoscopy as a part of evaluation of anemia and Hemoccult positive stool. He was recently noted to have a hemoglobin of 7.4 g/dL. He then denies any GI symptoms. He has been having some intermittent darker stools also. Procedure performed: Esophagogastroduodenoscopy with biopsy Colonoscopy Preoperative diagnosis: Anemia/dark stool and Hemoccult positive stool [place] [facility] [place] After informed consent was obtained from the patient was brought into the endoscopy unit and IV sedation was administered by anesthesia under continuous monitoring. Initially upper endoscopy was done. The Olympus GF 160 video endoscope was inserted inserted into the mouth and esophagus intubated without any difficulty and was gradually advanced into the stomach and duodenum and carefully examined. The bulb and second part of the duodenum appeared normal. This were done from the duodenum to evaluate for celiac disease. The scope was then withdrawn into the stomach adequately insufflated with air and upon careful examination the antrum had mild gastritis and biopsies were done from this area. Mucosa of the body, cardia and fundus appeared normal. The scope was then withdrawn into the esophagus. Mild to moderate size hiatal hernia noted. The GE junction was located at 35 cm to the incisors. 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 Rest of the esophagus appeared normal. Patient tolerated the procedure well. At this time the patient continued to remain sedation. Initial digital rectal examination was normal. Olympus CF 160 video colonoscope was then inserted into the rectum and gradually advanced to the right colon without any difficulty. At this point despite multiple attempts I was unable to advance the scope any further because the colon was very redundant. The right colon could not be examined. The prep was very poor. Careful examination was performed as the scope was gradually being withdrawn. The prep was extremely poor throughout the colon. The visualized portions of the transverse colon, descending colon, sigmoid colon and rectum appeared normal. Retroflexion was performed in the rectum and no lesions were noted. Patient tolerated the procedure well. Impression: 1. 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 Colonoscopy revealed extremely poor prep and the scope would be advanced up to the hepatic flexure and further advancement was not possible because of extremely redundant colon and poor prep in the right colon Recommendations: Findings of this examination were discussed with the patient as well as his family. If he continues to have persistent anemia repeat colonoscopy in the next few weeks with a 2-day prep. He was advised to follow-up with the biopsy results. If the biopsy confirms the presence of Cevallos's esophagus he can have repeat upper endoscopy in 3 years
[2024-01-08 09:36] VITALS: BP 120/70; PULSE 76
== END 2024-01-08 10:00 ==
LOC: ORWHC2ENDO 07:20
PROVIDERS: ATTEND Internal Medicine Gastroenterology
DX: K29.50 Unspecified chronic gastritis without bleeding (principal); K22.70 Barrett's esophagus without dysplasia; K44.9 Diaphragmatic hernia without obstruction or gangrene; D64.9 Anemia, unspecified; I10 Essential (primary) hypertension; E78.5 Hyperlipidemia, unspecified; I25.10 Atherosclerotic heart disease of native coronary artery without angina pectoris; F03.90 Unspecified dementia, unspecified severity, without behavioral disturbance, psychotic disturbance, mood disturbance, and anxiety; Z79.899 Other long term (current) drug therapy; Z86.73 Personal history of transient ischemic attack (TIA), and cerebral infarction without residual deficits
CPT/HCPCS: 45378; 43239; J2704; J2001; 88305; 88313

== ENCOUNTER 2024-03-05 06:34 | Day surgery (SDC) | payer MEDICARE, OTHER ==
[2024-03-03 12:29] VITALS: BMI 24.3
[2024-03-05] MEDS: IV FLUID CONTINUATION 1,000 ML IV ONE (07:15)
[2024-03-05 07:18] VITALS: RESP 16; TEMP 97.4
[2024-03-05] MEDS: LACTATED RINGERS 1,000 ML IV SCH (07:30)
[2024-03-05] MEDS ORDERED: PROPOFOL 10 MG/ML 20 ML VIAL IV ONE (07:47)
--- NOTE | 2024-03-05 08:13 | P.PCN ---
Date of Procedure: 03/05/24 Procedure(s) Performed: BRIEF HISTORY: Patient is a 79-year-old pleasant white male scheduled for an elective colonoscopy as a part of evaluation of iron deficiency anemia. He had an attempted colonoscopy about 6 weeks ago but it was incomplete because of extremely poor prep. PROCEDURE PERFORMED: Colonoscopy with snare polypectomy. PREOPERATIVE DIAGNOSIS: Iron deficiency anemia. IV sedation per Anesthesia. PROCEDURE: After informed consent was obtained, the patient, was brought into the endoscopy unit. IV sedation was administered by Anesthesia under continuous monitoring. Digital rectal examination was normal. Initially the Olympus CF-160 flexible video colonoscope was then inserted in the rectum, gradually advanced into the cecum without any difficulty. Careful examination was performed as the scope was gradually being withdrawn. Ileocecal valve and the appendiceal orifice were visualized and appeared normal. Prep was fair. There was a lot of thick stool noted throughout the entire colon which was thoroughly irrigated. In the base of the cecum there was a 5 mm sessile polyp that was removed by cold snare polypectomy. Rest of the mucosa of the cecum, ascending colon, transverse colon, descending colon, sigmoid colon, and rectum appeared normal. Scattered sigmoid diverticulosis he retroflexion was performed in the rectum and no lesions were seen. The patient tolerated the procedure well. IMPRESSION: 5 mm cecal polyp status post cold snare polypectomy Scattered sigmoid diverticulosis RECOMMENDATIONS: Findings of this examination were discussed with the patient as well as his family. He was advised to follow-up with the biopsy results. Continue with a high-fiber diet and MiraLAX on a daily basis..
[2024-03-05 08:45] VITALS: BP 131/82; PULSE 52
== END 2024-03-05 09:46 | disposition home or self-care (01) ==
LOC: ORWHC2ENDO 06:34
PROVIDERS: ATTEND Internal Medicine Gastroenterology
DX: D64.9 Anemia, unspecified
CPT/HCPCS: 45385; 88305